=== PATIENT | male | born 1960 | race African-American/Black ===

== ENCOUNTER 2018-09-26 07:41 | Inpatient (IN) | payer MEDICAID ==
[~2018-09-26] VITALS: Ht 193 cm; Wt 85.3 kg
[2018-09-26] MEDS ORDERED: ONDANSETRON HCL 4MG/2ML INJ IV STA (11:51)
[2018-09-26 12:06] LABS: HEMATOCRIT. 36.3 % (42.0-52.0); HEMOGLOBIN. 11.8 g/dL (14.0-18.0); MEAN CORPUSCULAR HEMOGLOBIN 29.5 pg (28.0-32.0); MEAN CORPUSCULAR VOLUME 90.9 fL (80.0-94.0); MEAN PLATELET VOLUME 8.5 fl (7.4-10.4); PLATELET 232 x1000/uL (130-400); RED BLOOD CELL COUNT 3.99 mill/uL (4.7-6.1); RED CELL DISTRIBUTION WIDTH 15.8 % (11.6-14.6)
[2018-09-26 12:08] LABS: CHLORIDE 94 mEq/L (98-107)
[2018-09-26 12:34] LABS: PLATELET ESTIMATE NORMAL
[2018-09-26] MEDS ORDERED: SODIUM POLYSTYRENE SULFONATE 15 G/60 ML BOT PO ONE (13:00)
[2018-09-26] MEDS ORDERED: ALBUTEROL (0.083%) 2.5MG/3ML NEB HHN ONE (13:00)
[2018-09-26] MEDS ORDERED: INSULIN REGULAR (HUMULIN R) 300UNITS/3ML IV ONE (13:00)
[2018-09-26] MEDS ORDERED: DEXTROSE 50% WATER 50ML SYRINGE IV ONE ×2 (13:00→16:57)
[2018-09-26] MEDS ORDERED: SODIUM BICARBONATE 8.4% 1 MEQ/ML 50ML SYR IV ONE (13:00)
[2018-09-26] MEDS ORDERED: ONDANSETRON HCL 4MG/2ML INJ IV PRN (13:45)
[2018-09-26] MEDS ORDERED: CLONIDINE 0.1MG TABLET PO PRN (13:45)
[2018-09-26] MEDS: ACETAMINOPHEN 325MG TABLET PO PRN (20:16)
[2018-09-27] VITALS: BP 111/66
[2018-09-27] MEDS: ZOLPIDEM TARTRATE 5MG TABLET PO PRN (00:19)
[2018-09-27 04:00] VITALS: BP 113/79
[2018-09-27 08:00] VITALS: BP 120/87
[2018-09-27] MEDS: ENOXAPARIN 30MG/0.3ML SYR SUBCUT SCH (08:15)
[2018-09-27 09:03] LABS: HEMATOCRIT. 33.9 % (42.0-52.0); HEMOGLOBIN. 11.1 g/dL (14.0-18.0); MEAN CORPUSCULAR HEMOGLOBIN 29.5 pg (28.0-32.0); MEAN CORPUSCULAR VOLUME 89.9 fL (80.0-94.0); MEAN PLATELET VOLUME 8.2 fl (7.4-10.4); PLATELET 223 x1000/uL (130-400); RED BLOOD CELL COUNT 3.77 mill/uL (4.7-6.1); RED CELL DISTRIBUTION WIDTH 15.3 % (11.6-14.6)
[2018-09-27 12:08] LABS: PLATELET ESTIMATE NORMAL
[2018-09-27] MEDS: HYDROCODONE/ACETAMINOPHEN 10/325MG TABLET PO PRN (15:05)
[2018-09-27] MEDS: CYCLOBENZAPRINE 10MG TABLET PO PRN (17:53)
[2018-09-27 20:00] VITALS: BP 102/73
[2018-09-28] VITALS (7 sets, daily range): BP systolic 94–134; BP diastolic 67–85
[2018-09-28] MEDS: HYDROCODONE/ACETAMINOPHEN 10/325MG TABLET PO PRN ×2 (05:37→23:36)
[2018-09-28 07:12] LABS: HEMATOCRIT. 35.7 % (42.0-52.0); HEMOGLOBIN. 11.6 g/dL (14.0-18.0); MEAN CORPUSCULAR HEMOGLOBIN 29.5 pg (28.0-32.0); MEAN CORPUSCULAR VOLUME 90.9 fL (80.0-94.0); MEAN PLATELET VOLUME 8.6 fl (7.4-10.4); PLATELET 213 x1000/uL (130-400); RED BLOOD CELL COUNT 3.93 mill/uL (4.7-6.1); RED CELL DISTRIBUTION WIDTH 15.3 % (11.6-14.6)
[2018-09-28] MEDS: ENOXAPARIN 30MG/0.3ML SYR SUBCUT SCH (08:13)
[2018-09-28] MEDS ORDERED: HEPARIN SODIUM 1,000 UNIT/1ML VIAL IV ONE (10:38)
[2018-09-28] MEDS ORDERED: BUPIVACAINE HCL/PF 0.5% (5MG/ML) 10ML ONE (10:38)
[2018-09-28] MEDS ORDERED: BACITRACIN 15GM TUBE TOP ONE (10:38)
[2018-09-28] MEDS ORDERED: LIDOCAINE HCL/PF 1% 10 MG/ML 5ML VIAL ONE (10:39)
[2018-09-28] MEDS ORDERED: MORPHINE SULFATE 4 MG/ML CPJ (NOT FOR IM USE) IV PRN (11:00)
[2018-09-28] MEDS ORDERED: GELATIN SPONGE,ABSORBABLE 12-7MM SPONGE ONE (11:17)
[2018-09-28] MEDS ORDERED: THROMBIN (BOVINE) 5000 UNITS/VIAL TOP ONE (11:17)
[2018-09-28] MEDS ORDERED: BACITRACIN 50,000 UNITS/VIAL ONE (11:20)
[2018-09-28] MEDS ORDERED: MIDAZOLAM HCL 2 MG/2 ML VIAL ONE (11:23)
[2018-09-28] MEDS ORDERED: PROPOFOL 200MG/20ML VIAL IV ONE (11:23)
[2018-09-28] MEDS ORDERED: FENTANYL CITRATE/PF 50MCG/ML 2ML VIAL ONE (11:23)
[2018-09-28] MEDS ORDERED: HYDROMORPHONE HCL/PF 2MG/ML CPJ IV PRN (12:30)
[2018-09-28] MEDS ORDERED: ONDANSETRON HCL 4MG/2ML INJ IV PRN (12:30)
[2018-09-28] MEDS: MORPHINE SULFATE 4 MG/ML CPJ (NOT FOR IM USE) IV PRN ×2 (13:52→20:43)
[2018-09-28] MEDS: ACETAMINOPHEN 500MG TABLET PO SCH ×2 (15:27→22:00)
[2018-09-28] MEDS: ZOLPIDEM TARTRATE 5MG TABLET PO PRN (20:59)
[2018-09-28] MEDS: CYCLOBENZAPRINE 10MG TABLET PO PRN (20:59)
[2018-09-29] VITALS: BP 118/78
[2018-09-29 04:00] VITALS: BP 111/82
[2018-09-29] MEDS: ACETAMINOPHEN 500MG TABLET PO SCH ×2 (06:00→14:00)
[2018-09-29 07:33] LABS: HEMATOCRIT. 35.1 % (42.0-52.0); HEMOGLOBIN. 11.4 g/dL (14.0-18.0); MEAN CORPUSCULAR HEMOGLOBIN 29.3 pg (28.0-32.0); MEAN CORPUSCULAR VOLUME 90.1 fL (80.0-94.0); MEAN PLATELET VOLUME 8.9 fl (7.4-10.4); PLATELET 222 x1000/uL (130-400); RED CELL DISTRIBUTION WIDTH 15.5 % (11.6-14.6)
[2018-09-29 07:58] VITALS: BP 114/78
[2018-09-29] MEDS: ENOXAPARIN 30MG/0.3ML SYR SUBCUT SCH (08:12)
[2018-09-29] MEDS: HYDROCODONE/ACETAMINOPHEN 10/325MG TABLET PO PRN ×4 (08:12→23:43)
[2018-09-29] MEDS: CYCLOBENZAPRINE 10MG TABLET PO PRN (08:15)
[2018-09-29 11:02] LABS: PLATELET ESTIMATE NORMAL
[2018-09-29 12:00] VITALS: BP 114/60
[2018-09-29 14:54] LABS: PLATELET ESTIMATE NORMAL
[2018-09-29 16:07] VITALS: BP 102/70
[2018-09-29] MEDS: DIPHENHYDRAMINE 50MG/ML VIAL IV PRN (18:07)
[2018-09-29 20:00] VITALS: BP 109/74
[2018-09-29] MEDS: ZOLPIDEM TARTRATE 5MG TABLET PO PRN (23:44)
[2018-09-30] VITALS (10 sets, daily range): BP systolic 95–111; BP diastolic 56–82
[2018-09-30] MEDS: DIPHENHYDRAMINE 50MG/ML VIAL IV PRN ×2 (03:34→20:01)
[2018-09-30] MEDS: MORPHINE SULFATE 4 MG/ML CPJ (NOT FOR IM USE) IV PRN (03:46)
[2018-09-30] MEDS: HYDROCODONE/ACETAMINOPHEN 10/325MG TABLET PO PRN ×3 (08:36→20:00)
[2018-09-30] MEDS: ENOXAPARIN 30MG/0.3ML SYR SUBCUT SCH (08:37)
[2018-09-30] MEDS: ACETAMINOPHEN 500MG TABLET PO SCH (14:00)
[2018-09-30] MEDS: CYCLOBENZAPRINE 10MG TABLET PO PRN (17:04)
[2018-09-30] MEDS: ACETAMINOPHEN 325MG TABLET PO PRN (17:04)
[2018-10-01] VITALS: BP 115/66
[2018-10-01] MEDS: ZOLPIDEM TARTRATE 5MG TABLET PO PRN ×2 (01:05→01:07)
[2018-10-01] MEDS: HYDROCODONE/ACETAMINOPHEN 10/325MG TABLET PO PRN ×2 (01:12→22:37)
[2018-10-01 04:00] VITALS: BP 105/60
[2018-10-01 05:56] LABS: HEMOGLOBIN. 11.3 g/dL (14.0-18.0); MEAN CORPUSCULAR HEMOGLOBIN 29.5 pg (28.0-32.0); MEAN CORPUSCULAR VOLUME 91.1 fL (80.0-94.0); MEAN PLATELET VOLUME 8.7 fl (7.4-10.4); PLATELET 194 x1000/uL (130-400); RED BLOOD CELL COUNT 3.84 mill/uL (4.7-6.1); RED CELL DISTRIBUTION WIDTH 15.2 % (11.6-14.6)
[2018-10-01] MEDS: DIPHENHYDRAMINE 50MG/ML VIAL IV PRN ×2 (05:57→18:40)
[2018-10-01 08:00] VITALS: BP 120/80
[2018-10-01] MEDS: MORPHINE SULFATE 4 MG/ML CPJ (NOT FOR IM USE) IV PRN ×2 (08:59→15:49)
[2018-10-01] MEDS: CYCLOBENZAPRINE 10MG TABLET PO PRN (08:59)
[2018-10-01] MEDS: ENOXAPARIN 30MG/0.3ML SYR SUBCUT SCH (09:00)
[2018-10-01 12:00] VITALS: BP 122/79
[2018-10-01] MEDS: ACETAMINOPHEN 500MG TABLET PO SCH (15:48)
[2018-10-01 16:00] VITALS: BP 112/69
[2018-10-01 16:57] LABS: PLATELET ESTIMATE NORMAL
[2018-10-01 19:56] VITALS: BP 136/75
[2018-10-02] VITALS: BP 118/68
[2018-10-02] MEDS: MORPHINE SULFATE 4 MG/ML CPJ (NOT FOR IM USE) IV PRN (03:03)
[2018-10-02] MEDS: DIPHENHYDRAMINE 50MG/ML VIAL IV PRN ×3 (03:11→20:22)
[2018-10-02 04:00] VITALS: BP 113/60
[2018-10-02 06:16] LABS: HEMATOCRIT. 36.2 % (42.0-52.0); HEMOGLOBIN. 11.5 g/dL (14.0-18.0); MEAN CORPUSCULAR HEMOGLOBIN 29.2 pg (28.0-32.0); MEAN CORPUSCULAR VOLUME 91.7 fL (80.0-94.0); PLATELET 158 x1000/uL (130-400); RED BLOOD CELL COUNT 3.95 mill/uL (4.7-6.1); RED CELL DISTRIBUTION WIDTH 15.5 % (11.6-14.6)
[2018-10-02 08:00] VITALS: BP 122/81
[2018-10-02] MEDS: ENOXAPARIN 30MG/0.3ML SYR SUBCUT SCH (08:55)
[2018-10-02] MEDS: HYDROCODONE/ACETAMINOPHEN 10/325MG TABLET PO PRN ×3 (08:55→18:14)
[2018-10-02] MEDS: CYCLOBENZAPRINE 10MG TABLET PO PRN ×2 (08:55→18:13)
[2018-10-02 12:00] VITALS: BP 113/63
[2018-10-02 16:00] VITALS: BP 110/67
[2018-10-02 17:27] LABS: PLATELET ESTIMATE NORMAL
[2018-10-02 20:00] VITALS: BP 102/67
[2018-10-03] VITALS: BP 147/91
[2018-10-03 04:00] VITALS: BP 138/86
[2018-10-03 06:36] LABS: HEMATOCRIT. 31.4 % (42.0-52.0); HEMOGLOBIN. 10.6 g/dL (14.0-18.0); MEAN CORPUSCULAR HEMOGLOBIN 30.1 pg (28.0-32.0); MEAN CORPUSCULAR VOLUME 89.3 fL (80.0-94.0); MEAN PLATELET VOLUME 8.9 fl (7.4-10.4); PLATELET 182 x1000/uL (130-400); RED BLOOD CELL COUNT 3.52 mill/uL (4.7-6.1); RED CELL DISTRIBUTION WIDTH 15.1 % (11.6-14.6)
[2018-10-03 08:00] VITALS: BP 144/87
[2018-10-03] MEDS: CYCLOBENZAPRINE 10MG TABLET PO PRN (09:02)
[2018-10-03] MEDS: ENOXAPARIN 30MG/0.3ML SYR SUBCUT SCH (09:03)
[2018-10-03] MEDS: HYDROCODONE/ACETAMINOPHEN 10/325MG TABLET PO PRN ×3 (09:03→12:51)
[2018-10-03] MEDS: DIPHENHYDRAMINE 50MG/ML VIAL IV PRN (09:03)
[2018-10-03 12:00] VITALS: BP 110/72
[2018-10-03 13:23] LABS: PLATELET ESTIMATE NORMAL
[2018-10-03] MEDS: ACETAMINOPHEN 500MG TABLET PO SCH (13:31)
[2018-10-03 15:35] VITALS: BP 110/72
== END 2018-10-03 17:00 | disposition home or self-care (01) | DRG 444 ==
LOC: ER 07:52 → ENRESERV 22:32 → 8WST 23:35
PROVIDERS: ADMIT Internal Medicine; ATTEND Internal Medicine
PROC: 5A1D70Z Performance of Urinary Filtration, Intermittent, Less than 6 Hours Per Day (ICD-10-PCS; 2018-09-27)
PROC: 03180ZD Bypass Left Brachial Artery to Upper Arm Vein, Open Approach (ICD-10-PCS; principal; 2018-09-28)
PROC: 5A1D70Z Performance of Urinary Filtration, Intermittent, Less than 6 Hours Per Day (ICD-10-PCS; 2018-09-28)
PROC: 5A1D70Z Performance of Urinary Filtration, Intermittent, Less than 6 Hours Per Day (ICD-10-PCS; 2018-09-29)
PROC: 5A1D70Z Performance of Urinary Filtration, Intermittent, Less than 6 Hours Per Day (ICD-10-PCS; 2018-10-01)
PROC: 5A1D70Z Performance of Urinary Filtration, Intermittent, Less than 6 Hours Per Day (ICD-10-PCS; 2018-10-03)
DX: I12.0 Hypertensive chronic kidney disease with stage 5 chronic kidney disease or end stage renal disease (principal); E87.1 Hypo-osmolality and hyponatremia; N18.6 End stage renal disease; E87.5 Hyperkalemia; D63.8 Anemia in other chronic diseases classified elsewhere; M48.061 Spinal stenosis, lumbar region without neurogenic claudication; F19.10 Other psychoactive substance abuse, uncomplicated; M47.896 Other spondylosis, lumbar region; F17.200 Nicotine dependence, unspecified, uncomplicated; H54.61 Unqualified visual loss, right eye, normal vision left eye; Z99.2 Dependence on renal dialysis; Z59.0 Homelessness; Z71.6 Tobacco abuse counseling
CPT/HCPCS: 36415; 71045; 72148; 80048; 82962; 83605; 83880; 84484; 93005; 93970; 96374; 96375; 97116; 97162; 99285; C1893; J1200; J1644; J1650; J1815; J2250; J2270; J2405; J2704; J3010; J3490

== ENCOUNTER 2018-10-10 13:02 | Inpatient (IN) | payer MEDICAID ==
[~2018-10-10] VITALS: Ht 180.3 cm; Wt 86.7 kg
[2018-10-10 14:52] LABS: BASOPHILS % 0.8 % (0.0-2.0); EOSINOPHILS % 1.8 % (0.0-5.0); HEMATOCRIT. 31.3 % (42.0-52.0); HEMOGLOBIN. 10.4 g/dL (14.0-18.0); LYMPHOCYTES % 14.6 % (20.0-50.0); MEAN CORPUSCULAR HEMOGLOBIN 29.7 pg (28.0-32.0); MEAN CORPUSCULAR VOLUME 89.4 fL (80.0-94.0); MEAN PLATELET VOLUME 7.9 fl (7.4-10.4); MONOCYTES % 13.6 % (2.0-8.0); NEUTROPHILS % 69.2 % (40.0-76.0); PLATELET 197 x1000/uL (130-400); RED CELL DISTRIBUTION WIDTH 15.3 % (11.6-14.6)
[2018-10-10 15:04] LABS: CHLORIDE 95 mEq/L (98-107); PROTHROMBIN TIME 10.7 sec (9.6-11.0)
[2018-10-10 22:00] VITALS: BP 154/93
[2018-10-11] MEDS ORDERED: EPOETIN ALFA 4000UNITS/ML VIAL SUBCUT NR (01:00)
[2018-10-11] MEDS ORDERED: METO-411 MT (02:39)
[2018-10-11] MEDS ORDERED: LISI-604 MT (02:39)
[2018-10-11] MEDS ORDERED: DILT360C27 MT (02:39)
[2018-10-11] MEDS ORDERED: MAGN400C MT (02:39)
[2018-10-11] MEDS ORDERED: DOCU-138 MT (02:39)
[2018-10-11] MEDS ORDERED: ISOS60TA4 MT (02:39)
[2018-10-11] MEDS ORDERED: EPOE200014 IJ (02:39)
[2018-10-11] MEDS ORDERED: ZOLPIDEM TARTRATE 5MG TABLET PO PRN (02:45)
[2018-10-11] MEDS ORDERED: CLONIDINE 0.2MG TABLET PO PRN (03:45)
[2018-10-11 04:00] VITALS: BP 129/76
[2018-10-11] MEDS: HYDROCODONE/ACETAMINOPHEN 10/325MG TABLET PO PRN ×3 (04:19→20:49)
[2018-10-11 08:00] VITALS: BP 123/94
[2018-10-11] MEDS: ISOSORBIDE MONONITRATE 60MG TABLET SR 24HR PO SCH (08:47)
[2018-10-11] MEDS: MAGNESIUM OXIDE 400MG TABLET PO SCH (08:48)
[2018-10-11] MEDS: DILTIAZEM HCL 180MG CAPSULE CD 24HR PO SCH (08:48)
[2018-10-11] MEDS: METOPROLOL TARTRATE 50MG TABLET PO SCH ×2 (08:48→20:48)
[2018-10-11] MEDS: LISINOPRIL 20MG TABLET PO SCH ×2 (08:49→20:48)
[2018-10-11] MEDS: DOCUSATE SODIUM 100MG CAPSULE PO SCH (09:00)
[2018-10-11 10:21] LABS: HEMOGLOBIN. 10.8 g/dL (14.0-18.0); MEAN CORPUSCULAR HEMOGLOBIN 29.3 pg (28.0-32.0); MEAN CORPUSCULAR VOLUME 89.5 fL (80.0-94.0); PLATELET 206 x1000/uL (130-400); RED BLOOD CELL COUNT 3.68 mill/uL (4.7-6.1); RED CELL DISTRIBUTION WIDTH 15.7 % (11.6-14.6)
[2018-10-11 12:41] VITALS: BP 140/82
[2018-10-11 14:56] LABS: PLATELET ESTIMATE NORMAL
[2018-10-11] MEDS: ACETAMINOPHEN 650MG/20.3ML UDC PO PRN (16:43)
[2018-10-11 16:54] VITALS: BP 104/66
[2018-10-11 20:25] VITALS: BP 113/70
[2018-10-11] MEDS: DIPHENHYDRAMINE 50MG/ML VIAL IV PRN (22:24)
[2018-10-12] VITALS (7 sets, daily range): BP systolic 101–142; BP diastolic 58–92
[2018-10-12] MEDS: HYDROCODONE/ACETAMINOPHEN 10/325MG TABLET PO PRN ×3 (01:36→19:20)
[2018-10-12] MEDS: ACETAMINOPHEN 650MG/20.3ML UDC PO PRN (05:33)
[2018-10-12] MEDS: ISOSORBIDE MONONITRATE 60MG TABLET SR 24HR PO SCH (08:29)
[2018-10-12] MEDS: DILTIAZEM HCL 180MG CAPSULE CD 24HR PO SCH (08:29)
[2018-10-12] MEDS: LISINOPRIL 20MG TABLET PO SCH ×2 (08:31→21:08)
[2018-10-12] MEDS: METOPROLOL TARTRATE 50MG TABLET PO SCH ×2 (08:31→21:08)
[2018-10-12] MEDS: DOCUSATE SODIUM 100MG CAPSULE PO SCH (08:36)
[2018-10-12] MEDS: MAGNESIUM OXIDE 400MG TABLET PO SCH (08:36)
[2018-10-12] MEDS ORDERED: BACITRACIN 15GM TUBE TOP ONE (10:30)
[2018-10-12] MEDS ORDERED: LIDOCAINE HCL 1% 20ML VIAL (Pyxis) INJ ONE ×2 (10:30→15:43)
[2018-10-12] MEDS ORDERED: THROMBIN (BOVINE) 5000 UNITS/VIAL TOP ONE (10:30)
[2018-10-12] MEDS ORDERED: NORMAL SALINE 0.9% 10 ML SYR ONE (10:31)
[2018-10-12] MEDS ORDERED: BUPIVACAINE HCL/PF 0.5% (5MG/ML) 10ML ONE ×3 (10:31→15:40)
[2018-10-12] MEDS ORDERED: HEPARIN SODIUM 1,000 UNIT/1ML VIAL IV ONE (10:31)
[2018-10-12] MEDS ORDERED: SODIUM CHLORIDE 0.9% 250 ML IV ONE (10:32)
[2018-10-12] MEDS ORDERED: BACITRACIN 50,000 UNITS/VIAL ONE (10:32)
[2018-10-12] MEDS ORDERED: FENTANYL CITRATE/PF 50MCG/ML 2ML VIAL ONE (15:33)
[2018-10-12] MEDS ORDERED: MIDAZOLAM HCL 2 MG/2 ML VIAL ONE (15:33)
[2018-10-12] MEDS ORDERED: PROPOFOL 200MG/20ML VIAL IV ONE (15:43)
[2018-10-12] MEDS ORDERED: FENTANYL CITRATE/PF 50MCG/ML 2ML VIAL IV PRN (17:00)
[2018-10-12] MEDS ORDERED: ONDANSETRON HCL 4MG/2ML INJ IV PRN (17:00)
[2018-10-12] MEDS ORDERED: METOCLOPRAMIDE HCL 10MG/2ML VIAL IV PRN (17:00)
[2018-10-12] MEDS ORDERED: EPOETIN ALFA 4000UNITS/ML VIAL SUBCUT SCH (21:00)
[2018-10-12] MEDS: MORPHINE SULFATE 4 MG/ML CPJ (NOT FOR IM USE) IV PRN (21:13)
[2018-10-13] MEDS: DIPHENHYDRAMINE 50MG/ML VIAL IV PRN ×2 (00:43→04:01)
[2018-10-13 03:54] VITALS: BP 128/84
[2018-10-13] MEDS: HYDROCODONE/ACETAMINOPHEN 10/325MG TABLET PO PRN ×3 (05:55→20:47)
[2018-10-13] MEDS: MAGNESIUM OXIDE 400MG TABLET PO SCH (06:18)
[2018-10-13 08:00] VITALS: BP 135/78
[2018-10-13] MEDS ORDERED: ALTEPLASE 2MG/VIAL ITC NR (08:00)
[2018-10-13] MEDS: DOCUSATE SODIUM 100MG CAPSULE PO SCH (09:00)
[2018-10-13] MEDS: ACETAMINOPHEN 650MG/20.3ML UDC PO PRN (09:11)
[2018-10-13] MEDS: METOPROLOL TARTRATE 50MG TABLET PO SCH ×2 (09:12→20:46)
[2018-10-13] MEDS: LISINOPRIL 20MG TABLET PO SCH ×2 (09:12→20:46)
[2018-10-13] MEDS: DILTIAZEM HCL 180MG CAPSULE CD 24HR PO SCH (09:13)
[2018-10-13] MEDS: ISOSORBIDE MONONITRATE 60MG TABLET SR 24HR PO SCH (09:13)
[2018-10-13] MEDS: IRON SUCROSE COMPLEX 100 MG/5 ML ML IV SCH (09:14)
[2018-10-13] MEDS: MORPHINE SULFATE 4 MG/ML CPJ (NOT FOR IM USE) IV PRN (11:52)
[2018-10-13 12:00] VITALS: BP 117/73
[2018-10-13] MEDS ORDERED: SODIUM BICARBONATE 4% (2.4MEQ) 5ML VIAL IV ONE (12:34)
[2018-10-13] MEDS ORDERED: LIDOCAINE HCL 1% 20ML VIAL (Pyxis) INJ ONE (12:34)
[2018-10-13 16:00] VITALS: BP 121/74
[2018-10-13 20:00] VITALS: BP 136/84
[2018-10-14] VITALS: BP 128/80
[2018-10-14] MEDS: ONDANSETRON HCL 4MG/2ML INJ IV PRN ×2 (00:08→20:49)
[2018-10-14] MEDS: PANTOPRAZOLE SODIUM 40 MG/VIAL IV SCH ×2 (00:08→20:49)
[2018-10-14] MEDS: ACETAMINOPHEN 650MG/20.3ML UDC PO PRN (03:06)
[2018-10-14 04:00] VITALS: BP 122/72
[2018-10-14] MEDS: MORPHINE SULFATE 4 MG/ML CPJ (NOT FOR IM USE) IV PRN ×2 (05:20→22:00)
[2018-10-14 06:31] LABS: BASOPHILS % 0.5 % (0.0-2.0); HEMATOCRIT. 35.3 % (42.0-52.0); HEMOGLOBIN. 11.6 g/dL (14.0-18.0); LYMPHOCYTES % 7.9 % (20.0-50.0); MEAN CORPUSCULAR HEMOGLOBIN 29.5 pg (28.0-32.0); MEAN CORPUSCULAR VOLUME 89.6 fL (80.0-94.0); MEAN PLATELET VOLUME 8.4 fl (7.4-10.4); MONOCYTES % 11.6 % (2.0-8.0); PLATELET 153 x1000/uL (130-400); RED BLOOD CELL COUNT 3.93 mill/uL (4.7-6.1); RED CELL DISTRIBUTION WIDTH 15.4 % (11.6-14.6)
[2018-10-14 08:00] VITALS: BP 107/52
[2018-10-14] MEDS: ISOSORBIDE MONONITRATE 60MG TABLET SR 24HR PO SCH (09:00)
[2018-10-14] MEDS: DILTIAZEM HCL 180MG CAPSULE CD 24HR PO SCH (09:00)
[2018-10-14] MEDS: DOCUSATE SODIUM 100MG CAPSULE PO SCH (09:00)
[2018-10-14] MEDS: METOPROLOL TARTRATE 50MG TABLET PO SCH ×2 (09:00→20:57)
[2018-10-14] MEDS: LISINOPRIL 20MG TABLET PO SCH ×2 (09:00→20:57)
[2018-10-14] MEDS: IRON SUCROSE COMPLEX 100 MG/5 ML ML IV SCH (10:00)
[2018-10-14] MEDS: MAGNESIUM OXIDE 400MG TABLET PO SCH (10:00)
[2018-10-14] MEDS: HYDROCODONE/ACETAMINOPHEN 10/325MG TABLET PO PRN ×2 (10:42→18:15)
[2018-10-14 12:00] VITALS: BP 104/56
[2018-10-14 16:00] VITALS: BP 141/81
[2018-10-14 20:00] VITALS: BP 134/68
[2018-10-14] MEDS: DIPHENHYDRAMINE 50MG/ML VIAL IV PRN (20:55)
[2018-10-15] VITALS: BP 129/72
[2018-10-15] MEDS: HYDROCODONE/ACETAMINOPHEN 10/325MG TABLET PO PRN ×2 (02:05→08:46)
[2018-10-15 04:00] VITALS: BP 122/73
[2018-10-15] MEDS: ONDANSETRON HCL 4MG/2ML INJ IV PRN ×2 (05:35→18:55)
[2018-10-15] MEDS: MORPHINE SULFATE 4 MG/ML CPJ (NOT FOR IM USE) IV PRN ×2 (05:36→13:45)
[2018-10-15] MEDS: DOCUSATE SODIUM 100MG CAPSULE PO SCH ×2 (08:45→08:58)
[2018-10-15] MEDS: IRON SUCROSE COMPLEX 100 MG/5 ML ML IV SCH (08:45)
[2018-10-15] MEDS: DILTIAZEM HCL 180MG CAPSULE CD 24HR PO SCH (08:49)
[2018-10-15] MEDS: ISOSORBIDE MONONITRATE 60MG TABLET SR 24HR PO SCH (08:50)
[2018-10-15] MEDS: METOPROLOL TARTRATE 50MG TABLET PO SCH ×2 (08:50→21:00)
[2018-10-15] MEDS: LISINOPRIL 20MG TABLET PO SCH ×2 (08:51→21:00)
[2018-10-15] MEDS: MAGNESIUM OXIDE 400MG TABLET PO SCH (08:57)
[2018-10-15 12:17] VITALS: BP_SYST 125; BP_SYST 130; BP_DIAS 78; BP_DIAS 85
[2018-10-15] MEDS ORDERED: LEVOFLOXACIN 250MG PREMIX 50 ML IV ONE (15:45)
[2018-10-15] MEDS ORDERED: VANCOMYCIN 1,500 MG in DEXT 5% WATER 250 ML IV ONE (15:45)
[2018-10-15 15:55] VITALS: BP 129/74
[2018-10-15] MEDS ORDERED: LEVOFLOXACIN 500MG PREMIX 100 ML IV NR (17:00)
[2018-10-15 19:50] LABS: HEPATITIS B SURFACE ANTIGEN NEGATIVE
[2018-10-15 19:58] LABS: HEPATITIS B SURFACE AB 5.5 mIU/mL
[2018-10-15 20:00] VITALS: BP 146/87
[2018-10-15] MEDS: PANTOPRAZOLE SODIUM 40 MG/VIAL IV SCH (21:53)
[2018-10-16] VITALS: BP 102/87
[2018-10-16] MEDS ORDERED: VANCOMYCIN 2,000 MG in DEXT 5% WATER 500 ML IV NR ×2
[2018-10-16] MEDS: MORPHINE SULFATE 4 MG/ML CPJ (NOT FOR IM USE) IV PRN (01:41)
[2018-10-16] MEDS: HYDROCODONE/ACETAMINOPHEN 10/325MG TABLET PO PRN (01:48)
[2018-10-16] MEDS: ACETAMINOPHEN 650MG/20.3ML UDC PO PRN (03:54)
[2018-10-16] MEDS ORDERED: LEVOFLOXACIN 500MG PREMIX 100 ML IV NR (04:00)
[2018-10-16 04:04] VITALS: BP 117/78
[2018-10-16] MEDS: ONDANSETRON HCL 4MG/2ML INJ IV PRN (06:33)
[2018-10-16 08:11] LABS: BASOPHILS % 0.1 % (0.0-2.0); EOSINOPHILS % 2.2 % (0.0-5.0); HEMATOCRIT. 34.9 % (42.0-52.0); HEMOGLOBIN. 11.2 g/dL (14.0-18.0); LYMPHOCYTES % 8.5 % (20.0-50.0); MEAN CORPUSCULAR HEMOGLOBIN 29.2 pg (28.0-32.0); MEAN CORPUSCULAR VOLUME 90.6 fL (80.0-94.0); MEAN PLATELET VOLUME 8.1 fl (7.4-10.4); MONOCYTES % 14.8 % (2.0-8.0); NEUTROPHILS % 74.4 % (40.0-76.0); PLATELET 201 x1000/uL (130-400); RED BLOOD CELL COUNT 3.85 mill/uL (4.7-6.1); RED CELL DISTRIBUTION WIDTH 15.6 % (11.6-14.6)
[2018-10-16] MEDS: DILTIAZEM HCL 180MG CAPSULE CD 24HR PO SCH (08:14)
[2018-10-16] MEDS: IRON SUCROSE COMPLEX 100 MG/5 ML ML IV SCH (08:30)
[2018-10-16] MEDS: MAGNESIUM OXIDE 400MG TABLET PO SCH (08:31)
[2018-10-16] MEDS: ISOSORBIDE MONONITRATE 60MG TABLET SR 24HR PO SCH (08:31)
[2018-10-16] MEDS: LISINOPRIL 20MG TABLET PO SCH (09:00)
[2018-10-16] MEDS: DOCUSATE SODIUM 100MG CAPSULE PO SCH (09:00)
[2018-10-16] MEDS: METOPROLOL TARTRATE 50MG TABLET PO SCH (09:00)
[2018-10-16 13:30] VITALS: BP 117/49
[2018-10-17] MEDS ORDERED: LEVOFLOXACIN 250MG PREMIX 50 ML IV SCH (17:00)
== END 2018-10-16 14:23 | disposition home or self-care (01) | DRG 444 ==
LOC: ER 13:02 → 6WST 15:15 → EDBEDREQ 15:17 → ENRESERV 20:20
PROVIDERS: ADMIT Internal Medicine; ATTEND Internal Medicine
PROC: 03180JD Bypass Left Brachial Artery to Upper Arm Vein with Synthetic Substitute, Open Approach (ICD-10-PCS; principal; 2018-10-12)
PROC: 5A1D70Z Performance of Urinary Filtration, Intermittent, Less than 6 Hours Per Day (ICD-10-PCS; 2018-10-12)
PROC: 0JH63XZ Insertion of Tunneled Vascular Access Device into Chest Subcutaneous Tissue and Fascia, Percutaneous Approach (ICD-10-PCS; 2018-10-13)
PROC: 02HV33Z Insertion of Infusion Device into Superior Vena Cava, Percutaneous Approach (ICD-10-PCS; 2018-10-13)
PROC: B5181ZA Fluoroscopy of Superior Vena Cava using Low Osmolar Contrast, Guidance (ICD-10-PCS; 2018-10-13)
PROC: 5A1D70Z Performance of Urinary Filtration, Intermittent, Less than 6 Hours Per Day (ICD-10-PCS; 2018-10-15)
DX: T82.41XA Breakdown (mechanical) of vascular dialysis catheter, initial encounter (principal); I13.2 Hypertensive heart and chronic kidney disease with heart failure and with stage 5 chronic kidney disease, or end stage renal disease; N18.6 End stage renal disease; E11.22 Type 2 diabetes mellitus with diabetic chronic kidney disease; E87.1 Hypo-osmolality and hyponatremia; T82.868A Thrombosis due to vascular prosthetic devices, implants and grafts, initial encounter; D64.9 Anemia, unspecified; F17.210 Nicotine dependence, cigarettes, uncomplicated; H54.8 Legal blindness, as defined in USA; I50.9 Heart failure, unspecified; J44.9 Chronic obstructive pulmonary disease, unspecified; Y71.2 Prosthetic and other implants, materials and accessory cardiovascular devices associated with adverse incidents; M19.90 Unspecified osteoarthritis, unspecified site; Z99.2 Dependence on renal dialysis; I25.2 Old myocardial infarction; Y92.89 Other specified places as the place of occurrence of the external cause; Z79.899 Other long term (current) drug therapy
CPT/HCPCS: 36415; 36582; 71045; 77001; 80048; 84484; 86706; 87340; 87493; 93005; 93306; 99285; C1750; C1768; C1769; C1893; C9113; J0885; J1200; J1642; J1644; J1956; J2250; J2270; J2405; J2704; J2997; J3010; J3370; J3490; J7042; J7050; J7060

== ENCOUNTER 2018-10-23 22:32 | Inpatient (IN) | payer MEDICAID ==
[~2018-10-23] VITALS: Ht 180.3 cm; Wt 84.0 kg
[~2018-10-23 22:32] MED LIST: DILT360C27 MT; DOCU-138 MT; EPOE200014 IJ; ISOS60TA4 MT; LISI-604 MT; MAGN400C MT; METO-411 MT
[2018-10-24] MEDS ORDERED: MORPHINE SULFATE 4 MG/ML CPJ (NOT FOR IM USE) IV STA (01:33)
[2018-10-24] MEDS ORDERED: ONDANSETRON HCL 4MG/2ML INJ IV STA (01:33)
[2018-10-24 03:46] LABS: EOSINOPHILS % 6.8 % (0.0-5.0); HEMATOCRIT. 30.7 % (42.0-52.0); HEMOGLOBIN. 10.3 g/dL (14.0-18.0); LYMPHOCYTES % 19.5 % (20.0-50.0); MEAN CORPUSCULAR HEMOGLOBIN 30.4 pg (28.0-32.0); MEAN CORPUSCULAR VOLUME 91.1 fL (80.0-94.0); MEAN PLATELET VOLUME 7.8 fl (7.4-10.4); MONOCYTES % 11.7 % (2.0-8.0); PLATELET 244 x1000/uL (130-400); RED BLOOD CELL COUNT 3.37 mill/uL (4.7-6.1); RED CELL DISTRIBUTION WIDTH 16.7 % (11.6-14.6)
[2018-10-24 03:53] LABS: CHLORIDE 96 mEq/L (98-107)
[2018-10-24 03:57] LABS: ETHANOL BLOOD < 10 mg/dL
[2018-10-24 03:59] LABS: PHOSPHORUS 4.1 mg/dL (2.5-4.9)
[2018-10-24 06:45] VITALS: BP 138/86
[2018-10-24 06:59] VITALS: BP 138/86
[2018-10-24 08:00] VITALS: BP 138/86
[2018-10-24] MEDS ORDERED: CLONIDINE 0.1MG TABLET PO PRN (08:45)
[2018-10-24] MEDS ORDERED: MAGNESIUM/ALUMINUM HYDROXIDE/SIMETHICONE 30ML UDC PO PRN (08:45)
[2018-10-24] MEDS ORDERED: ACETAMINOPHEN 325MG TABLET PO PRN (08:45)
[2018-10-24] MEDS ORDERED: ONDANSETRON HCL 4MG/2ML INJ IV PRN (08:45)
[2018-10-24] MEDS ORDERED: IPRATROPIUM/ALBUTEROL 0.5-3(2.5)MG/3ML NEB INH PRN (08:45)
[2018-10-24] MEDS ORDERED: DOCUSATE SODIUM 100MG CAPSULE PO PRN (08:45)
[2018-10-24 08:57] LABS: *AMPHETAMINES SCREEN URINE NEGATIVE (NEGATIVE); *BARBITURATES SCREEN URINE NEGATIVE (NEGATIVE); *BENZODIAZEPINES SCREEN URINE NEGATIVE (NEGATIVE); *COCAINE SCREEN URINE PRESUMTIVE POSITIVE (NEGATIVE)
[2018-10-24 08:58] LABS: CANNABINOID URINE SCREEN NEGATIVE (NEGATIVE); METHADONE URINE SCREEN NEGATIVE (NEGATIVE); OPIATES URINE SCREEN PRESUMTIVE POSITIVE (NEGATIVE); PHENCYCLIDINE URINE SCREEN NEGATIVE (NEGATIVE)
[2018-10-24] MEDS ORDERED: HEPARIN 5000 UNITS/ML VIAL IV PRN ×2 (09:00)
[2018-10-24] MEDS ORDERED: HEPARIN 25,000 UNITS PREMIX 500 ML IV PRN (10:00)
[2018-10-24 10:24] LABS: PARTIAL THROMBOPLASTIN TIME 29.7 sec (23.4-31.0); PROTHROMBIN TIME 10.4 sec (9.6-11.0)
[2018-10-24] MEDS ORDERED: HEPARIN 5000 UNITS/ML VIAL IV SCH (10:35)
[2018-10-24 11:54] VITALS: BP 118/64
[2018-10-24 16:00] VITALS: BP 116/67
[2018-10-24 20:00] VITALS: BP 126/67
[2018-10-24] MEDS: HYDROCODONE/ACETAMINOPHEN 5/325MG TABLET PO PRN (20:17)
[2018-10-24] MEDS ORDERED: EPOETIN ALFA 4000UNITS/ML VIAL SUBCUT SCH (21:00)
[2018-10-24] MEDS: IRON SUCROSE COMPLEX 100 MG/5 ML ML IV SCH (21:37)
[2018-10-25] MEDS: HYDROCODONE/ACETAMINOPHEN 5/325MG TABLET PO PRN ×4 (01:27→22:34)
[2018-10-25 04:00] VITALS: BP 131/73
[2018-10-25 07:30] LABS: BASOPHILS % 1.7 % (0.0-2.0); EOSINOPHILS % 7.2 % (0.0-5.0); HEMATOCRIT. 30.8 % (42.0-52.0); HEMOGLOBIN. 9.9 g/dL (14.0-18.0); MEAN CORPUSCULAR HEMOGLOBIN 29.6 pg (28.0-32.0); MEAN CORPUSCULAR VOLUME 91.8 fL (80.0-94.0); MEAN PLATELET VOLUME 8.3 fl (7.4-10.4); MONOCYTES % 13.1 % (2.0-8.0); PLATELET 175 x1000/uL (130-400); RED BLOOD CELL COUNT 3.35 mill/uL (4.7-6.1); RED CELL DISTRIBUTION WIDTH 16.6 % (11.6-14.6)
[2018-10-25 07:37] LABS: CHLORIDE 106 mEq/L (98-107)
[2018-10-25 07:47] LABS: LDL CHOLESTEROL 59 mg/dL (5-100)
[2018-10-25 07:48] LABS: HDL CHOLESTEROL 56 mg/dL (40-59)
[2018-10-25 08:00] VITALS: BP 138/83
[2018-10-25] MEDS: IRON SUCROSE COMPLEX 100 MG/5 ML ML IV SCH (09:20)
[2018-10-25 12:00] VITALS: BP 143/74
[2018-10-25 16:00] VITALS: BP 151/96
[2018-10-25 20:00] VITALS: BP 130/85
[2018-10-25] MEDS: DIPHENHYDRAMINE 50MG/ML VIAL IV PRN (22:10)
[2018-10-26] VITALS: BP 147/81
[2018-10-26 04:00] VITALS: BP 138/84
[2018-10-26] MEDS: HYDROCODONE/ACETAMINOPHEN 5/325MG TABLET PO PRN ×3 (04:08→19:42)
[2018-10-26 05:50] LABS: BASOPHILS % 2.8 % (0.0-2.0); EOSINOPHILS % 10.3 % (0.0-5.0); HEMOGLOBIN. 9.6 g/dL (14.0-18.0); LYMPHOCYTES % 30.8 % (20.0-50.0); MEAN CORPUSCULAR HEMOGLOBIN 29.8 pg (28.0-32.0); MEAN CORPUSCULAR VOLUME 92.8 fL (80.0-94.0); MEAN PLATELET VOLUME 8.3 fl (7.4-10.4); MONOCYTES % 11.5 % (2.0-8.0); NEUTROPHILS % 44.6 % (40.0-76.0); PLATELET 181 x1000/uL (130-400); RED BLOOD CELL COUNT 3.24 mill/uL (4.7-6.1); RED CELL DISTRIBUTION WIDTH 16.9 % (11.6-14.6)
[2018-10-26 08:00] VITALS: BP 141/86
[2018-10-26] MEDS ORDERED: MORPHINE SULFATE 4 MG/ML CPJ (NOT FOR IM USE) IV PRN (08:00)
[2018-10-26] MEDS ORDERED: BENZONATATE 100MG CAPSULE PO PRN (08:00)
[2018-10-26] MEDS: IRON SUCROSE COMPLEX 100 MG/5 ML ML IV SCH (09:14)
[2018-10-26] MEDS: GUAIFENESIN 200MG/10ML SUGAR FREE UDC PO PRN ×2 (09:48→21:34)
[2018-10-26 12:00] VITALS: BP 144/87
[2018-10-26 16:00] VITALS: BP 130/83
[2018-10-26] MEDS: DIPHENHYDRAMINE 50MG/ML VIAL IV PRN (19:42)
[2018-10-26 20:00] VITALS: BP 125/93
[2018-10-27 00:09] VITALS: BP 151/82
[2018-10-27 04:00] VITALS: BP 138/84
[2018-10-27] MEDS: HYDROCODONE/ACETAMINOPHEN 5/325MG TABLET PO PRN ×3 (04:27→18:45)
[2018-10-27 06:24] LABS: BASOPHILS % 2.4 % (0.0-2.0); EOSINOPHILS % 7.8 % (0.0-5.0); HEMATOCRIT. 30.2 % (42.0-52.0); HEMOGLOBIN. 9.8 g/dL (14.0-18.0); LYMPHOCYTES % 22.9 % (20.0-50.0); MEAN CORPUSCULAR HEMOGLOBIN 29.7 pg (28.0-32.0); MEAN CORPUSCULAR VOLUME 91.6 fL (80.0-94.0); MEAN PLATELET VOLUME 8.4 fl (7.4-10.4); MONOCYTES % 11.5 % (2.0-8.0); NEUTROPHILS % 55.4 % (40.0-76.0); PLATELET 154 x1000/uL (130-400); RED CELL DISTRIBUTION WIDTH 16.9 % (11.6-14.6)
[2018-10-27 08:00] VITALS: BP 151/88
[2018-10-27 12:00] VITALS: BP 131/92
[2018-10-27] MEDS: GUAIFENESIN 200MG/10ML SUGAR FREE UDC PO PRN (14:46)
[2018-10-27 16:00] VITALS: BP 133/88
[2018-10-27] MEDS: DIPHENHYDRAMINE 50MG/ML VIAL IV PRN ×2 (18:44→21:41)
[2018-10-27 20:00] VITALS: BP 137/83
[2018-10-27] MEDS: MORPHINE SULFATE 4 MG/ML CPJ (NOT FOR IM USE) IV PRN (21:41)
[2018-10-27] MEDS ORDERED: EPOETIN ALFA 4000UNITS/ML VIAL SUBCUT NR (22:30)
[2018-10-28 00:10] VITALS: BP 129/76
[2018-10-28] MEDS: GUAIFENESIN 200MG/10ML SUGAR FREE UDC PO PRN ×3 (00:34→23:57)
[2018-10-28] MEDS: HYDROCODONE/ACETAMINOPHEN 5/325MG TABLET PO PRN ×4 (00:39→23:57)
[2018-10-28 04:00] VITALS: BP 131/82
[2018-10-28 06:03] LABS: BASOPHILS % 2.3 % (0.0-2.0); EOSINOPHILS % 9.2 % (0.0-5.0); HEMATOCRIT. 28.7 % (42.0-52.0); HEMOGLOBIN. 9.5 g/dL (14.0-18.0); LYMPHOCYTES % 27.4 % (20.0-50.0); MEAN CORPUSCULAR HEMOGLOBIN 30.3 pg (28.0-32.0); MEAN CORPUSCULAR VOLUME 91.2 fL (80.0-94.0); MEAN PLATELET VOLUME 8.2 fl (7.4-10.4); MONOCYTES % 13.9 % (2.0-8.0); NEUTROPHILS % 47.2 % (40.0-76.0); PLATELET 162 x1000/uL (130-400); RED BLOOD CELL COUNT 3.15 mill/uL (4.7-6.1); RED CELL DISTRIBUTION WIDTH 16.7 % (11.6-14.6)
[2018-10-28 08:00] VITALS: BP 133/79
[2018-10-28 12:00] VITALS: BP 117/70
[2018-10-28 16:00] VITALS: BP 147/92
[2018-10-28] MEDS: DIPHENHYDRAMINE 50MG/ML VIAL IV PRN ×2 (16:22→20:32)
[2018-10-28 20:00] VITALS: BP 128/95
[2018-10-28] MEDS: MORPHINE SULFATE 4 MG/ML CPJ (NOT FOR IM USE) IV PRN (20:32)
[2018-10-29] VITALS (17 sets, daily range): BP systolic 117–152; BP diastolic 68–96
[2018-10-29] MEDS: HYDROCODONE/ACETAMINOPHEN 5/325MG TABLET PO PRN ×2 (06:40→20:55)
[2018-10-29] MEDS: DIPHENHYDRAMINE 50MG/ML VIAL IV PRN ×2 (06:41→15:40)
[2018-10-29] MEDS: GUAIFENESIN 200MG/10ML SUGAR FREE UDC PO PRN (11:19)
[2018-10-29] MEDS: MORPHINE SULFATE 4 MG/ML CPJ (NOT FOR IM USE) IV PRN (11:20)
[2018-10-29] MEDS ORDERED: LIDOCAINE HCL 1% 20ML VIAL (Pyxis) INJ ONE (11:24)
[2018-10-29] MEDS ORDERED: SODIUM BICARBONATE 4% (2.4MEQ) 5ML VIAL IV ONE (11:24)
[2018-10-29] MEDS ORDERED: IOHEXOL-300 100 ML BOTTLE ONE (11:24)
[2018-10-29] MEDS ORDERED: FENTANYL CITRATE/PF 50MCG/ML 2ML VIAL ONE (13:58)
[2018-10-29] MEDS ORDERED: ALTEPLASE 100MG/VIAL IV ONE (14:15)
[2018-10-29] MEDS ORDERED: ALTEPLASE 2MG/VIAL ITC NR (14:30)
[2018-10-29] MEDS ORDERED: FENTANYL CITRATE/PF 50MCG/ML 2ML VIAL IV NR (14:45)
[2018-10-30] VITALS: BP 142/89
[2018-10-30] MEDS: MORPHINE SULFATE 4 MG/ML CPJ (NOT FOR IM USE) IV PRN ×2 (00:06→09:14)
[2018-10-30] MEDS: DIPHENHYDRAMINE 50MG/ML VIAL IV PRN ×2 (00:06→09:14)
[2018-10-30 04:00] VITALS: BP 138/81
[2018-10-30] MEDS: HYDROCODONE/ACETAMINOPHEN 5/325MG TABLET PO PRN ×2 (06:17→10:51)
[2018-10-30] MEDS: GUAIFENESIN 200MG/10ML SUGAR FREE UDC PO PRN ×2 (06:22→10:49)
[2018-10-30 08:00] VITALS: BP 163/91
[2018-10-30 10:51] VITALS: BP 163/91
== END 2018-10-30 12:30 | disposition left against medical advice (07) | DRG 182 ==
LOC: ER 22:32 → 7WST 10-24 04:51 → EDBEDREQSVC 10-24 04:53 → EDBEDREQTM 10-24 04:53 → EDBEDREQ 10-24 04:53 → ENRESERV 10-24 05:29
PROVIDERS: ADMIT Internal Medicine; ATTEND Internal Medicine
PROC: 5A1D70Z Performance of Urinary Filtration, Intermittent, Less than 6 Hours Per Day (ICD-10-PCS; 2018-10-26)
PROC: 3E04317 Introduction of Other Thrombolytic into Central Vein, Percutaneous Approach (ICD-10-PCS; principal; 2018-10-29)
PROC: 057Y3ZZ Dilation of Upper Vein, Percutaneous Approach (ICD-10-PCS; 2018-10-29)
PROC: 037Y3ZZ Dilation of Upper Artery, Percutaneous Approach (ICD-10-PCS; 2018-10-29)
PROC: B51W1ZZ Fluoroscopy of Dialysis Shunt/Fistula using Low Osmolar Contrast (ICD-10-PCS; 2018-10-29)
PROC: B5181ZZ Fluoroscopy of Superior Vena Cava using Low Osmolar Contrast (ICD-10-PCS; 2018-10-29)
PROC: 5A1D70Z Performance of Urinary Filtration, Intermittent, Less than 6 Hours Per Day (ICD-10-PCS; 2018-10-29)
DX: T82.868A Thrombosis due to vascular prosthetic devices, implants and grafts, initial encounter (principal); I13.2 Hypertensive heart and chronic kidney disease with heart failure and with stage 5 chronic kidney disease, or end stage renal disease; I82.622 Acute embolism and thrombosis of deep veins of left upper extremity; E83.39 Other disorders of phosphorus metabolism; E87.1 Hypo-osmolality and hyponatremia; D50.9 Iron deficiency anemia, unspecified; F14.90 Cocaine use, unspecified, uncomplicated; I50.33 Acute on chronic diastolic (congestive) heart failure; I82.612 Acute embolism and thrombosis of superficial veins of left upper extremity; E87.5 Hyperkalemia; N18.6 End stage renal disease; H54.7 Unspecified visual loss; J44.9 Chronic obstructive pulmonary disease, unspecified; I77.0 Arteriovenous fistula, acquired; F17.200 Nicotine dependence, unspecified, uncomplicated; M19.90 Unspecified osteoarthritis, unspecified site; F19.90 Other psychoactive substance use, unspecified, uncomplicated; Z71.51 Drug abuse counseling and surveillance of drug abuser; Z79.899 Other long term (current) drug therapy; Z99.2 Dependence on renal dialysis
CPT/HCPCS: 36415; 36901; 71045; 73030; 80048; 80061; 80305; 80320; 82962; 83036; 83605; 83735; 84100; 84145; 84443; 93005; 93922; 93971; 96374; 96375; 99285; C1725; C1766; C1893; J0885; J1200; J1644; J2270; J2405; J2997; J3010; J3490; J7050; Q9967; G0480

== ENCOUNTER 2018-11-02 14:20 | Inpatient (IN) | payer MEDICAID ==
[~2018-11-02] VITALS: Ht 180.3 cm; Wt 83.9 kg
[2018-11-02 16:28] LABS: HEMATOCRIT. 33.7 % (42.0-52.0); HEMOGLOBIN. 10.6 g/dL (14.0-18.0); MEAN CORPUSCULAR HEMOGLOBIN 30.1 pg (28.0-32.0); MEAN CORPUSCULAR VOLUME 95.2 fL (80.0-94.0); MEAN PLATELET VOLUME 8.4 fl (7.4-10.4); PLATELET 243 x1000/uL (130-400); RED BLOOD CELL COUNT 3.54 mill/uL (4.7-6.1); RED CELL DISTRIBUTION WIDTH 17.4 % (11.6-14.6)
[2018-11-02 16:35] LABS: CHLORIDE 105 mEq/L (98-107); PROTHROMBIN TIME 10.3 sec (9.6-11.0)
[2018-11-02 16:56] LABS: PLATELET ESTIMATE NORMAL
[2018-11-02] MEDS ORDERED: IPRATROPIUM/ALBUTEROL 0.5-3(2.5)MG/3ML NEB INH PRN (19:30)
[2018-11-02] MEDS ORDERED: CLONIDINE 0.1MG TABLET PO PRN (19:30)
[2018-11-02] MEDS ORDERED: DOCUSATE SODIUM 100MG CAPSULE PO PRN (19:30)
[2018-11-02] MEDS ORDERED: ACETAMINOPHEN 325MG TABLET PO PRN (19:30)
[2018-11-02] MEDS ORDERED: ONDANSETRON HCL 4MG/2ML INJ IV PRN (19:30)
[2018-11-02 20:37] LABS: PHOSPHORUS 6.8 mg/dL (2.5-4.9)
[2018-11-02] MEDS ORDERED: EPOETIN ALFA 4000UNITS/ML VIAL SUBCUT ONE (22:45)
[2018-11-03] MEDS: HYDROCODONE/ACETAMINOPHEN 5/325MG TABLET PO PRN ×2 (02:30→22:36)
[2018-11-03 03:00] VITALS: BP 165/92
[2018-11-03] MEDS ORDERED: BENAZEPRIL 10MG TABLET PO SCH (03:00)
[2018-11-03 04:00] VITALS: BP 139/92
[2018-11-03] MEDS: MORPHINE SULFATE 4 MG/ML CPJ (NOT FOR IM USE) IV PRN ×3 (06:05→17:30)
[2018-11-03 08:00] VITALS: BP 151/94
[2018-11-03 08:06] LABS: HEMATOCRIT. 29.9 % (42.0-52.0); MEAN CORPUSCULAR VOLUME 93.1 fL (80.0-94.0); MEAN PLATELET VOLUME 8.4 fl (7.4-10.4); PLATELET 230 x1000/uL (130-400); RED BLOOD CELL COUNT 3.21 mill/uL (4.7-6.1); RED CELL DISTRIBUTION WIDTH 17.3 % (11.6-14.6)
[2018-11-03 12:00] LABS: PLATELET ESTIMATE NORMAL
[2018-11-03 12:10] VITALS: BP 153/94
[2018-11-03 16:10] VITALS: BP 150/85
[2018-11-03 20:00] VITALS: BP 148/99
[2018-11-03] MEDS ORDERED: EPOETIN ALFA 10000UNITS/ML VIAL SUBCUT ONE (22:00)
[2018-11-03] MEDS: DIPHENHYDRAMINE 50MG/ML VIAL IV PRN (22:34)
[2018-11-03] MEDS: GUAIFENESIN-DM 200MG-20MG/10ML UDC PO PRN (22:36)
[2018-11-04 00:27] VITALS: BP 141/78
[2018-11-04 04:00] VITALS: BP 150/92
[2018-11-04 08:00] VITALS: BP 138/88
[2018-11-04] MEDS: HYDROCODONE/ACETAMINOPHEN 5/325MG TABLET PO PRN (09:28)
[2018-11-04] MEDS: GUAIFENESIN-DM 200MG-20MG/10ML UDC PO PRN ×2 (09:49→20:28)
[2018-11-04 12:00] VITALS: BP 144/85
[2018-11-04 16:00] VITALS: BP 140/88
[2018-11-04] MEDS ORDERED: HEPARIN SODIUM 1,000 UNIT/1ML VIAL IV NR (17:37)
[2018-11-04 20:00] VITALS: BP 131/81
[2018-11-04] MEDS: MORPHINE SULFATE 4 MG/ML CPJ (NOT FOR IM USE) IV PRN (20:23)
[2018-11-04] MEDS: DIPHENHYDRAMINE 50MG/ML VIAL IV PRN (20:28)
[2018-11-04] MEDS: LORAZEPAM 0.5MG TABLET PO PRN (21:07)
[2018-11-05 00:32] VITALS: BP 146/99
[2018-11-05 04:00] VITALS: BP 126/88
[2018-11-05] MEDS: DIPHENHYDRAMINE 50MG/ML VIAL IV PRN ×3 (08:15→23:14)
[2018-11-05] MEDS: HYDROCODONE/ACETAMINOPHEN 5/325MG TABLET PO PRN ×3 (08:15→23:16)
[2018-11-05 08:17] VITALS: BP 127/90
[2018-11-05] MEDS ORDERED: LIDOCAINE HCL 1% 20ML VIAL (Pyxis) INJ ONE (08:46)
[2018-11-05] MEDS ORDERED: THROMBIN (BOVINE) 5000 UNITS/VIAL TOP ONE ×2 (08:46→15:16)
[2018-11-05] MEDS ORDERED: BACITRACIN 15GM TUBE TOP ONE (08:46)
[2018-11-05] MEDS ORDERED: SODIUM CHLORIDE 0.9% 1,000 ML ONE (08:47)
[2018-11-05] MEDS ORDERED: BACITRACIN 50,000 UNITS/VIAL ONE (08:47)
[2018-11-05] MEDS ORDERED: NORMAL SALINE 0.9% 10 ML SYR ONE (08:47)
[2018-11-05] MEDS ORDERED: SODIUM CHLORIDE 0.9% IRRIG SOL 1,000 ML IR ONE (08:47)
[2018-11-05] MEDS ORDERED: BUPIVACAINE HCL/PF 0.5% (5MG/ML) 10ML ONE (08:47)
[2018-11-05] MEDS ORDERED: HEPARIN SODIUM 1,000 UNIT/1ML VIAL IV ONE (08:48)
[2018-11-05 11:02] LABS: HEMATOCRIT. 31.8 % (42.0-52.0); HEMOGLOBIN. 10.4 g/dL (14.0-18.0); MEAN CORPUSCULAR HEMOGLOBIN 30.3 pg (28.0-32.0); MEAN CORPUSCULAR VOLUME 92.9 fL (80.0-94.0); MEAN PLATELET VOLUME 8.3 fl (7.4-10.4); PLATELET 156 x1000/uL (130-400); RED BLOOD CELL COUNT 3.42 mill/uL (4.7-6.1); RED CELL DISTRIBUTION WIDTH 17.7 % (11.6-14.6)
[2018-11-05 11:10] LABS: CHLORIDE 103 mEq/L (98-107)
[2018-11-05] MEDS: GUAIFENESIN-DM 200MG-20MG/10ML UDC PO PRN ×2 (11:20→20:47)
[2018-11-05 11:36] VITALS: BP 152/92
[2018-11-05 12:14] LABS: PLATELET ESTIMATE NORMAL
[2018-11-05] MEDS ORDERED: MIDAZOLAM HCL 2 MG/2 ML VIAL ONE (12:32)
[2018-11-05] MEDS ORDERED: FENTANYL CITRATE/PF 50MCG/ML 2ML VIAL ONE (12:32)
[2018-11-05] MEDS ORDERED: DIPHENHYDRAMINE 50MG/ML VIAL ONE (12:33)
[2018-11-05] MEDS ORDERED: PROPOFOL 200MG/20ML VIAL IV ONE (12:36)
[2018-11-05] MEDS ORDERED: SODIUM CHLORIDE 0.9% 10ML VIAL ONE (13:04)
[2018-11-05] MEDS ORDERED: CEFAZOLIN SODIUM 1000MG/VIAL ONE (13:04)
[2018-11-05] MEDS ORDERED: HEPARIN 1000 UNITS/ML 10ML ONE (14:30)
[2018-11-05] MEDS ORDERED: HYDROMORPHONE HCL/PF 2MG/ML CPJ IV PRN (14:45)
[2018-11-05 16:23] VITALS: BP 153/93
[2018-11-05] MEDS ORDERED: VANCOMYCIN 1 G PREMIX 200 ML IV ONE (16:45)
[2018-11-05] MEDS ORDERED: IRON SUCROSE COMPLEX 100 MG/5 ML ML IV SCH (17:30)
[2018-11-05 20:00] VITALS: BP 153/85
[2018-11-05] MEDS ORDERED: VANCOMYCIN 1,750 MG in DEXT 5% WATER 250 ML IV NR (20:00)
[2018-11-05] MEDS: MORPHINE SULFATE 4 MG/ML CPJ (NOT FOR IM USE) IV PRN (20:35)
[2018-11-05] MEDS ORDERED: EPOETIN ALFA 10000UNITS/ML VIAL SUBCUT NR (21:00)
[2018-11-05] MEDS: LORAZEPAM 0.5MG TABLET PO PRN ×2 (22:42→23:14)
[2018-11-06] VITALS: BP 132/89
[2018-11-06 04:00] VITALS: BP 133/79
[2018-11-06] MEDS: HYDROCODONE/ACETAMINOPHEN 5/325MG TABLET PO PRN ×2 (04:03→13:07)
[2018-11-06 06:15] LABS: HEMATOCRIT. 27.8 % (42.0-52.0); HEMOGLOBIN. 9.1 g/dL (14.0-18.0); MEAN CORPUSCULAR HEMOGLOBIN 30.6 pg (28.0-32.0); MEAN CORPUSCULAR VOLUME 92.9 fL (80.0-94.0); MEAN PLATELET VOLUME 8.7 fl (7.4-10.4); PLATELET 149 x1000/uL (130-400); RED BLOOD CELL COUNT 2.99 mill/uL (4.7-6.1); RED CELL DISTRIBUTION WIDTH 17.6 % (11.6-14.6)
[2018-11-06 08:00] VITALS: BP 153/87
[2018-11-06] MEDS: DIPHENHYDRAMINE 25MG CAPSULE PO PRN ×3 (10:05→14:02)
[2018-11-06] MEDS: MORPHINE SULFATE 4 MG/ML CPJ (NOT FOR IM USE) IV PRN (10:06)
[2018-11-06 12:00] VITALS: BP 130/79
[2018-11-06] MEDS: DIPHENHYDRAMINE 50MG/ML VIAL IV PRN (13:07)
[2018-11-06] MEDS: GUAIFENESIN-DM 200MG-20MG/10ML UDC PO PRN (13:07)
[2018-11-06 16:00] VITALS: BP 157/89
[2018-11-06 16:15] VITALS: BP 153/87
[2018-11-06 16:26] LABS: PLATELET ESTIMATE NORMAL
== END 2018-11-06 17:17 | disposition home or self-care (01) | DRG 182 ==
LOC: ER 14:20 → 7WST 18:48 → EDBEDREQ 18:51 → ENRESERV 23:07
PROVIDERS: ADMIT Internal Medicine; ATTEND Internal Medicine
PROC: 5A1D70Z Performance of Urinary Filtration, Intermittent, Less than 6 Hours Per Day (ICD-10-PCS; 2018-11-02)
PROC: 5A1D70Z Performance of Urinary Filtration, Intermittent, Less than 6 Hours Per Day (ICD-10-PCS; 2018-11-03)
PROC: 5A1D70Z Performance of Urinary Filtration, Intermittent, Less than 6 Hours Per Day (ICD-10-PCS; 2018-11-04)
PROC: 03CY0ZZ Extirpation of Matter from Upper Artery, Open Approach (ICD-10-PCS; principal; 2018-11-05)
PROC: 03QY0ZZ Repair Upper Artery, Open Approach (ICD-10-PCS; 2018-11-05)
DX: T82.868A Thrombosis due to vascular prosthetic devices, implants and grafts, initial encounter (principal); I13.2 Hypertensive heart and chronic kidney disease with heart failure and with stage 5 chronic kidney disease, or end stage renal disease; E83.39 Other disorders of phosphorus metabolism; E87.5 Hyperkalemia; E87.70 Fluid overload, unspecified; I45.81 Long QT syndrome; D50.9 Iron deficiency anemia, unspecified; F14.90 Cocaine use, unspecified, uncomplicated; I82.619 Acute embolism and thrombosis of superficial veins of unspecified upper extremity; N18.6 End stage renal disease; I50.32 Chronic diastolic (congestive) heart failure; Y83.2 Surgical operation with anastomosis, bypass or graft as the cause of abnormal reaction of the patient, or of later complication, without mention of misadventure at the time of the procedure; F17.200 Nicotine dependence, unspecified, uncomplicated; H54.8 Legal blindness, as defined in USA; J44.9 Chronic obstructive pulmonary disease, unspecified; M19.90 Unspecified osteoarthritis, unspecified site; M75.101 Unspecified rotator cuff tear or rupture of right shoulder, not specified as traumatic; Z99.2 Dependence on renal dialysis; Z79.899 Other long term (current) drug therapy
CPT/HCPCS: 36415; 71045; 80048; 82728; 83540; 83550; 83605; 83735; 84100; 84145; 84484; 87070; 87075; 93005; 96374; 96375; 99285; C1757; J0690; J1200; J1644; J2250; J2270; J2704; J3010; J3370; J3490; J7030; J7060; Q0163

== ENCOUNTER 2018-11-30 10:09 | Inpatient (IN) | payer MEDICAID ==
[2018-11-30] VITALS: BP 126/76
[~2018-11-30] VITALS: Ht 180.3 cm; Wt 83.3 kg
[2018-11-30] MEDS ORDERED: ACETAMINOPHEN 325MG TABLET PO STA (11:09)
[2018-11-30 11:51] LABS: BASOPHILS % 0.8 % (0.0-2.0); EOSINOPHILS % 1.7 % (0.0-5.0); HEMATOCRIT. 35.6 % (42.0-52.0); HEMOGLOBIN. 11.7 g/dL (14.0-18.0); LYMPHOCYTES % 18.3 % (20.0-50.0); MEAN CORPUSCULAR HEMOGLOBIN 32.1 pg (28.0-32.0); MEAN CORPUSCULAR VOLUME 97.3 fL (80.0-94.0); MEAN PLATELET VOLUME 8.1 fl (7.4-10.4); MONOCYTES % 14.8 % (2.0-8.0); NEUTROPHILS % 64.4 % (40.0-76.0); PLATELET 189 x1000/uL (130-400); RED BLOOD CELL COUNT 3.66 mill/uL (4.7-6.1); RED CELL DISTRIBUTION WIDTH 16.5 % (11.6-14.6)
[2018-11-30 11:56] LABS: CHLORIDE 99 mEq/L (98-107)
[2018-11-30] MEDS ORDERED: VANCOMYCIN 1 G PREMIX 200 ML IV ONE (12:45)
[2018-11-30] MEDS ORDERED: PIPERACILLIN/TAZ 3.375G PREMIX 50 ML IV ONE (12:45)
[2018-11-30] MEDS ORDERED: HYDROCODONE/ACETAMINOPHEN 5/325MG TABLET PO PRN (14:45)
[2018-11-30] MEDS ORDERED: DOCUSATE SODIUM 100MG CAPSULE PO PRN (14:45)
[2018-11-30] MEDS ORDERED: ENOXAPARIN 40MG/0.4ML SYR SUBCUT SCH (14:45)
[2018-11-30] MEDS ORDERED: IPRATROPIUM/ALBUTEROL 0.5-3(2.5)MG/3ML NEB INH PRN (14:45)
[2018-11-30] MEDS ORDERED: ONDANSETRON HCL 4MG/2ML INJ IV PRN (14:45)
[2018-11-30] MEDS ORDERED: ACETAMINOPHEN 325MG TABLET PO PRN (14:45)
[2018-11-30] MEDS ORDERED: ACETAMINOPHEN 650MG SUPP PR PRN (14:45)
[2018-11-30] MEDS ORDERED: CLONIDINE 0.1MG TABLET PO PRN (14:45)
[2018-11-30] MEDS ORDERED: ACETAMINOPHEN 650MG/20.3ML UDC GT PRN (14:45)
[2018-11-30 15:46] LABS: CLARITY URINE CLEAR (CLEAR); COLOR URINE YELLOW (YELLOW); KETONES URINE NEGATIVE (NEGATIVE); LEUKOCYTE ESTERASE URINE NEGATIVE (NEGATIVE); NITRITE URINE NEGATIVE (NEGATIVE); OCCULT BLOOD URINE NEGATIVE (NEGATIVE); PH URINE 7.5 (4.5-8.0); PROTEIN URINE 2+ (NEGATIVE); SPECIFIC GRAVITY URINE 1.016 (1.005-1.030); UROBILINOGEN URINE 0.2 E.U./dL (0.2-1.0)
[2018-11-30 16:05] LABS: *BENZODIAZEPINES SCREEN URINE NEGATIVE (NEGATIVE); METHADONE URINE SCREEN NEGATIVE (NEGATIVE)
[2018-11-30 16:06] LABS: *AMPHETAMINES SCREEN URINE NEGATIVE (NEGATIVE); *BARBITURATES SCREEN URINE NEGATIVE (NEGATIVE); CANNABINOID URINE SCREEN NEGATIVE (NEGATIVE); OPIATES URINE SCREEN NEGATIVE (NEGATIVE); PHENCYCLIDINE URINE SCREEN NEGATIVE (NEGATIVE)
[2018-11-30 16:10] LABS: *COCAINE SCREEN URINE PRESUMTIVE POSITIVE (NEGATIVE)
[2018-11-30] MEDS: HYDROCODONE/ACETAMINOPHEN 10/325MG TABLET PO PRN (17:27)
[2018-11-30 22:43] VITALS: BP 136/77
[2018-11-30 22:51] VITALS: BP 136/77
[2018-11-30] MEDS ORDERED: ASPI-1158 PO (23:35)
[2018-12-01] MEDS: GUAIFENESIN 200MG/10ML SUGAR FREE UDC PO PRN ×2 (00:27→22:45)
[2018-12-01] MEDS: HYDROCODONE/ACETAMINOPHEN 10/325MG TABLET PO PRN ×4 (00:28→20:16)
[2018-12-01 04:00] VITALS: BP 146/82
[2018-12-01] MEDS: SODIUM CHLORIDE 0.9% INJ 3ML FLUSH IVF SCH ×3 (05:35→22:46)
[2018-12-01] MEDS: DIPHENHYDRAMINE 50MG/ML VIAL IV PRN ×3 (06:59→22:45)
[2018-12-01 07:36] LABS: HEMATOCRIT. 31.9 % (42.0-52.0); HEMOGLOBIN. 10.7 g/dL (14.0-18.0); MEAN CORPUSCULAR HEMOGLOBIN 32.3 pg (28.0-32.0); MEAN CORPUSCULAR VOLUME 96.3 fL (80.0-94.0); MEAN PLATELET VOLUME 8.2 fl (7.4-10.4); PLATELET 174 x1000/uL (130-400); RED BLOOD CELL COUNT 3.31 mill/uL (4.7-6.1); RED CELL DISTRIBUTION WIDTH 16.1 % (11.6-14.6)
[2018-12-01 07:48] LABS: CHLORIDE 102 mEq/L (98-107)
[2018-12-01 08:00] VITALS: BP 108/73
[2018-12-01 08:02] LABS: LDL CHOLESTEROL 51 mg/dL (5-100)
[2018-12-01 08:03] LABS: HDL CHOLESTEROL 69 mg/dL (40-59)
[2018-12-01] MEDS: ENOXAPARIN 30MG/0.3ML SYR SUBCUT SCH (08:40)
[2018-12-01 11:33] LABS: PLATELET ESTIMATE NORMAL
[2018-12-01 12:00] VITALS: BP 111/64
[2018-12-01 16:00] VITALS: BP 128/74
[2018-12-01 20:02] VITALS: BP 112/73
[2018-12-02] VITALS: BP 125/74
[2018-12-02] MEDS: HYDROCODONE/ACETAMINOPHEN 10/325MG TABLET PO PRN ×2 (00:33→05:35)
[2018-12-02] MEDS: DIPHENHYDRAMINE 50MG/ML VIAL IV PRN ×3 (03:27→13:20)
[2018-12-02] MEDS: GUAIFENESIN 200MG/10ML SUGAR FREE UDC PO PRN ×2 (03:43→13:20)
[2018-12-02 04:05] VITALS: BP 101/65
[2018-12-02 05:30] VITALS: BP 110/80
[2018-12-02] MEDS: SODIUM CHLORIDE 0.9% INJ 3ML FLUSH IVF SCH (05:35)
[2018-12-02 08:00] VITALS: BP 140/77
[2018-12-02] MEDS: ENOXAPARIN 30MG/0.3ML SYR SUBCUT SCH (09:14)
[2018-12-02 11:01] VITALS: BP 140/77
[2018-12-02 12:00] VITALS: BP 138/79
== END 2018-12-02 14:36 | disposition home or self-care (01) | DRG 720 ==
LOC: ER 10:09 → 6WST 14:35 → EDBEDREQ 14:39 → EDBEDREQSVC 14:39 → ENRESERV 20:46
PROVIDERS: ADMIT Family Medicine; ATTEND Family Medicine
PROC: 5A1D70Z Performance of Urinary Filtration, Intermittent, Less than 6 Hours Per Day (ICD-10-PCS; principal; 2018-12-01)
DX: A41.9 Sepsis, unspecified organism (principal); I13.2 Hypertensive heart and chronic kidney disease with heart failure and with stage 5 chronic kidney disease, or end stage renal disease; E87.2 Acidosis; N18.6 End stage renal disease; D50.9 Iron deficiency anemia, unspecified; D63.1 Anemia in chronic kidney disease; F12.90 Cannabis use, unspecified, uncomplicated; F14.90 Cocaine use, unspecified, uncomplicated; F17.210 Nicotine dependence, cigarettes, uncomplicated; H35.00 Unspecified background retinopathy; H54.8 Legal blindness, as defined in USA; I50.9 Heart failure, unspecified; J44.9 Chronic obstructive pulmonary disease, unspecified; Z86.718 Personal history of other venous thrombosis and embolism; Z99.2 Dependence on renal dialysis; M19.90 Unspecified osteoarthritis, unspecified site; M54.9 Dorsalgia, unspecified; Z79.899 Other long term (current) drug therapy
CPT/HCPCS: 36415; 71045; 80061; 80305; 83605; 93005; 96365; 96367; 99291; C1893; J1200; J1650; J2543; J3370

== ENCOUNTER 2019-04-10 18:23 | Inpatient (IN) | payer MEDICAID ==
[~2019-04-10] VITALS: Ht 177.8 cm; Wt 87.5 kg
[~2019-04-10 18:23] MED LIST changes: +ASPI-1158 PO; +DIPH25CA83 PO; -EPOE200014 IJ; +HYDR-4001 PO; +OMEP20TA15 PO
[2019-04-10] MEDS ORDERED: MORPHINE SULFATE 4 MG/ML CPJ (NOT FOR IM USE) IV STA (21:04)
[2019-04-10] MEDS ORDERED: ONDANSETRON HCL 4MG/2ML INJ IV STA (21:04)
[2019-04-10] MEDS ORDERED: IPRATROPIUM/ALBUTEROL 0.5-3(2.5)MG/3ML NEB HHN ONE (21:15)
[2019-04-10] MEDS ORDERED: FUROSEMIDE 40MG/4ML VIAL IV ONE (21:15)
[2019-04-10 22:39] LABS: CLARITY URINE CLEAR (CLEAR); COLOR URINE YELLOW (YELLOW); KETONES URINE NEGATIVE (NEGATIVE); LEUKOCYTE ESTERASE URINE NEGATIVE (NEGATIVE); NITRITE URINE NEGATIVE (NEGATIVE); OCCULT BLOOD URINE 1+ (NEGATIVE); PH URINE 6.5 (4.5-8.0); PROTEIN URINE 2+ (NEGATIVE); SPECIFIC GRAVITY URINE 1.007 (1.005-1.030); UROBILINOGEN URINE 0.2 E.U./dL (0.2-1.0)
[2019-04-10] MEDS ORDERED: NITROGLYCERIN OINT 1GM/INCH UDPKT TD ONE (23:00)
[2019-04-10 23:02] LABS: *AMPHETAMINES SCREEN URINE NEGATIVE (NEGATIVE); *BARBITURATES SCREEN URINE NEGATIVE (NEGATIVE); *BENZODIAZEPINES SCREEN URINE NEGATIVE (NEGATIVE); *COCAINE SCREEN URINE PRESUMTIVE POSITIVE (NEGATIVE); METHADONE URINE SCREEN NEGATIVE (NEGATIVE); OPIATES URINE SCREEN NEGATIVE (NEGATIVE)
[2019-04-10 23:04] LABS: CANNABINOID URINE SCREEN NEGATIVE (NEGATIVE); PHENCYCLIDINE URINE SCREEN NEGATIVE (NEGATIVE)
[2019-04-10 23:22] LABS: BASOPHILS % 1.1 % (0.0-2.0); HEMATOCRIT. 29.6 % (42.0-52.0); HEMOGLOBIN. 9.8 g/dL (14.0-18.0); LYMPHOCYTES % 17.6 % (20.0-50.0); MEAN CORPUSCULAR HEMOGLOBIN 33.5 pg (28.0-32.0); MEAN CORPUSCULAR VOLUME 101.2 fL (80.0-94.0); MEAN PLATELET VOLUME 8.6 fl (7.4-10.4); MONOCYTES % 9.5 % (2.0-8.0); NEUTROPHILS % 70.8 % (40.0-76.0); PLATELET 149 x1000/uL (130-400); RED BLOOD CELL COUNT 2.93 mill/uL (4.7-6.1); RED CELL DISTRIBUTION WIDTH 16.8 % (11.6-14.6)
[2019-04-10 23:24] LABS: CHLORIDE 105 mEq/L (98-107)
[2019-04-10 23:29] LABS: ETHANOL BLOOD 11 mg/dL; INR 0.9; PARTIAL THROMBOPLASTIN TIME 27.8 sec (23.4-31.0); PROTHROMBIN TIME 9.8 sec (9.6-11.0)
[2019-04-10 23:33] LABS: CREATINE KINASE 530 IU/L (39-308)
[2019-04-10 23:36] LABS: CREATINE KINASE MB FRACTION 3.4 ng/mL (0.5-3.6)
[2019-04-10] MEDS ORDERED: LORAZEPAM 2MG/ML CPJ IV ONE (23:45)
[2019-04-11] VITALS (9 sets, daily range): BP systolic 140–164; BP diastolic 79–103
[2019-04-11] MEDS ORDERED: EPOETIN ALFA 10000UNITS/ML VIAL SUBCUT SCH (02:30)
[2019-04-11 09:14] LABS: BASOPHILS % 1.3 % (0.0-2.0); EOSINOPHILS % 1.8 % (0.0-5.0); HEMATOCRIT. 28.1 % (42.0-52.0); HEMOGLOBIN. 9.2 g/dL (14.0-18.0); LYMPHOCYTES % 21.2 % (20.0-50.0); MEAN CORPUSCULAR HEMOGLOBIN 33.5 pg (28.0-32.0); MEAN CORPUSCULAR VOLUME 101.8 fL (80.0-94.0); MEAN PLATELET VOLUME 8.8 fl (7.4-10.4); MONOCYTES % 13.2 % (2.0-8.0); NEUTROPHILS % 62.5 % (40.0-76.0); PLATELET 143 x1000/uL (130-400); RED BLOOD CELL COUNT 2.76 mill/uL (4.7-6.1); RED CELL DISTRIBUTION WIDTH 16.6 % (11.6-14.6)
[2019-04-11] MEDS: CLONIDINE 0.1MG TABLET PO PRN ×2 (09:41→22:31)
[2019-04-11] MEDS ORDERED: DIPHENHYDRAMINE 25MG CAPSULE PO PRN (12:15)
[2019-04-11] MEDS ORDERED: GUAIFENESIN-DM 200MG-20MG/10ML UDC PO PRN (12:15)
[2019-04-11] MEDS: HYDROCODONE/ACETAMINOPHEN 5/325MG TABLET PO PRN ×2 (12:33→22:31)
[2019-04-11] MEDS ORDERED: PHENOL/SODIUM PHENOLATE 1.4% SRPAY 177ML MM NR (14:00)
[2019-04-11] MEDS: DIPHENHYDRAMINE 50MG/ML VIAL IV PRN (20:06)
[2019-04-12] MEDS ORDERED: EPOETIN ALFA 4000UNITS/ML VIAL SUBCUT ONE
[2019-04-12] MEDS ORDERED: EPOETIN ALFA 10000UNITS/ML VIAL SUBCUT NR (01:00)
[2019-04-12] MEDS ORDERED: GABAPENTIN 300MG CAPSULE PO SCH (02:00)
[2019-04-12] MEDS: DIPHENHYDRAMINE 50MG/ML VIAL IV PRN ×2 (02:03→09:12)
[2019-04-12 04:00] VITALS: BP 130/82
[2019-04-12] MEDS ORDERED: IRON SUCROSE COMPLEX 100 MG/5 ML ML IV SCH (06:00)
[2019-04-12 08:00] VITALS: BP 141/87
[2019-04-12] MEDS ORDERED: FOLIC ACID/VITAMIN B COMP W-C TABLET PO SCH (09:00)
[2019-04-12] MEDS: SEVELAMER CARBONATE 800 MG TABLET PO SCH ×2 (09:07→13:32)
[2019-04-12] MEDS: HYDROCODONE/ACETAMINOPHEN 5/325MG TABLET PO PRN (09:12)
[2019-04-12 12:00] VITALS: BP 138/79
[2019-04-12] MEDS ORDERED: PHENOL/SODIUM PHENOLATE 1.4% SRPAY 177ML MM PRN (12:00)
[2019-04-12] MEDS ORDERED: PHENOL/SODIUM PHENOLATE 1.4% SRPAY 177ML MM NR (12:00)
[2019-04-12 16:00] VITALS: BP 135/86
[2019-04-12 16:58] VITALS: BP 135/86
[2019-04-12 18:21] LABS: HEMATOCRIT. 32.9 % (42.0-52.0); HEMOGLOBIN. 10.8 g/dL (14.0-18.0); MEAN CORPUSCULAR HEMOGLOBIN 33.1 pg (28.0-32.0); MEAN CORPUSCULAR VOLUME 100.6 fL (80.0-94.0); MEAN PLATELET VOLUME 9.8 fl (7.4-10.4); PLATELET 139 x1000/uL (130-400); RED BLOOD CELL COUNT 3.27 mill/uL (4.7-6.1); RED CELL DISTRIBUTION WIDTH 16.5 % (11.6-14.6)
[2019-04-12] MEDS ORDERED: EPOETIN ALFA 4000UNITS/ML VIAL SUBCUT NR (21:00)
[2019-04-12 22:37] LABS: PLATELET ESTIMATE NORMAL
== END 2019-04-12 19:05 | disposition home or self-care (01) | DRG 194 ==
LOC: ER 18:23 → 7WST 23:51 → EDBEDREQTM 23:58 → EDBEDREQ 23:58 → ENRESERV 04-11 02:03
PROVIDERS: ADMIT Internal Medicine; ATTEND Internal Medicine
PROC: 5A1D70Z Performance of Urinary Filtration, Intermittent, Less than 6 Hours Per Day (ICD-10-PCS; principal; 2019-04-11)
PROC: 5A1D70Z Performance of Urinary Filtration, Intermittent, Less than 6 Hours Per Day (ICD-10-PCS; 2019-04-12)
DX: I13.2 Hypertensive heart and chronic kidney disease with heart failure and with stage 5 chronic kidney disease, or end stage renal disease (principal); N18.6 End stage renal disease; E46 Unspecified protein-calorie malnutrition; E88.09 Other disorders of plasma-protein metabolism, not elsewhere classified; E87.70 Fluid overload, unspecified; D50.9 Iron deficiency anemia, unspecified; F14.10 Cocaine abuse, uncomplicated; H54.8 Legal blindness, as defined in USA; M19.90 Unspecified osteoarthritis, unspecified site; J06.9 Acute upper respiratory infection, unspecified; I50.9 Heart failure, unspecified; J44.9 Chronic obstructive pulmonary disease, unspecified; Z91.15 Patient's noncompliance with renal dialysis; Z99.2 Dependence on renal dialysis; Z91.19 Patient's noncompliance with other medical treatment and regimen; Z68.27 Body mass index [BMI] 27.0-27.9, adult
CPT/HCPCS: 36415; 71045; 80048; 80061; 80305; 80320; 81003; 82550; 82553; 83880; 84443; 84484; 87804; 93005; 93970; 94640; 99285; J0885; J1200; J1940; J2060; J2270; J2405; J7620; Q0163; G0480

== ENCOUNTER 2019-05-03 11:39 | Inpatient (IN) | payer MEDICAID ==
[~2019-05-03] VITALS: Ht 180.3 cm; Wt 85.3 kg
[2019-05-03 12:23] LABS: BASOPHILS % 0.4 % (0.0-2.0); HEMATOCRIT. 31.8 % (42.0-52.0); HEMOGLOBIN. 10.6 g/dL (14.0-18.0); LYMPHOCYTES % 10.6 % (20.0-50.0); MEAN CORPUSCULAR HEMOGLOBIN 34.2 pg (28.0-32.0); MEAN PLATELET VOLUME 9.9 fl (7.4-10.4); MONOCYTES % 9.8 % (2.0-8.0); NEUTROPHILS % 78.2 % (40.0-76.0); PLATELET 220 x1000/uL (130-400); RED BLOOD CELL COUNT 3.11 mill/uL (4.7-6.1); RED CELL DISTRIBUTION WIDTH 15.8 % (11.6-14.6)
[2019-05-03 12:28] LABS: CHLORIDE 104 mEq/L (98-107)
[2019-05-03 12:33] LABS: PROTHROMBIN TIME 10.1 sec (9.6-11.0)
[2019-05-03] MEDS ORDERED: CEFAZOLIN 1000MG PREMIX 50 ML IV ONE (14:00)
[2019-05-03] MEDS ORDERED: ALTEPLASE 2MG/VIAL ITC NR (14:30)
[2019-05-03] MEDS ORDERED: DOCUSATE SODIUM 100MG CAPSULE PO PRN (14:45)
[2019-05-03] MEDS ORDERED: CLONIDINE 0.1MG TABLET PO PRN (14:45)
[2019-05-03] MEDS ORDERED: ONDANSETRON HCL 4MG/2ML INJ IV PRN (14:45)
[2019-05-03] MEDS ORDERED: SODIUM BICARBONATE 4% (2.4MEQ) 5ML VIAL IV ONE (14:57)
[2019-05-03] MEDS ORDERED: LIDOCAINE HCL 1% 20ML VIAL (Pyxis) INJ ONE (14:57)
[2019-05-03 17:18] LABS: PHOSPHORUS 6.5 mg/dL (2.5-4.9)
[2019-05-03 17:40] VITALS: BP 116/82
[2019-05-03] MEDS ORDERED: DEXTROSE 50% WATER 50ML SYRINGE IV PRN (18:45)
[2019-05-03 20:00] VITALS: BP 117/69
[2019-05-03] MEDS ORDERED: INFLUENZA VIRUS VACCINE(AFLURIA) 0.5ML SYR IM ONE (20:30)
[2019-05-03] MEDS: INSULIN LISPRO 100 UNITS/ML SUBCUT SCH (21:00)
[2019-05-03] MEDS: BLOOD SUGAR DIAGNOSTIC STRIP TEST SCH (21:00)
[2019-05-03] MEDS: DIPHENHYDRAMINE 50MG/ML VIAL IV PRN (22:57)
[2019-05-03] MEDS: ACETAMINOPHEN 325MG TABLET PO PRN (23:06)
[2019-05-03] MEDS: GUAIFENESIN 200MG/10ML SUGAR FREE UDC PO PRN (23:13)
[2019-05-04] VITALS: BP 123/76
[2019-05-04 00:49] LABS: CREATINE KINASE MB FRACTION 1.1 ng/mL (0.5-3.6)
[2019-05-04 04:00] VITALS: BP 125/79
[2019-05-04] MEDS: HYDROCODONE/ACETAMINOPHEN 5/325MG TABLET PO PRN ×3 (05:05→22:34)
[2019-05-04] MEDS: GUAIFENESIN 200MG/10ML SUGAR FREE UDC PO PRN ×3 (05:11→18:58)
[2019-05-04] MEDS: IPRATROPIUM/ALBUTEROL 0.5-3(2.5)MG/3ML NEB HHN PRN (05:39)
[2019-05-04 07:17] LABS: BASOPHILS % 1.1 % (0.0-2.0); EOSINOPHILS % 1.5 % (0.0-5.0); HEMATOCRIT. 32.3 % (42.0-52.0); HEMOGLOBIN. 10.5 g/dL (14.0-18.0); LYMPHOCYTES % 21.8 % (20.0-50.0); MEAN CORPUSCULAR HEMOGLOBIN 33.9 pg (28.0-32.0); MEAN CORPUSCULAR VOLUME 103.9 fL (80.0-94.0); MEAN PLATELET VOLUME 9.6 fl (7.4-10.4); MONOCYTES % 11.6 % (2.0-8.0); PLATELET 187 x1000/uL (130-400); RED BLOOD CELL COUNT 3.11 mill/uL (4.7-6.1); RED CELL DISTRIBUTION WIDTH 15.9 % (11.6-14.6)
[2019-05-04] MEDS: BLOOD SUGAR DIAGNOSTIC STRIP TEST SCH ×2 (07:25→11:58)
[2019-05-04] MEDS: INSULIN LISPRO 100 UNITS/ML SUBCUT SCH ×2 (07:26→11:58)
[2019-05-04 07:33] LABS: CHLORIDE 105 mEq/L (98-107)
[2019-05-04 07:49] LABS: CREATINE KINASE 276 IU/L (39-308)
[2019-05-04 07:53] LABS: CREATINE KINASE MB FRACTION < 1.0 ng/mL (0.5-3.6)
[2019-05-04 08:00] VITALS: BP 137/94
[2019-05-04] MEDS: DIPHENHYDRAMINE 50MG/ML VIAL IV PRN ×3 (08:32→22:34)
[2019-05-04] MEDS ORDERED: CALC667T2 MT (09:26)
[2019-05-04 12:00] VITALS: BP 151/91
[2019-05-04] MEDS: METOPROLOL TARTRATE 50MG TABLET PO SCH ×2 (15:00→20:21)
[2019-05-04] MEDS ORDERED: CALCIUM ACETATE 667MG CAPSULE PO NR (15:00)
[2019-05-04 16:00] VITALS: BP 134/76
[2019-05-04] MEDS: ENOXAPARIN 30MG/0.3ML SYR SUBCUT SCH (16:01)
[2019-05-04] MEDS: IRON SUCROSE COMPLEX 100 MG/5 ML ML IV SCH (17:29)
[2019-05-04] MEDS ORDERED: CALCIUM ACETATE 667MG CAPSULE PO SCH (17:50)
[2019-05-04] MEDS: ACETAMINOPHEN 325MG TABLET PO PRN (20:21)
[2019-05-04 20:33] VITALS: BP 147/88
[2019-05-05 00:02] VITALS: BP 132/79
[2019-05-05 04:00] VITALS: BP 134/80
[2019-05-05] MEDS: DIPHENHYDRAMINE 50MG/ML VIAL IV PRN ×4 (04:50→22:26)
[2019-05-05] MEDS: HYDROCODONE/ACETAMINOPHEN 5/325MG TABLET PO PRN ×3 (04:52→17:52)
[2019-05-05 08:00] VITALS: BP 165/109
[2019-05-05] MEDS: CALCIUM ACETATE 667MG CAPSULE PO SCH ×3 (08:25→17:51)
[2019-05-05] MEDS: METOPROLOL TARTRATE 50MG TABLET PO SCH ×2 (08:25→20:42)
[2019-05-05] MEDS: IRON SUCROSE COMPLEX 100 MG/5 ML ML IV SCH (08:25)
[2019-05-05] MEDS: GUAIFENESIN 200MG/10ML SUGAR FREE UDC PO PRN ×3 (11:08→22:26)
[2019-05-05 12:00] VITALS: BP 158/94
[2019-05-05 16:00] VITALS: BP 148/76
[2019-05-05 20:01] VITALS: BP 129/76
[2019-05-05] MEDS: GABAPENTIN 100MG CAPSULE PO SCH (20:43)
[2019-05-05] MEDS: BENAZEPRIL 10MG TABLET PO SCH (20:43)
[2019-05-05] MEDS ORDERED: EPOETIN ALFA 10000UNITS/ML VIAL SUBCUT SCH (21:00)
[2019-05-05] MEDS: IPRATROPIUM/ALBUTEROL 0.5-3(2.5)MG/3ML NEB HHN PRN (21:14)
[2019-05-06 00:08] VITALS: BP 135/79
[2019-05-06] MEDS: IPRATROPIUM/ALBUTEROL 0.5-3(2.5)MG/3ML NEB HHN PRN ×4 (00:29→21:40)
[2019-05-06] MEDS: HYDROCODONE/ACETAMINOPHEN 5/325MG TABLET PO PRN ×4 (00:39→20:54)
[2019-05-06 04:00] VITALS: BP 122/85
[2019-05-06] MEDS: GUAIFENESIN 200MG/10ML SUGAR FREE UDC PO PRN ×3 (05:06→21:30)
[2019-05-06] MEDS: DIPHENHYDRAMINE 50MG/ML VIAL IV PRN ×4 (05:07→20:53)
[2019-05-06 06:50] LABS: EOSINOPHILS % 4.2 % (0.0-5.0); HEMOGLOBIN. 10.8 g/dL (14.0-18.0); LYMPHOCYTES % 29.7 % (20.0-50.0); MEAN CORPUSCULAR HEMOGLOBIN 33.3 pg (28.0-32.0); MEAN CORPUSCULAR VOLUME 104.5 fL (80.0-94.0); MEAN PLATELET VOLUME 9.7 fl (7.4-10.4); MONOCYTES % 14.5 % (2.0-8.0); NEUTROPHILS % 50.6 % (40.0-76.0); PLATELET 165 x1000/uL (130-400); RED BLOOD CELL COUNT 3.25 mill/uL (4.7-6.1); RED CELL DISTRIBUTION WIDTH 15.9 % (11.6-14.6)
[2019-05-06 08:00] VITALS: BP 146/78
[2019-05-06] MEDS: BENAZEPRIL 10MG TABLET PO SCH ×2 (08:28→21:00)
[2019-05-06] MEDS: METOPROLOL TARTRATE 50MG TABLET PO SCH ×2 (08:28→21:00)
[2019-05-06] MEDS ORDERED: CEFAZOLIN 1000MG PREMIX 50 ML IV ONE (08:30)
[2019-05-06] MEDS: CALCIUM ACETATE 667MG CAPSULE PO SCH ×3 (09:41→18:18)
[2019-05-06] MEDS: IRON SUCROSE COMPLEX 100 MG/5 ML ML IV SCH (09:42)
[2019-05-06 12:00] VITALS: BP 140/88
[2019-05-06 16:00] VITALS: BP 153/100
[2019-05-06] MEDS: MAGNESIUM/ALUMINUM HYDROXIDE/SIMETHICONE 30ML UDC PO PRN (18:11)
[2019-05-06 20:49] VITALS: BP 144/92
[2019-05-06] MEDS: GABAPENTIN 100MG CAPSULE PO SCH (20:54)
[2019-05-06] MEDS: PHENOL/SODIUM PHENOLATE 1.4% SRPAY 177ML MM PRN (21:30)
[2019-05-07] VITALS (24 sets, daily range): BP systolic 115–168; BP diastolic 74–107
[2019-05-07] MEDS ORDERED: HEPARIN SODIUM 1,000 UNIT/1ML VIAL IV SCH (02:45)
[2019-05-07] MEDS: ACETAMINOPHEN 325MG TABLET PO PRN (02:52)
[2019-05-07 06:19] LABS: HEMATOCRIT. 31.9 % (42.0-52.0); HEMOGLOBIN. 10.5 g/dL (14.0-18.0); MEAN CORPUSCULAR HEMOGLOBIN 33.7 pg (28.0-32.0); MEAN CORPUSCULAR VOLUME 102.1 fL (80.0-94.0); MEAN PLATELET VOLUME 9.7 fl (7.4-10.4); PLATELET 133 x1000/uL (130-400); RED BLOOD CELL COUNT 3.12 mill/uL (4.7-6.1); RED CELL DISTRIBUTION WIDTH 15.5 % (11.6-14.6)
[2019-05-07] MEDS: CALCIUM ACETATE 667MG CAPSULE PO SCH ×3 (07:50→17:50)
[2019-05-07] MEDS: IPRATROPIUM/ALBUTEROL 0.5-3(2.5)MG/3ML NEB HHN PRN ×2 (07:58→22:26)
[2019-05-07] MEDS ORDERED: CEFAZOLIN 1000MG PREMIX 50 ML IV NR (08:22)
[2019-05-07] MEDS ORDERED: SODIUM BICARBONATE 4% (2.4MEQ) 5ML VIAL IV ONE (08:39)
[2019-05-07] MEDS ORDERED: IOHEXOL-300 100 ML BOTTLE ONE (08:39)
[2019-05-07] MEDS ORDERED: HEPARIN 1000 UNITS/ML 10ML ONE (08:40)
[2019-05-07] MEDS ORDERED: LIDOCAINE HCL 1% 20ML VIAL (Pyxis) INJ ONE (08:40)
[2019-05-07] MEDS ORDERED: FENTANYL CITRATE/PF 50MCG/ML 2ML VIAL ONE (08:42)
[2019-05-07] MEDS ORDERED: CEFAZOLIN 1000MG PREMIX 50 ML IV ONE (08:42)
[2019-05-07] MEDS ORDERED: HEPARIN 5000 UNITS/ML VIAL IV NR (10:00)
[2019-05-07] MEDS ORDERED: FENTANYL CITRATE/PF 50MCG/ML 2ML VIAL IV ONE (10:30)
[2019-05-07] MEDS: DIPHENHYDRAMINE 50MG/ML VIAL IV PRN ×2 (11:34→18:37)
[2019-05-07] MEDS: BENAZEPRIL 10MG TABLET PO SCH ×2 (11:35→21:20)
[2019-05-07] MEDS: FAMOTIDINE 20MG TABLET PO SCH (11:35)
[2019-05-07] MEDS: METOPROLOL TARTRATE 50MG TABLET PO SCH ×2 (11:35→21:19)
[2019-05-07] MEDS: HYDROCODONE/ACETAMINOPHEN 5/325MG TABLET PO PRN ×2 (11:36→18:38)
[2019-05-07] MEDS: GUAIFENESIN 200MG/10ML SUGAR FREE UDC PO PRN ×2 (12:27→21:22)
[2019-05-07 17:32] LABS: PLATELET ESTIMATE NORMAL
[2019-05-07] MEDS: GABAPENTIN 100MG CAPSULE PO SCH (21:19)
[2019-05-07] MEDS: PHENOL/SODIUM PHENOLATE 1.4% SRPAY 177ML MM PRN (21:21)
[2019-05-07] MEDS: MAGNESIUM/ALUMINUM HYDROXIDE/SIMETHICONE 30ML UDC PO PRN (21:21)
[2019-05-08 00:09] VITALS: BP 121/77
[2019-05-08] MEDS: IPRATROPIUM/ALBUTEROL 0.5-3(2.5)MG/3ML NEB HHN PRN ×4 (00:47→21:27)
[2019-05-08] MEDS: DIPHENHYDRAMINE 50MG/ML VIAL IV PRN ×4 (00:48→18:20)
[2019-05-08] MEDS: HYDROCODONE/ACETAMINOPHEN 5/325MG TABLET PO PRN ×3 (00:48→21:36)
[2019-05-08 04:24] VITALS: BP 126/78
[2019-05-08] MEDS: GUAIFENESIN 200MG/10ML SUGAR FREE UDC PO PRN (06:48)
[2019-05-08 08:00] VITALS: BP 133/86
[2019-05-08] MEDS: METOPROLOL TARTRATE 50MG TABLET PO SCH ×2 (09:21→21:21)
[2019-05-08] MEDS: CALCIUM ACETATE 667MG CAPSULE PO SCH ×3 (09:21→18:15)
[2019-05-08] MEDS: FAMOTIDINE 20MG TABLET PO SCH (09:22)
[2019-05-08] MEDS: BENAZEPRIL 10MG TABLET PO SCH ×2 (09:22→21:20)
[2019-05-08 11:12] LABS: EOSINOPHILS % 2.8 % (0.0-5.0); HEMOGLOBIN. 11.2 g/dL (14.0-18.0); LYMPHOCYTES % 15.7 % (20.0-50.0); MEAN CORPUSCULAR HEMOGLOBIN 34.1 pg (28.0-32.0); MEAN CORPUSCULAR VOLUME 103.5 fL (80.0-94.0); MEAN PLATELET VOLUME 9.4 fl (7.4-10.4); MONOCYTES % 12.6 % (2.0-8.0); NEUTROPHILS % 67.9 % (40.0-76.0); PLATELET 130 x1000/uL (130-400); RED BLOOD CELL COUNT 3.29 mill/uL (4.7-6.1); RED CELL DISTRIBUTION WIDTH 15.6 % (11.6-14.6)
[2019-05-08] MEDS: ACETAMINOPHEN 325MG TABLET PO PRN (11:19)
[2019-05-08 12:00] VITALS: BP 143/82
[2019-05-08] MEDS: ENOXAPARIN 30MG/0.3ML SYR SUBCUT SCH (14:57)
[2019-05-08 16:00] VITALS: BP 126/67
[2019-05-08] MEDS ORDERED: HYDR-4005 MT (18:48)
[2019-05-08 20:00] VITALS: BP 129/82
[2019-05-08] MEDS ORDERED: EPOETIN ALFA 4000UNITS/ML VIAL SUBCUT NR (21:00)
[2019-05-08] MEDS: GABAPENTIN 100MG CAPSULE PO SCH (21:20)
[2019-05-09] VITALS: BP 114/80
[2019-05-09] MEDS: IPRATROPIUM/ALBUTEROL 0.5-3(2.5)MG/3ML NEB HHN PRN (01:49)
[2019-05-09] MEDS: DIPHENHYDRAMINE 50MG/ML VIAL IV PRN ×2 (02:06→08:21)
[2019-05-09] MEDS: GUAIFENESIN 200MG/10ML SUGAR FREE UDC PO PRN (02:11)
[2019-05-09 04:34] VITALS: BP 123/70
[2019-05-09] MEDS: ACETAMINOPHEN 325MG TABLET PO PRN (08:20)
[2019-05-09] MEDS: METOPROLOL TARTRATE 50MG TABLET PO SCH (08:20)
[2019-05-09] MEDS: BENAZEPRIL 10MG TABLET PO SCH (08:21)
[2019-05-09] MEDS: FAMOTIDINE 20MG TABLET PO SCH (08:21)
[2019-05-09] MEDS: CALCIUM ACETATE 667MG CAPSULE PO SCH (08:24)
[2019-05-09 08:55] VITALS: BP 131/80
[2019-05-09 09:19] VITALS: BP 132/70
== END 2019-05-09 13:51 | disposition home or self-care (01) | DRG 182 ==
LOC: ER 11:39 → EDBEDREQ 11:54 → 6WST 14:36 → EDBEDREQ 14:38 → ENRESERV 15:23
PROVIDERS: ADMIT Internal Medicine; ATTEND Internal Medicine
PROC: 02HV33Z Insertion of Infusion Device into Superior Vena Cava, Percutaneous Approach (ICD-10-PCS; principal; 2019-05-03)
PROC: B548ZZA Ultrasonography of Superior Vena Cava, Guidance (ICD-10-PCS; 2019-05-03)
PROC: 5A1D70Z Performance of Urinary Filtration, Intermittent, Less than 6 Hours Per Day (ICD-10-PCS; 2019-05-04)
PROC: 5A1D70Z Performance of Urinary Filtration, Intermittent, Less than 6 Hours Per Day (ICD-10-PCS; 2019-05-06)
PROC: 03CY3ZZ Extirpation of Matter from Upper Artery, Percutaneous Approach (ICD-10-PCS; 2019-05-07)
PROC: 05CY3ZZ Extirpation of Matter from Upper Vein, Percutaneous Approach (ICD-10-PCS; 2019-05-07)
PROC: B51W1ZZ Fluoroscopy of Dialysis Shunt/Fistula using Low Osmolar Contrast (ICD-10-PCS; 2019-05-07)
PROC: B5181ZZ Fluoroscopy of Superior Vena Cava using Low Osmolar Contrast (ICD-10-PCS; 2019-05-07)
PROC: B3111ZZ Fluoroscopy of Right Brachiocephalic-Subclavian Artery using Low Osmolar Contrast (ICD-10-PCS; 2019-05-07)
PROC: 03WY0JZ Revision of Synthetic Substitute in Upper Artery, Open Approach (ICD-10-PCS; 2019-05-07)
PROC: 05WY0JZ Revision of Synthetic Substitute in Upper Vein, Open Approach (ICD-10-PCS; 2019-05-07)
PROC: 5A1D70Z Performance of Urinary Filtration, Intermittent, Less than 6 Hours Per Day (ICD-10-PCS; 2019-05-08)
DX: T82.818A Embolism due to vascular prosthetic devices, implants and grafts, initial encounter (principal); I13.2 Hypertensive heart and chronic kidney disease with heart failure and with stage 5 chronic kidney disease, or end stage renal disease; E83.39 Other disorders of phosphorus metabolism; E83.51 Hypocalcemia; N18.6 End stage renal disease; D63.8 Anemia in other chronic diseases classified elsewhere; M19.90 Unspecified osteoarthritis, unspecified site; F31.9 Bipolar disorder, unspecified; J44.9 Chronic obstructive pulmonary disease, unspecified; F14.90 Cocaine use, unspecified, uncomplicated; Y82.8 Other medical devices associated with adverse incidents; I50.9 Heart failure, unspecified; E87.70 Fluid overload, unspecified; J38.2 Nodules of vocal cords; Z99.2 Dependence on renal dialysis; Z82.49 Family history of ischemic heart disease and other diseases of the circulatory system; Z79.899 Other long term (current) drug therapy; Z83.3 Family history of diabetes mellitus; Y92.89 Other specified places as the place of occurrence of the external cause
CPT/HCPCS: 36415; 36906; 70490; 70540; 71045; 76937; 77001; 80048; 82550; 82553; 82962; 83735; 84100; 84484; 87070; 87430; 90686; 93005; 93970; 94640; 97116; 97162; 99152; 99153; 99285; C1725; C1752; C1766; C1769; C2630; J0690; J1200; J1642; J1644; J1650; J2997; J3010; J3490; J7620; Q9967; G0500

== ENCOUNTER 2019-06-28 19:57 | Inpatient (IN) | payer MEDICAID ==
[~2019-06-28] VITALS: Ht 180.3 cm; Wt 89.8 kg
[~2019-06-28 19:57] MED LIST changes: +CALC667T2 MT; +HYDR-4001 MT; +HYDR-4005 MT
[2019-06-28] MEDS ORDERED: DIPHENHYDRAMINE 50MG/ML VIAL IV ONE (23:45)
[2019-06-28] MEDS ORDERED: ASPIRIN 81MG TABLET PO ONE (23:45)
[2019-06-29] MEDS ORDERED: ONDANSETRON HCL 4MG/2ML INJ IV STA (00:24)
[2019-06-29] MEDS ORDERED: MORPHINE SULFATE 4 MG/ML CPJ (NOT FOR IM USE) IV STA (00:24)
[2019-06-29 00:27] LABS: BASOPHILS % 0.2 % (0.0-2.0); EOSINOPHILS % 2.8 % (0.0-5.0); HEMATOCRIT. 31.8 % (42.0-52.0); HEMOGLOBIN. 10.6 g/dL (14.0-18.0); LYMPHOCYTES % 23.7 % (20.0-50.0); MEAN CORPUSCULAR HEMOGLOBIN 33.7 pg (28.0-32.0); MEAN CORPUSCULAR VOLUME 101.1 fL (80.0-94.0); MEAN PLATELET VOLUME 8.4 fl (7.4-10.4); MONOCYTES % 12.8 % (2.0-8.0); NEUTROPHILS % 60.5 % (40.0-76.0); PLATELET 216 x1000/uL (130-400); RED BLOOD CELL COUNT 3.14 mill/uL (4.7-6.1); RED CELL DISTRIBUTION WIDTH 14.9 % (11.6-14.6)
[2019-06-29 00:33] LABS: CHLORIDE 97 mEq/L (98-107)
[2019-06-29 03:50] VITALS: BP 142/78
[2019-06-29 04:00] VITALS: BP 142/84
[2019-06-29] MEDS ORDERED: ONDANSETRON HCL 4MG/2ML INJ IV PRN (05:30)
[2019-06-29] MEDS ORDERED: IPRATROPIUM/ALBUTEROL 0.5-3(2.5)MG/3ML NEB HHN PRN (05:30)
[2019-06-29] MEDS ORDERED: DIPHENHYDRAMINE 25MG CAPSULE PO PRN (05:30)
[2019-06-29] MEDS ORDERED: CLONIDINE 0.1MG TABLET PO PRN (05:30)
[2019-06-29 08:17] VITALS: BP 142/80
[2019-06-29] MEDS ORDERED: DIPHENHYDRAMINE 50MG/ML VIAL IM PRN (10:00)
[2019-06-29] MEDS ORDERED: HEPARIN SODIUM 1,000 UNIT/1ML VIAL IV NR (11:30)
[2019-06-29 12:10] VITALS: BP 132/76
[2019-06-29] MEDS: HYDROCODONE/ACETAMINOPHEN 5/325MG TABLET PO PRN ×2 (12:24→23:07)
[2019-06-29] MEDS: DIPHENHYDRAMINE 50MG/ML VIAL IV PRN ×3 (12:25→23:48)
[2019-06-29 15:58] VITALS: BP 137/80
[2019-06-29] MEDS ORDERED: CALCIUM ACETATE 667MG CAPSULE PO SCH (17:00)
[2019-06-29] MEDS: DOCUSATE SODIUM 100MG CAPSULE PO SCH (17:00)
[2019-06-29 18:05] LABS: HEMATOCRIT. 27.2 % (42.0-52.0); HEMOGLOBIN. 9.1 g/dL (14.0-18.0); MEAN CORPUSCULAR HEMOGLOBIN 33.6 pg (28.0-32.0); MEAN CORPUSCULAR VOLUME 100.8 fL (80.0-94.0); MEAN PLATELET VOLUME 9.1 fl (7.4-10.4); PLATELET 188 x1000/uL (130-400); RED CELL DISTRIBUTION WIDTH 14.8 % (11.6-14.6)
[2019-06-29 20:25] VITALS: BP 120/70
[2019-06-29] MEDS ORDERED: EPOETIN ALFA 4000UNITS/ML VIAL SUBCUT NR (21:00)
[2019-06-29] MEDS: LISINOPRIL 20MG TABLET PO SCH (21:00)
[2019-06-29 21:23] LABS: ATYPICAL LYMPHOCYTES 1; PLATELET ESTIMATE NORMAL
[2019-06-29] MEDS: IRON SUCROSE COMPLEX 100 MG/5 ML ML IV SCH (23:04)
[2019-06-30] VITALS (7 sets, daily range): BP systolic 111–138; BP diastolic 63–75
[2019-06-30] MEDS: OMEPRAZOLE 20MG CAPSULE EXTENDED RELEASE PO SCH (06:41)
[2019-06-30] MEDS: DIPHENHYDRAMINE 50MG/ML VIAL IV PRN ×2 (06:42→22:36)
[2019-06-30] MEDS: CALCIUM ACETATE 667MG CAPSULE PO SCH ×3 (07:50→19:59)
[2019-06-30] MEDS: ISOSORBIDE MONONITRATE 60MG TABLET SR 24HR PO SCH (09:00)
[2019-06-30] MEDS: DOCUSATE SODIUM 100MG CAPSULE PO SCH ×4 (09:00→17:00)
[2019-06-30] MEDS: ASPIRIN 81MG EC TABLET PO SCH (10:00)
[2019-06-30] MEDS: MAGNESIUM OXIDE 400MG TABLET PO SCH (10:00)
[2019-06-30] MEDS: FOLIC ACID/VITAMIN B COMP W-C TABLET PO SCH (10:01)
[2019-06-30] MEDS: DILTIAZEM HCL 180MG CAPSULE CD 24HR PO SCH (10:01)
[2019-06-30] MEDS: LISINOPRIL 20MG TABLET PO SCH ×2 (10:01→21:00)
[2019-06-30] MEDS ORDERED: HEPARIN SODIUM 1,000 UNIT/1ML VIAL IV NR ×2 (12:45)
[2019-06-30] MEDS: HYDROCODONE/ACETAMINOPHEN 5/325MG TABLET PO PRN (13:14)
[2019-06-30] MEDS ORDERED: CALCIUM GLUCONATE 1,000 MG in DEXT 5% WATER 90 ML IV SCH (16:00)
[2019-06-30 19:52] LABS: BASOPHILS % 1.1 % (0.0-2.0); EOSINOPHILS % 2.6 % (0.0-5.0); HEMATOCRIT. 27.5 % (42.0-52.0); HEMOGLOBIN. 9.1 g/dL (14.0-18.0); LYMPHOCYTES % 20.7 % (20.0-50.0); MEAN CORPUSCULAR HEMOGLOBIN 33.5 pg (28.0-32.0); MEAN CORPUSCULAR VOLUME 101.5 fL (80.0-94.0); MEAN PLATELET VOLUME 8.8 fl (7.4-10.4); MONOCYTES % 14.6 % (2.0-8.0); PLATELET 183 x1000/uL (130-400); RED BLOOD CELL COUNT 2.71 mill/uL (4.7-6.1); RED CELL DISTRIBUTION WIDTH 14.6 % (11.6-14.6)
[2019-06-30] MEDS ORDERED: EPOETIN ALFA 4000UNITS/ML VIAL SUBCUT NR (21:00)
[2019-07-01] VITALS: BP 118/62
[2019-07-01] MEDS: HYDROCODONE/ACETAMINOPHEN 5/325MG TABLET PO PRN ×2 (01:26→10:42)
[2019-07-01 04:00] VITALS: BP 124/73
[2019-07-01] MEDS: DIPHENHYDRAMINE 50MG/ML VIAL IV PRN ×2 (04:53→10:42)
[2019-07-01] MEDS: OMEPRAZOLE 20MG CAPSULE EXTENDED RELEASE PO SCH (06:37)
[2019-07-01] MEDS: CALCIUM ACETATE 667MG CAPSULE PO SCH (07:50)
[2019-07-01 08:00] VITALS: BP 125/77
[2019-07-01] MEDS ORDERED: EPOETIN ALFA 4000UNITS/ML VIAL SUBCUT ONE (09:00)
[2019-07-01] MEDS: DOCUSATE SODIUM 100MG CAPSULE PO SCH (09:00)
[2019-07-01] MEDS: IRON SUCROSE COMPLEX 100 MG/5 ML ML IV SCH ×2 (09:00→10:22)
[2019-07-01 09:45] LABS: BASOPHILS % 0.9 % (0.0-2.0); EOSINOPHILS % 2.6 % (0.0-5.0); HEMATOCRIT. 26.5 % (42.0-52.0); HEMOGLOBIN. 8.9 g/dL (14.0-18.0); LYMPHOCYTES % 19.3 % (20.0-50.0); MEAN CORPUSCULAR HEMOGLOBIN 34.1 pg (28.0-32.0); MEAN CORPUSCULAR VOLUME 101.5 fL (80.0-94.0); MEAN PLATELET VOLUME 9.1 fl (7.4-10.4); MONOCYTES % 14.8 % (2.0-8.0); NEUTROPHILS % 62.4 % (40.0-76.0); PLATELET 181 x1000/uL (130-400); RED BLOOD CELL COUNT 2.61 mill/uL (4.7-6.1); RED CELL DISTRIBUTION WIDTH 14.8 % (11.6-14.6)
[2019-07-01] MEDS: LISINOPRIL 20MG TABLET PO SCH (10:23)
[2019-07-01] MEDS: DILTIAZEM HCL 180MG CAPSULE CD 24HR PO SCH (10:23)
[2019-07-01] MEDS: MAGNESIUM OXIDE 400MG TABLET PO SCH (10:23)
[2019-07-01] MEDS: ASPIRIN 81MG EC TABLET PO SCH (10:24)
[2019-07-01] MEDS: FOLIC ACID/VITAMIN B COMP W-C TABLET PO SCH (10:24)
[2019-07-01] MEDS: ISOSORBIDE MONONITRATE 60MG TABLET SR 24HR PO SCH (10:24)
[2019-07-01] MEDS ORDERED: GUAIFENESIN-DM 200MG-20MG/10ML UDC PO PRN (11:45)
[2019-07-01 12:00] VITALS: BP 123/64
[2019-07-01] MEDS ORDERED: EPOETIN ALFA 4000UNITS/ML VIAL SUBCUT SCH (21:00)
== END 2019-07-01 13:43 | disposition left against medical advice (07) | DRG 425 ==
LOC: ER 19:57 → 6WST 06-29 01:05 → EDBEDREQ 06-29 01:10 → EDBEDREQTM 06-29 01:10 → ENRESERV 06-29 03:23 → 6WST 06-29 04:52
PROVIDERS: ADMIT Internal Medicine; ATTEND Internal Medicine
PROC: 5A1D70Z Performance of Urinary Filtration, Intermittent, Less than 6 Hours Per Day (ICD-10-PCS; principal; 2019-06-29)
PROC: 5A1D70Z Performance of Urinary Filtration, Intermittent, Less than 6 Hours Per Day (ICD-10-PCS; 2019-06-30)
PROC: 5A1D70Z Performance of Urinary Filtration, Intermittent, Less than 6 Hours Per Day (ICD-10-PCS; 2019-07-01)
DX: E87.70 Fluid overload, unspecified (principal); J96.00 Acute respiratory failure, unspecified whether with hypoxia or hypercapnia; I13.2 Hypertensive heart and chronic kidney disease with heart failure and with stage 5 chronic kidney disease, or end stage renal disease; N18.6 End stage renal disease; E83.51 Hypocalcemia; J44.9 Chronic obstructive pulmonary disease, unspecified; M19.90 Unspecified osteoarthritis, unspecified site; D63.8 Anemia in other chronic diseases classified elsewhere; F17.210 Nicotine dependence, cigarettes, uncomplicated; F10.10 Alcohol abuse, uncomplicated; Z53.29 Procedure and treatment not carried out because of patient's decision for other reasons; F14.90 Cocaine use, unspecified, uncomplicated; I50.9 Heart failure, unspecified; F12.90 Cannabis use, unspecified, uncomplicated; H54.8 Legal blindness, as defined in USA; Z91.19 Patient's noncompliance with other medical treatment and regimen; Z79.899 Other long term (current) drug therapy; Z99.2 Dependence on renal dialysis; Z71.51 Drug abuse counseling and surveillance of drug abuser; Z71.41 Alcohol abuse counseling and surveillance of alcoholic; Z71.6 Tobacco abuse counseling
CPT/HCPCS: 36415; 70490; 71045; 71250; 80048; 80053; 83880; 84484; 85025; 93005; 96374; 99285; J0610; J0885; J1200; J2270; J2405; J7060; Q0163

== ENCOUNTER 2019-08-19 14:29 | Inpatient (IN) | payer MEDICAID ==
[~2019-08-19] VITALS: Ht 185.4 cm; Wt 89.8 kg
[~2019-08-19 14:29] MED LIST changes: -CALC667T2 MT; +CALC667T2 PO; -HYDR-4001 MT
[2019-08-19] MEDS ORDERED: ASPIRIN 81MG TABLET PO ONE (15:45)
[2019-08-19] MEDS ORDERED: NITROGLYCERIN 0.4MG TABLET SL SL PRN (15:45)
[2019-08-19] MEDS ORDERED: DIPHENHYDRAMINE 50MG CAPSULE PO ONE (16:30)
[2019-08-19 17:31] LABS: BASOPHILS % 0.5 % (0.0-2.0); EOSINOPHILS % 0.6 % (0.0-5.0); HEMATOCRIT. 29.4 % (42.0-52.0); HEMOGLOBIN. 9.9 g/dL (14.0-18.0); LYMPHOCYTES % 8.6 % (20.0-50.0); MEAN CORPUSCULAR HEMOGLOBIN 33.3 pg (28.0-32.0); MEAN CORPUSCULAR VOLUME 98.7 fL (80.0-94.0); MEAN PLATELET VOLUME 9.1 fl (7.4-10.4); MONOCYTES % 11.4 % (2.0-8.0); NEUTROPHILS % 78.9 % (40.0-76.0); PLATELET 171 x1000/uL (130-400); RED BLOOD CELL COUNT 2.98 mill/uL (4.7-6.1); RED CELL DISTRIBUTION WIDTH 15.2 % (11.6-14.6)
[2019-08-19 17:35] LABS: CHLORIDE 100 mEq/L (98-107)
[2019-08-20] VITALS (7 sets, daily range): BP systolic 130–166; BP diastolic 73–103
[2019-08-20] MEDS: HYDROCODONE/ACETAMINOPHEN 5/325MG TABLET PO PRN ×4 (00:05→21:20)
[2019-08-20] MEDS ORDERED: APIX5TAB PO (01:31)
[2019-08-20] MEDS ORDERED: ATOR-2 PO (01:31)
[2019-08-20] MEDS ORDERED: DIPH25TA23 PO (01:31)
[2019-08-20] MEDS ORDERED: NEPVIT PO (01:33)
[2019-08-20] MEDS ORDERED: TOPUD PO (01:33)
[2019-08-20] MEDS ORDERED: COR12 PO (01:33)
[2019-08-20] MEDS ORDERED: HYDR-4005 PO (01:58)
[2019-08-20] MEDS ORDERED: IPRATROPIUM/ALBUTEROL 0.5-3(2.5)MG/3ML NEB HHN PRN (02:00)
[2019-08-20] MEDS ORDERED: ACETAMINOPHEN 325MG TABLET PO PRN (02:15)
[2019-08-20] MEDS ORDERED: CLONIDINE 0.1MG TABLET PO PRN (02:15)
[2019-08-20] MEDS: DIPHENHYDRAMINE 50MG/ML VIAL IV PRN ×3 (02:46→18:21)
[2019-08-20 06:08] LABS: BASOPHILS % 0.8 % (0.0-2.0); EOSINOPHILS % 2.5 % (0.0-5.0); HEMATOCRIT. 27.1 % (42.0-52.0); HEMOGLOBIN. 9.2 g/dL (14.0-18.0); LYMPHOCYTES % 22.2 % (20.0-50.0); MEAN CORPUSCULAR HEMOGLOBIN 33.8 pg (28.0-32.0); MEAN CORPUSCULAR VOLUME 99.2 fL (80.0-94.0); MEAN PLATELET VOLUME 9.1 fl (7.4-10.4); MONOCYTES % 14.1 % (2.0-8.0); NEUTROPHILS % 60.4 % (40.0-76.0); PLATELET 162 x1000/uL (130-400); RED BLOOD CELL COUNT 2.73 mill/uL (4.7-6.1)
[2019-08-20] MEDS ORDERED: CALCIUM ACETATE 667MG CAPSULE PO SCH (08:10)
[2019-08-20] MEDS: ASPIRIN 81MG EC TABLET PO SCH (09:31)
[2019-08-20] MEDS: FOLIC ACID/VITAMIN B COMP W-C TABLET PO SCH (09:31)
[2019-08-20] MEDS: CARVEDILOL 12.5MG TABLET PO SCH ×2 (09:32→21:20)
[2019-08-20] MEDS: APIXABAN 5 MG TABLET PO SCH ×2 (09:32→18:25)
[2019-08-20] MEDS: CALCIUM ACETATE 667 MG TABLET PO SCH ×3 (09:41→18:25)
[2019-08-20] MEDS: CYCLOBENZAPRINE 10MG TABLET PO PRN ×2 (14:11→21:20)
[2019-08-20 17:37] LABS: VITAMIN B12 SERUM 602 pg/mL (211-911)
[2019-08-20 17:43] LABS: FOLIC ACID (FOLATE) SERUM > 20.00 ng/mL (>5.38)
[2019-08-20] MEDS ORDERED: ATORVASTATIN CALCIUM 40MG TABLET PO SCH (21:00)
[2019-08-20] MEDS: FUROSEMIDE 40MG TABLET PO SCH (21:20)
[2019-08-21] VITALS: BP 134/84
[2019-08-21] MEDS ORDERED: ZOLPIDEM TARTRATE 5MG TABLET PO PRN (00:15)
[2019-08-21] MEDS ORDERED: EPOETIN ALFA 10000UNITS/ML VIAL SUBCUT NR (01:00)
[2019-08-21 01:48] LABS: METHADONE URINE SCREEN NEGATIVE (NEGATIVE); OPIATES URINE SCREEN PRESUMTIVE POSITIVE (NEGATIVE)
[2019-08-21 01:49] LABS: *AMPHETAMINES SCREEN URINE NEGATIVE (NEGATIVE); *BARBITURATES SCREEN URINE NEGATIVE (NEGATIVE); *BENZODIAZEPINES SCREEN URINE NEGATIVE (NEGATIVE); *COCAINE SCREEN URINE PRESUMTIVE POSITIVE (NEGATIVE); CANNABINOID URINE SCREEN NEGATIVE (NEGATIVE); PHENCYCLIDINE URINE SCREEN NEGATIVE (NEGATIVE)
[2019-08-21 04:00] VITALS: BP 125/65
[2019-08-21 05:54] LABS: HEMOGLOBIN. 8.9 g/dL (14.0-18.0); MEAN CORPUSCULAR HEMOGLOBIN 32.9 pg (28.0-32.0); MEAN CORPUSCULAR VOLUME 99.7 fL (80.0-94.0); MEAN PLATELET VOLUME 9.3 fl (7.4-10.4); PLATELET 182 x1000/uL (130-400); RED BLOOD CELL COUNT 2.71 mill/uL (4.7-6.1); RED CELL DISTRIBUTION WIDTH 14.9 % (11.6-14.6)
[2019-08-21 06:09] LABS: CHLORIDE 97 mEq/L (98-107)
[2019-08-21 08:00] VITALS: BP 136/85
[2019-08-21] MEDS: CARVEDILOL 12.5MG TABLET PO SCH (09:00)
[2019-08-21] MEDS: DIPHENHYDRAMINE 50MG/ML VIAL IV PRN (09:09)
[2019-08-21] MEDS: APIXABAN 5 MG TABLET PO SCH (09:15)
[2019-08-21] MEDS: FOLIC ACID/VITAMIN B COMP W-C TABLET PO SCH (09:15)
[2019-08-21] MEDS: CALCIUM ACETATE 667 MG TABLET PO SCH ×2 (09:15→14:15)
[2019-08-21] MEDS: ASPIRIN 81MG EC TABLET PO SCH (09:15)
[2019-08-21] MEDS: FUROSEMIDE 40MG TABLET PO SCH (09:15)
[2019-08-21] MEDS ORDERED: IRON SUCROSE COMPLEX 100 MG/5 ML ML IV SCH (10:00)
[2019-08-21] MEDS ORDERED: CALC667T2 PO (11:33)
[2019-08-21] MEDS ORDERED: ATOR-2 PO (11:33)
[2019-08-21] MEDS ORDERED: NEPVIT PO (11:33)
[2019-08-21] MEDS ORDERED: DIPH25TA23 PO (11:33)
[2019-08-21] MEDS ORDERED: COR12 PO (11:33)
[2019-08-21] MEDS ORDERED: ASPI-1158 PO (11:33)
[2019-08-21] MEDS ORDERED: APIX5TAB PO (11:33)
[2019-08-21] MEDS ORDERED: HYDR-4005 PO (11:33)
[2019-08-21 12:00] VITALS: BP 131/79
[2019-08-21] MEDS: CYCLOBENZAPRINE 10MG TABLET PO PRN (12:10)
[2019-08-21] MEDS: HYDROCODONE/ACETAMINOPHEN 5/325MG TABLET PO PRN (12:11)
[2019-08-21 16:55] LABS: PLATELET ESTIMATE NORMAL
[2019-09-22] MEDS ORDERED: CALC500T35 PO (13:11)
[2019-09-22] MEDS ORDERED: HYDR-3281 MT (13:31)
[2019-12-12] MEDS ORDERED: HYDR-4001 MT (12:11)
== END 2019-08-21 15:49 | disposition home or self-care (01) | DRG 203 ==
LOC: ER 14:29 → 7WST 18:54 → EDBEDREQ 18:57 → ENRESERV 23:17
PROVIDERS: ADMIT Internal Medicine; ATTEND Internal Medicine
PROC: 5A1D70Z Performance of Urinary Filtration, Intermittent, Less than 6 Hours Per Day (ICD-10-PCS; principal; 2019-08-21)
DX: R07.89 Other chest pain (principal); I13.2 Hypertensive heart and chronic kidney disease with heart failure and with stage 5 chronic kidney disease, or end stage renal disease; E83.42 Hypomagnesemia; E87.70 Fluid overload, unspecified; N18.6 End stage renal disease; D63.1 Anemia in chronic kidney disease; E78.5 Hyperlipidemia, unspecified; F14.90 Cocaine use, unspecified, uncomplicated; F31.9 Bipolar disorder, unspecified; H54.61 Unqualified visual loss, right eye, normal vision left eye; I50.9 Heart failure, unspecified; J44.9 Chronic obstructive pulmonary disease, unspecified; M19.90 Unspecified osteoarthritis, unspecified site; D53.9 Nutritional anemia, unspecified; D72.821 Monocytosis (symptomatic); F17.210 Nicotine dependence, cigarettes, uncomplicated; R94.31 Abnormal electrocardiogram [ECG] [EKG]; D63.8 Anemia in other chronic diseases classified elsewhere; Z99.2 Dependence on renal dialysis; Z82.3 Family history of stroke; Z82.49 Family history of ischemic heart disease and other diseases of the circulatory system; Z83.3 Family history of diabetes mellitus; Z91.19 Patient's noncompliance with other medical treatment and regimen; Z79.899 Other long term (current) drug therapy; Z79.82 Long term (current) use of aspirin
CPT/HCPCS: 36415; 71045; 80048; 80053; 80305; 82607; 82746; 83880; 84484; 85025; 93005; 93306; 99285; J0885; J1200; Q0163

== ENCOUNTER 2019-11-22 13:07 | Inpatient (IN) | payer MEDICAID ==
[~2019-11-22] VITALS: Ht 172.7 cm; Wt 93.7 kg
[~2019-11-22 13:07] MED LIST changes: +APIX5TAB PO; +ATOR-2 PO; +COR12 PO; -DILT360C27 MT; -DIPH25CA83 PO; +DIPH25TA23 PO; -DOCU-138 MT; -HYDR-4001 PO; -HYDR-4005 MT; +HYDR-4005 PO; -ISOS60TA4 MT; -LISI-604 MT; -MAGN400C MT; -METO-411 MT; +NEPVIT PO; -OMEP20TA15 PO; +TOPUD PO
[2019-11-22] MEDS ORDERED: DIPHENHYDRAMINE 50MG/ML VIAL IV ONE (14:00)
[2019-11-22] MEDS ORDERED: ACETAMINOPHEN 325MG TABLET PO ONE (14:00)
[2019-11-22] MEDS ORDERED: ONDANSETRON HCL 4MG/2ML INJ IV ONE (14:00)
[2019-11-22 14:29] LABS: BASOPHILS % 1.5 % (0.0-2.0); EOSINOPHILS % 1.9 % (0.0-5.0); HEMATOCRIT. 30.8 % (42.0-52.0); HEMOGLOBIN. 10.2 g/dL (14.0-18.0); LYMPHOCYTES % 26.1 % (20.0-50.0); MEAN CORPUSCULAR HEMOGLOBIN 31.8 pg (28.0-32.0); MEAN CORPUSCULAR VOLUME 95.7 fL (80.0-94.0); MONOCYTES % 14.7 % (2.0-8.0); NEUTROPHILS % 55.8 % (40.0-76.0); PLATELET 194 x1000/uL (130-400); RED BLOOD CELL COUNT 3.22 mill/uL (4.7-6.1); RED CELL DISTRIBUTION WIDTH 14.9 % (11.6-14.6)
[2019-11-22 14:34] LABS: CHLORIDE 96 mEq/L (98-107)
[2019-11-22] MEDS ORDERED: ALBUTEROL (0.083%) 2.5MG/3ML NEB HHN STA (14:51)
[2019-11-22] MEDS ORDERED: DEXTROSE 50% WATER 50ML SYRINGE IV ONE (15:00)
[2019-11-22] MEDS ORDERED: INSULIN REGULAR (HUMULIN R) 300UNITS/3ML IV ONE (15:00)
[2019-11-22] MEDS ORDERED: SODIUM BICARBONATE 8.4% 1 MEQ/ML 50ML SYR IV ONE (15:00)
[2019-11-22] MEDS ORDERED: IPRATROPIUM/ALBUTEROL 0.5-3(2.5)MG/3ML NEB HHN PRN (17:15)
[2019-11-22] MEDS ORDERED: DIPHENHYDRAMINE 25MG CAPSULE PO PRN (17:15)
[2019-11-22] MEDS ORDERED: ACETAMINOPHEN 325MG TABLET PO PRN (17:15)
[2019-11-22] MEDS ORDERED: ONDANSETRON HCL 4MG/2ML INJ IV PRN (17:15)
[2019-11-22 23:02] VITALS: BP 125/78
[2019-11-23] VITALS: BP 150/84
[2019-11-23] MEDS ORDERED: HYDROCODONE/ACETAMINOPHEN 5/325MG TABLET PO PRN
[2019-11-23] MEDS ORDERED: DIPHENHYDRAMINE 50MG/ML VIAL IV PRN (01:45)
[2019-11-23 02:00] VITALS: BP 132/67
[2019-11-23 04:00] VITALS: BP 130/63
[2019-11-23 06:00] VITALS: BP 122/69
[2019-11-23] MEDS ORDERED: CALCIUM CARBONATE 500MG TABLET CHEW PO SCH (07:20)
[2019-11-23] MEDS ORDERED: EPOETIN ALFA 10000UNITS/ML VIAL SUBCUT SCH (21:00)
[2019-12-12] MEDS ORDERED: HYDR-4001 MT (12:11)
== END 2019-11-23 08:12 | disposition left against medical advice (07) | DRG 425 ==
LOC: ER 13:07 → EDBEDREQ 15:23 → EDBEDREQSVC 15:23 → ENRESERV 17:53 → 3WST 21:59
PROVIDERS: ADMIT Internal Medicine; ATTEND Emergency Medicine
PROC: 5A1D70Z Performance of Urinary Filtration, Intermittent, Less than 6 Hours Per Day (ICD-10-PCS; principal; 2019-11-22)
DX: E87.5 Hyperkalemia (principal); I13.2 Hypertensive heart and chronic kidney disease with heart failure and with stage 5 chronic kidney disease, or end stage renal disease; R07.9 Chest pain, unspecified; E87.8 Other disorders of electrolyte and fluid balance, not elsewhere classified; E87.1 Hypo-osmolality and hyponatremia; N18.6 End stage renal disease; F31.9 Bipolar disorder, unspecified; D63.1 Anemia in chronic kidney disease; F14.90 Cocaine use, unspecified, uncomplicated; J44.9 Chronic obstructive pulmonary disease, unspecified; I50.9 Heart failure, unspecified; M19.90 Unspecified osteoarthritis, unspecified site; Z53.29 Procedure and treatment not carried out because of patient's decision for other reasons; Z79.01 Long term (current) use of anticoagulants; Z79.891 Long term (current) use of opiate analgesic; Z79.82 Long term (current) use of aspirin; Z79.899 Other long term (current) drug therapy; Z99.2 Dependence on renal dialysis; Z71.51 Drug abuse counseling and surveillance of drug abuser; Z91.14 Patient's other noncompliance with medication regimen
CPT/HCPCS: 36415; 71045; 80053; 82962; 85025; 86850; 86900; 93005; 94640; 96374; 99285; J1200; J1815; J2405; J3490; Q0163

== ENCOUNTER 2020-03-16 11:24 | Inpatient (IN) | payer MEDICAID ==
[~2020-03-16] VITALS: Ht 180.3 cm; Wt 100.2 kg
[~2020-03-16 11:24] MED LIST changes: +HYDR-3281 MT; +HYDR-4001 MT
[2020-03-16 13:39] LABS: BASOPHILS % 0.8 % (0.0-2.0); EOSINOPHILS % 3.4 % (0.0-5.0); HEMATOCRIT. 30.3 % (42.0-52.0); HEMOGLOBIN. 10.1 g/dL (14.0-18.0); LYMPHOCYTES % 17.6 % (20.0-50.0); MEAN CORPUSCULAR HEMOGLOBIN 32.7 pg (28.0-32.0); MEAN CORPUSCULAR VOLUME 97.5 fL (80.0-94.0); MEAN PLATELET VOLUME 8.5 fl (7.4-10.4); MONOCYTES % 9.1 % (2.0-8.0); NEUTROPHILS % 69.1 % (40.0-76.0); PLATELET 186 x1000/uL (130-400); RED CELL DISTRIBUTION WIDTH 15.5 % (11.6-14.6)
[2020-03-16 13:47] LABS: CHLORIDE 105 mEq/L (98-107)
[2020-03-16 13:50] LABS: PROTHROMBIN TIME 10.3 sec (9.6-11.0)
[2020-03-16] MEDS ORDERED: DIPHENHYDRAMINE 50MG/ML VIAL ONE (16:23)
[2020-03-16] MEDS ORDERED: ONDANSETRON HCL 4MG/2ML INJ IV PRN (18:30)
[2020-03-16] MEDS ORDERED: GUAIFENESIN 200MG/10ML SUGAR FREE UDC PO PRN (18:30)
[2020-03-16] MEDS ORDERED: CLONIDINE 0.1MG TABLET PO PRN (18:30)
[2020-03-16] MEDS ORDERED: ACETAMINOPHEN 325MG TABLET PO PRN ×2 (18:30)
[2020-03-16] MEDS ORDERED: DOCUSATE SODIUM 100MG CAPSULE PO PRN (18:30)
[2020-03-16] MEDS: HYDROCODONE/ACETAMINOPHEN 5/325MG TABLET PO PRN (21:16)
[2020-03-16 22:02] VITALS: BP 141/84
[2020-03-16 22:27] VITALS: BP 141/84
[2020-03-16] MEDS: DIPHENHYDRAMINE 50MG/ML VIAL IV PRN (23:53)
[2020-03-17] VITALS: BP 144/77
[2020-03-17] MEDS: HYDROCODONE/ACETAMINOPHEN 5/325MG TABLET PO PRN ×3 (03:05→18:39)
[2020-03-17] MEDS: LORAZEPAM 0.5MG TABLET PO PRN ×2 (03:06→23:01)
[2020-03-17 04:00] VITALS: BP 110/56
[2020-03-17] MEDS: DIPHENHYDRAMINE 50MG/ML VIAL IV PRN ×3 (06:00→18:38)
[2020-03-17 08:00] VITALS: BP 120/78
[2020-03-17 10:08] LABS: BASOPHILS % 1.2 % (0.0-2.0); EOSINOPHILS % 4.3 % (0.0-5.0); HEMATOCRIT. 26.1 % (42.0-52.0); HEMOGLOBIN. 8.6 g/dL (14.0-18.0); LYMPHOCYTES % 20.5 % (20.0-50.0); MEAN CORPUSCULAR HEMOGLOBIN 32.1 pg (28.0-32.0); MONOCYTES % 14.7 % (2.0-8.0); NEUTROPHILS % 59.3 % (40.0-76.0); PLATELET 160 x1000/uL (130-400); RED BLOOD CELL COUNT 2.69 mill/uL (4.7-6.1); RED CELL DISTRIBUTION WIDTH 15.2 % (11.6-14.6)
[2020-03-17] MEDS ORDERED: IPRATROPIUM/ALBUTEROL 0.5-3(2.5)MG/3ML NEB HHN PRN (11:45)
[2020-03-17 12:00] VITALS: BP 143/84
[2020-03-17] MEDS: CALCIUM CARBONATE 1250MG TABLET (500MG ELEMENTAL CALCIUM) PO SCH ×3 (12:51→17:33)
[2020-03-17 16:00] VITALS: BP 103/53
[2020-03-17 17:13] LABS: FOLIC ACID (FOLATE) SERUM 13.6 ng/mL (>5.38)
[2020-03-17] MEDS: APIXABAN 5 MG TABLET PO SCH (17:33)
[2020-03-17 20:00] VITALS: BP 134/80
[2020-03-17] MEDS: CARVEDILOL 12.5MG TABLET PO SCH (21:33)
[2020-03-17] MEDS: ATORVASTATIN CALCIUM 40MG TABLET PO SCH (21:33)
[2020-03-17] MEDS ORDERED: EPOETIN ALFA 10000UNITS/ML VIAL SUBCUT NR (23:30)
[2020-03-18] VITALS (7 sets, daily range): BP systolic 108–127; BP diastolic 57–75
[2020-03-18] MEDS: DIPHENHYDRAMINE 50MG/ML VIAL IV PRN ×4 (00:01→18:05)
[2020-03-18] MEDS: HYDROCODONE/ACETAMINOPHEN 5/325MG TABLET PO PRN ×3 (05:18→21:54)
[2020-03-18] MEDS: FOLIC ACID/VITAMIN B COMP W-C TABLET PO SCH (09:11)
[2020-03-18] MEDS: CALCIUM CARBONATE 1250MG TABLET (500MG ELEMENTAL CALCIUM) PO SCH ×3 (09:11→17:22)
[2020-03-18] MEDS: CARVEDILOL 12.5MG TABLET PO SCH ×2 (09:11→21:55)
[2020-03-18] MEDS: APIXABAN 5 MG TABLET PO SCH ×2 (09:11→17:21)
[2020-03-18] MEDS: ASPIRIN 81MG EC TABLET PO SCH (09:11)
[2020-03-18] MEDS: POLYVINYL ALCOHOL OPHTH DROPS 15ML BOTHEYE PRN ×2 (13:54→20:00)
[2020-03-18] MEDS: KETOROLAC TROMETHAMINE 0.5% OPHTH 3ML BOTHEYE SCH ×2 (14:40→17:22)
[2020-03-18] MEDS ORDERED: EPOETIN ALFA 10000UNITS/ML VIAL SUBCUT NR (21:00)
[2020-03-18] MEDS: ATORVASTATIN CALCIUM 40MG TABLET PO SCH (21:54)
[2020-03-19] MEDS: DIPHENHYDRAMINE 50MG/ML VIAL IV PRN ×3 (00:05→12:37)
[2020-03-19] MEDS: KETOROLAC TROMETHAMINE 0.5% OPHTH 3ML BOTHEYE SCH ×2 (00:11→06:11)
[2020-03-19 04:00] VITALS: BP 116/61
[2020-03-19] MEDS: HYDROCODONE/ACETAMINOPHEN 5/325MG TABLET PO PRN (06:12)
[2020-03-19] MEDS: POLYVINYL ALCOHOL OPHTH DROPS 15ML BOTHEYE PRN (06:17)
[2020-03-19] MEDS ORDERED: CALCIUM CARBONATE 1250MG TABLET (500MG ELEMENTAL CALCIUM) PO SCH (07:15)
[2020-03-19 08:00] VITALS: BP 122/75
[2020-03-19] MEDS: FOLIC ACID/VITAMIN B COMP W-C TABLET PO SCH (08:47)
[2020-03-19] MEDS: APIXABAN 5 MG TABLET PO SCH (08:47)
[2020-03-19] MEDS: ASPIRIN 81MG EC TABLET PO SCH (08:47)
[2020-03-19] MEDS: CARVEDILOL 12.5MG TABLET PO SCH (08:57)
== END 2020-03-19 14:14 | disposition home or self-care (01) | DRG 466 ==
LOC: ER 11:24 → EDBEDREQTM 17:11 → EDBEDREQ 17:11 → 5WST 17:56 → EDBEDREQ 17:57 → EDBEDREQTM 17:57 → ENRESERV 20:53
PROVIDERS: ADMIT Internal Medicine; ATTEND Internal Medicine
PROC: 5A1D70Z Performance of Urinary Filtration, Intermittent, Less than 6 Hours Per Day (ICD-10-PCS; principal; 2020-03-16)
PROC: 5A1D70Z Performance of Urinary Filtration, Intermittent, Less than 6 Hours Per Day (ICD-10-PCS; 2020-03-17)
PROC: 5A1D70Z Performance of Urinary Filtration, Intermittent, Less than 6 Hours Per Day (ICD-10-PCS; 2020-03-18)
DX: T82.510A Breakdown (mechanical) of surgically created arteriovenous fistula, initial encounter (principal); Y71.2 Prosthetic and other implants, materials and accessory cardiovascular devices associated with adverse incidents; I16.0 Hypertensive urgency; N18.6 End stage renal disease; E83.51 Hypocalcemia; D63.1 Anemia in chronic kidney disease; F31.9 Bipolar disorder, unspecified; I50.9 Heart failure, unspecified; D53.9 Nutritional anemia, unspecified; J38.3 Other diseases of vocal cords; I13.2 Hypertensive heart and chronic kidney disease with heart failure and with stage 5 chronic kidney disease, or end stage renal disease; E87.79 Other fluid overload; J44.9 Chronic obstructive pulmonary disease, unspecified; M19.90 Unspecified osteoarthritis, unspecified site; Z99.2 Dependence on renal dialysis; Z79.01 Long term (current) use of anticoagulants; Z79.82 Long term (current) use of aspirin; Z79.899 Other long term (current) drug therapy; Y92.89 Other specified places as the place of occurrence of the external cause
CPT/HCPCS: 36415; 71045; 80048; 80053; 82270; 82607; 82746; 83880; 84484; 85025; 85651; 86140; 86850; 86900; 93005; 94640; 96374; 99285; J0885; J1200

== ENCOUNTER 2020-05-05 16:36 | Emergency (ER) | payer MEDICAID, OTHER ==
[~2020-05-05] VITALS: Ht 180.3 cm; Wt 97.0 kg
[~2020-05-05 16:36] MED LIST changes: -HYDR-3281 MT; -HYDR-4001 MT; -HYDR-4005 PO
[2020-05-05] MEDS ORDERED: SODIUM CHLORIDE 0.9% 500 ML IV ONE (17:45)
[2020-05-05 18:15] LABS: BASOPHILS % 0.5 % (0.0-2.0); EOSINOPHILS % 2.2 % (0.0-5.0); HEMATOCRIT. 28.7 % (42.0-52.0); HEMOGLOBIN. 9.4 g/dL (14.0-18.0); LYMPHOCYTES % 12.9 % (20.0-50.0); MEAN CORPUSCULAR HEMOGLOBIN 31.9 pg (28.0-32.0); MEAN CORPUSCULAR VOLUME 97.3 fL (80.0-94.0); MEAN PLATELET VOLUME 8.7 fl (7.4-10.4); MONOCYTES % 10.2 % (2.0-8.0); NEUTROPHILS % 74.2 % (40.0-76.0); PLATELET 202 x1000/uL (130-400); RED BLOOD CELL COUNT 2.94 mill/uL (4.7-6.1); RED CELL DISTRIBUTION WIDTH 14.9 % (11.6-14.6)
[2020-05-05 18:24] LABS: CHLORIDE 99 mEq/L (98-107)
[2020-05-05] MEDS ORDERED: DIPHENHYDRAMINE 50MG/ML VIAL IV ONE (19:45)
[2020-05-05 20:55] VITALS: BP 159/91
== END 2020-05-05 20:57 | disposition home or self-care (01) ==
LOC: ER 16:36
DX: R19.7 Diarrhea, unspecified (principal); N18.9 Chronic kidney disease, unspecified; D53.9 Nutritional anemia, unspecified; I50.9 Heart failure, unspecified; J44.1 Chronic obstructive pulmonary disease with (acute) exacerbation; Z79.899 Other long term (current) drug therapy; Z98.890 Other specified postprocedural states
CPT/HCPCS: 36415; 71045; 74176; 80053; 83605; 83690; 85025; 93005; 96374; 99285; J1200; J7030

== ENCOUNTER 2020-08-26 10:14 | Inpatient (IN) | payer MEDICAID ==
[~2020-08-26] VITALS: Ht 180.3 cm; Wt 94.8 kg
[~2020-08-26 10:14] MED LIST changes: -ASPI-1158 PO; +ASPI-1406 PO
[2020-08-26 11:10] LABS: HEMATOCRIT. 28.3 % (42.0-52.0); HEMOGLOBIN. 9.2 g/dL (14.0-18.0); MEAN CORPUSCULAR HEMOGLOBIN 31.9 pg (28.0-32.0); MEAN CORPUSCULAR VOLUME 97.8 fL (80.0-94.0); MEAN PLATELET VOLUME 9.1 fl (7.4-10.4); PLATELET 193 x1000/uL (130-400); RED BLOOD CELL COUNT 2.89 mill/uL (4.7-6.1); RED CELL DISTRIBUTION WIDTH 16.9 % (11.6-14.6)
[2020-08-26 11:15] LABS: CHLORIDE 94 mEq/L (98-107)
[2020-08-26 11:36] LABS: PLATELET ESTIMATE NORMAL
[2020-08-26] MEDS ORDERED: CALCIUM GLUCONATE 100MG/ML 10ML VIAL IV ONE (12:00)
[2020-08-26] MEDS ORDERED: IPRATROPIUM/ALBUTEROL 0.5-3(2.5)MG/3ML NEB HHN PRN (13:15)
[2020-08-26] MEDS ORDERED: ONDANSETRON HCL 4MG/2ML INJ IV PRN (13:15)
[2020-08-26] MEDS ORDERED: CLONIDINE 0.1MG TABLET PO PRN (13:15)
[2020-08-26] MEDS: CALCIUM ACETATE 667MG CAPSULE PO SCH (17:23)
[2020-08-26] MEDS: DIPHENHYDRAMINE 50MG/ML VIAL IV PRN (17:23)
[2020-08-26] MEDS: APIXABAN 5 MG TABLET PO SCH (17:23)
[2020-08-26] MEDS: CARVEDILOL 12.5MG TABLET PO SCH (20:56)
[2020-08-26] MEDS ORDERED: EPOETIN ALFA-EPBX 4,000 UNIT/ML VIAL SUBCUT SCH (21:00)
[2020-08-26 21:30] VITALS: BP 144/92
[2020-08-26 23:21] VITALS: BP 144/94
[2020-08-27] MEDS ORDERED: ZOLPIDEM TARTRATE 5MG TABLET PO PRN (00:15)
[2020-08-27] MEDS: CYCLOBENZAPRINE 10MG TABLET PO PRN ×3 (00:53→17:29)
[2020-08-27] MEDS: BENAZEPRIL 10MG TABLET PO SCH ×3 (01:08→21:00)
[2020-08-27] MEDS: ATORVASTATIN CALCIUM 40MG TABLET PO SCH ×2 (01:19→21:34)
[2020-08-27] MEDS: DIPHENHYDRAMINE 50MG/ML VIAL IV PRN ×5 (01:22→22:25)
[2020-08-27 04:00] VITALS: BP 129/80
[2020-08-27] MEDS ORDERED: INFLUENZA VACCINE 05/PF 0.5 ML VIAL IM ONE ×2 (04:45→11:30)
[2020-08-27] MEDS: CALCIUM ACETATE 667MG CAPSULE PO SCH ×3 (06:46→17:29)
[2020-08-27 07:37] LABS: BASOPHILS % 0.8 % (0.0-2.0); EOSINOPHILS % 3.1 % (0.0-5.0); HEMATOCRIT. 24.5 % (42.0-52.0); HEMOGLOBIN. 8.1 g/dL (14.0-18.0); LYMPHOCYTES % 10.4 % (20.0-50.0); MEAN CORPUSCULAR HEMOGLOBIN 31.8 pg (28.0-32.0); MEAN CORPUSCULAR VOLUME 96.6 fL (80.0-94.0); MEAN PLATELET VOLUME 9.2 fl (7.4-10.4); NEUTROPHILS % 73.7 % (40.0-76.0); PLATELET 188 x1000/uL (130-400); RED BLOOD CELL COUNT 2.53 mill/uL (4.7-6.1); RED CELL DISTRIBUTION WIDTH 16.6 % (11.6-14.6)
[2020-08-27 07:43] LABS: CHLORIDE 97 mEq/L (98-107)
[2020-08-27 08:00] VITALS: BP 134/79
[2020-08-27 08:06] LABS: LDL CHOLESTEROL 57 mg/dL (5-100)
[2020-08-27 08:07] LABS: HDL CHOLESTEROL 66 mg/dL (40-59)
[2020-08-27] MEDS: CARVEDILOL 12.5MG TABLET PO SCH ×2 (09:00→21:00)
[2020-08-27] MEDS: ASPIRIN 81MG EC TABLET PO SCH (10:59)
[2020-08-27] MEDS: FOLIC ACID/VITAMIN B COMP W-C TABLET PO SCH (10:59)
[2020-08-27] MEDS: APIXABAN 5 MG TABLET PO SCH ×2 (10:59→17:29)
[2020-08-27] MEDS: HYDROCODONE/ACETAMINOPHEN 5/325MG TABLET PO PRN (15:23)
[2020-08-27 15:30] VITALS: BP 139/82
[2020-08-27 20:00] VITALS: BP 119/69
[2020-08-27] MEDS ORDERED: DIPHENHYDRAMINE 50MG CAPSULE PO PRN (20:00)
[2020-08-27] MEDS ORDERED: EPOETIN ALFA-EPBX 4,000 UNIT/ML VIAL SUBCUT NR (20:00)
[2020-08-28] VITALS: BP 108/57
[2020-08-28 04:00] VITALS: BP 110/62
[2020-08-28] MEDS: CALCIUM ACETATE 667MG CAPSULE PO SCH ×3 (06:50→17:04)
[2020-08-28] MEDS: DIPHENHYDRAMINE 50MG/ML VIAL IV PRN ×3 (06:50→20:03)
[2020-08-28 08:00] VITALS: BP 118/80
[2020-08-28] MEDS: ASPIRIN 81MG EC TABLET PO SCH (08:08)
[2020-08-28] MEDS: FOLIC ACID/VITAMIN B COMP W-C TABLET PO SCH (08:08)
[2020-08-28] MEDS: APIXABAN 5 MG TABLET PO SCH ×2 (08:08→17:04)
[2020-08-28] MEDS: BENAZEPRIL 10MG TABLET PO SCH ×3 (08:08→20:33)
[2020-08-28] MEDS: CARVEDILOL 12.5MG TABLET PO SCH ×3 (08:08→09:00)
[2020-08-28 08:51] LABS: BASOPHILS % 0.9 % (0.0-2.0); EOSINOPHILS % 5.5 % (0.0-5.0); HEMATOCRIT. 26.4 % (42.0-52.0); HEMOGLOBIN. 8.6 g/dL (14.0-18.0); LYMPHOCYTES % 15.6 % (20.0-50.0); MEAN CORPUSCULAR HEMOGLOBIN 31.9 pg (28.0-32.0); MEAN CORPUSCULAR VOLUME 97.7 fL (80.0-94.0); MEAN PLATELET VOLUME 9.3 fl (7.4-10.4); MONOCYTES % 14.8 % (2.0-8.0); NEUTROPHILS % 63.2 % (40.0-76.0); PLATELET 183 x1000/uL (130-400); RED CELL DISTRIBUTION WIDTH 16.6 % (11.6-14.6)
[2020-08-28 12:00] VITALS: BP 116/76
[2020-08-28] MEDS: HYDROCODONE/ACETAMINOPHEN 5/325MG TABLET PO PRN (15:15)
[2020-08-28 16:00] VITALS: BP 113/60
[2020-08-28 20:00] VITALS: BP 117/83
[2020-08-28] MEDS: ATORVASTATIN CALCIUM 40MG TABLET PO SCH (20:04)
[2020-08-28 20:33] LABS: HEPATITIS B SURFACE AB < 3.1 mIU/mL
[2020-08-28 20:44] LABS: HEPATITIS B SURFACE ANTIGEN NEGATIVE
[2020-08-28] MEDS ORDERED: TUBERCULIN,PURIF.PROT.DERIV. 5 TU/0.1 ML SYR ID ONE (21:00)
[2020-08-28] MEDS ORDERED: IRON SUCROSE COMPLEX 100 MG/5 ML ML IV SCH (21:00)
[2020-08-28] MEDS ORDERED: HEPATITIS B VIRUS VACCINE-PF 10 MCG/0.5 VIAL IM ONE (21:00)
[2020-08-28] MEDS ORDERED: EPOETIN ALFA-EPBX 4,000 UNIT/ML VIAL SUBCUT NR (21:00)
[2020-08-29] VITALS: BP 99/54
[2020-08-29 04:00] VITALS: BP 123/73
[2020-08-29] MEDS: DIPHENHYDRAMINE 50MG/ML VIAL IV PRN ×2 (04:06→10:33)
[2020-08-29 06:41] LABS: HEMATOCRIT. 30.3 % (42.0-52.0); HEMOGLOBIN. 9.9 g/dL (14.0-18.0); MEAN CORPUSCULAR HEMOGLOBIN 31.8 pg (28.0-32.0); MEAN CORPUSCULAR VOLUME 97.6 fL (80.0-94.0); MEAN PLATELET VOLUME 9.8 fl (7.4-10.4); PLATELET 198 x1000/uL (130-400); RED BLOOD CELL COUNT 3.11 mill/uL (4.7-6.1); RED CELL DISTRIBUTION WIDTH 16.6 % (11.6-14.6)
[2020-08-29 08:00] VITALS: BP 143/76
[2020-08-29] MEDS: CALCIUM ACETATE 667MG CAPSULE PO SCH ×2 (08:40→12:27)
[2020-08-29] MEDS: FOLIC ACID/VITAMIN B COMP W-C TABLET PO SCH (08:40)
[2020-08-29] MEDS: APIXABAN 5 MG TABLET PO SCH ×2 (08:41→17:50)
[2020-08-29] MEDS: BENAZEPRIL 10MG TABLET PO SCH (08:41)
[2020-08-29] MEDS: ASPIRIN 81MG EC TABLET PO SCH (08:41)
[2020-08-29] MEDS: CARVEDILOL 12.5MG TABLET PO SCH (08:45)
[2020-08-29 12:00] VITALS: BP 105/58
[2020-08-29 14:06] LABS: PLATELET ESTIMATE NORMAL
[2020-08-29 16:00] VITALS: BP 102/60
[2020-08-29] MEDS ORDERED: BENA10TA74 PO (16:53)
[2020-08-29] MEDS ORDERED: EPOETIN ALFA 10000UNITS/ML VIAL SUBCUT NR (18:00)
[2020-08-29 18:07] VITALS: BP 134/86
== END 2020-08-29 19:42 | disposition home or self-care (01) | DRG 425 ==
LOC: ER 10:14 → ENRESERV 19:39 → 8WST 22:30
PROVIDERS: ADMIT Internal Medicine; ATTEND Internal Medicine
PROC: 5A1D70Z Performance of Urinary Filtration, Intermittent, Less than 6 Hours Per Day (ICD-10-PCS; principal; 2020-08-26)
PROC: 5A1D70Z Performance of Urinary Filtration, Intermittent, Less than 6 Hours Per Day (ICD-10-PCS; 2020-08-27)
PROC: 5A1D70Z Performance of Urinary Filtration, Intermittent, Less than 6 Hours Per Day (ICD-10-PCS; 2020-08-28)
DX: E87.79 Other fluid overload (principal); I16.0 Hypertensive urgency; I13.2 Hypertensive heart and chronic kidney disease with heart failure and with stage 5 chronic kidney disease, or end stage renal disease; N18.6 End stage renal disease; E83.51 Hypocalcemia; I50.30 Unspecified diastolic (congestive) heart failure; J44.9 Chronic obstructive pulmonary disease, unspecified; Z20.822 Contact with and (suspected) exposure to COVID-19; J38.7 Other diseases of larynx; D63.1 Anemia in chronic kidney disease; Z79.82 Long term (current) use of aspirin; Z82.49 Family history of ischemic heart disease and other diseases of the circulatory system; Z99.2 Dependence on renal dialysis; Z79.899 Other long term (current) drug therapy
CPT/HCPCS: 36415; 70490; 71045; 80048; 80053; 80061; 82270; 84443; 84484; 85025; 86706; 87015; 87045; 87340; 87426; 87427; 87449; 87493; 89055; 90585; 90686; 90743; 93005; 93970; 99291; J0610; J0885; J1200

== ENCOUNTER 2020-09-21 13:28 | Inpatient (IN) | payer MEDICAID ==
[~2020-09-21] VITALS: Ht 177.8 cm; Wt 88.7 kg
[~2020-09-21 13:28] MED LIST changes: +BENA10TA74 PO
[2020-09-21] MEDS ORDERED: MAGNESIUM/ALUMINUM HYDROXIDE/SIMETHICONE 30ML UDC PO STA (14:08)
[2020-09-21 15:18] LABS: BASOPHILS % 0.8 % (0.0-2.0); EOSINOPHILS % 0.7 % (0.0-5.0); HEMATOCRIT. 34.9 % (42.0-52.0); HEMOGLOBIN. 11.7 g/dL (14.0-18.0); LYMPHOCYTES % 10.6 % (20.0-50.0); MEAN CORPUSCULAR HEMOGLOBIN 32.1 pg (28.0-32.0); MEAN CORPUSCULAR VOLUME 96.1 fL (80.0-94.0); MEAN PLATELET VOLUME 9.5 fl (7.4-10.4); NEUTROPHILS % 78.9 % (40.0-76.0); PLATELET 193 x1000/uL (130-400); RED BLOOD CELL COUNT 3.64 mill/uL (4.7-6.1); RED CELL DISTRIBUTION WIDTH 16.6 % (11.6-14.6)
[2020-09-21 15:23] LABS: CHLORIDE 97 mEq/L (98-107)
[2020-09-21 15:24] LABS: PROTHROMBIN TIME 10.6 sec (9.6-11.0)
[2020-09-21] MEDS ORDERED: ACETAMINOPHEN 325MG TABLET PO ONE (16:00)
[2020-09-21] MEDS ORDERED: PANTOPRAZOLE SODIUM 40 MG/VIAL IV ONE (16:30)
[2020-09-21] MEDS ORDERED: HYDROMORPHONE HCL/PF 2MG/ML CPJ IV ONE (16:30)
[2020-09-21] MEDS ORDERED: ACETAMINOPHEN 325MG TABLET PO PRN (19:00)
[2020-09-21] MEDS ORDERED: CLONIDINE 0.1MG TABLET PO PRN (19:00)
[2020-09-21] MEDS ORDERED: ONDANSETRON HCL 4MG/2ML INJ IV PRN (19:00)
[2020-09-21] MEDS ORDERED: IPRATROPIUM/ALBUTEROL 0.5-3(2.5)MG/3ML NEB HHN PRN (19:00)
[2020-09-21] MEDS: DIPHENHYDRAMINE 50MG/ML VIAL IV PRN (20:10)
[2020-09-21] MEDS: MORPHINE SULFATE 2 MG/ML CPJ (NOT FOR IM USE) IV PRN (21:17)
[2020-09-21 23:00] VITALS: BP 95/60
[2020-09-22] MEDS: DIPHENHYDRAMINE 50MG/ML VIAL IV PRN ×5 (00:45→23:35)
[2020-09-22] MEDS: MORPHINE SULFATE 2 MG/ML CPJ (NOT FOR IM USE) IV PRN ×5 (01:47→19:35)
[2020-09-22 04:00] VITALS: BP 123/80
[2020-09-22 06:23] LABS: BASOPHILS % 1.2 % (0.0-2.0); EOSINOPHILS % 2.9 % (0.0-5.0); HEMATOCRIT. 35.6 % (42.0-52.0); HEMOGLOBIN. 11.5 g/dL (14.0-18.0); LYMPHOCYTES % 21.5 % (20.0-50.0); MEAN CORPUSCULAR VOLUME 99.2 fL (80.0-94.0); MONOCYTES % 13.7 % (2.0-8.0); NEUTROPHILS % 60.7 % (40.0-76.0); RED BLOOD CELL COUNT 3.59 mill/uL (4.7-6.1); RED CELL DISTRIBUTION WIDTH 16.6 % (11.6-14.6)
[2020-09-22 06:35] LABS: CHLORIDE 95 mEq/L (98-107)
[2020-09-22 06:47] LABS: HDL CHOLESTEROL 66 mg/dL (40-59)
[2020-09-22 06:50] LABS: LDL CHOLESTEROL 51 mg/dL (5-100)
[2020-09-22 08:00] VITALS: BP_SYST 104; BP_SYST 107; BP_DIAS 61; BP_DIAS 65
[2020-09-22 12:00] VITALS: BP 104/61
[2020-09-22] MEDS ORDERED: IRON SUCROSE COMPLEX 100 MG/5 ML ML IV SCH (13:00)
[2020-09-22 16:00] VITALS: BP 104/62
[2020-09-22 17:42] LABS: MEAN PLATELET VOLUME 9.8 fl (7.4-10.4); PLATELET 179 x1000/uL (130-400)
[2020-09-22] MEDS ORDERED: IRON SUCROSE COMPLEX 100 MG/5 ML ML IV NR (19:15)
[2020-09-22 20:00] VITALS: BP 96/59
[2020-09-23] VITALS: BP 118/54
[2020-09-23] MEDS: MORPHINE SULFATE 2 MG/ML CPJ (NOT FOR IM USE) IV PRN ×2 (02:27→07:40)
[2020-09-23 03:22] VITALS: BP 118/54
[2020-09-23 04:00] VITALS: BP 122/76
[2020-09-23] MEDS: DIPHENHYDRAMINE 50MG/ML VIAL IV PRN (07:39)
[2020-09-23 07:40] VITALS: BP 120/80
== END 2020-09-23 08:50 | disposition home or self-care (01) | DRG 249 ==
LOC: ER 13:28 → EDBEDREQSVC 21:10 → EDBEDREQ 21:11 → ENRESERV 21:39 → 8WST 22:52
PROVIDERS: ADMIT Internal Medicine; ATTEND Internal Medicine
PROC: 5A1D70Z Performance of Urinary Filtration, Intermittent, Less than 6 Hours Per Day (ICD-10-PCS; principal; 2020-09-22)
DX: K52.9 Noninfective gastroenteritis and colitis, unspecified (principal); E87.6 Hypokalemia; I13.2 Hypertensive heart and chronic kidney disease with heart failure and with stage 5 chronic kidney disease, or end stage renal disease; E11.22 Type 2 diabetes mellitus with diabetic chronic kidney disease; N18.6 End stage renal disease; H54.61 Unqualified visual loss, right eye, normal vision left eye; J44.9 Chronic obstructive pulmonary disease, unspecified; I50.9 Heart failure, unspecified; Z99.2 Dependence on renal dialysis; Z82.49 Family history of ischemic heart disease and other diseases of the circulatory system; Z79.01 Long term (current) use of anticoagulants; Z79.82 Long term (current) use of aspirin; Z79.899 Other long term (current) drug therapy
CPT/HCPCS: 36415; 74176; 80053; 80061; 84443; 85025; 93005; 93970; 99285; C9113; J1170; J1200; J2270; J2405

== ENCOUNTER 2020-11-07 12:13 | Inpatient (IN) | payer MEDICAID ==
[~2020-11-07] VITALS: Ht 180.3 cm; Wt 98.0 kg
[2020-11-07 14:27] LABS: BASOPHILS % 1.2 % (0.0-2.0); EOSINOPHILS % 1.5 % (0.0-5.0); HEMATOCRIT. 26.4 % (42.0-52.0); HEMOGLOBIN. 8.9 g/dL (14.0-18.0); LYMPHOCYTES % 14.8 % (20.0-50.0); MEAN CORPUSCULAR HEMOGLOBIN 31.9 pg (28.0-32.0); MEAN PLATELET VOLUME 8.9 fl (7.4-10.4); MONOCYTES % 14.8 % (2.0-8.0); NEUTROPHILS % 67.7 % (40.0-76.0); PLATELET 239 x1000/uL (130-400); RED BLOOD CELL COUNT 2.81 mill/uL (4.7-6.1); RED CELL DISTRIBUTION WIDTH 15.6 % (11.6-14.6)
[2020-11-07 14:31] LABS: CHLORIDE 102 mEq/L (98-107)
[2020-11-07 14:36] LABS: PROTHROMBIN TIME 10.8 sec (9.6-11.0)
[2020-11-07] MEDS ORDERED: DIPHENHYDRAMINE 25MG CAPSULE PO ONE (15:00)
[2020-11-07] MEDS: DIPHENHYDRAMINE 50MG/ML VIAL IV ONE ×2 (15:35→15:37)
[2020-11-07] MEDS ORDERED: GUAIFENESIN 200MG/10ML SUGAR FREE UDC PO PRN (16:30)
[2020-11-07] MEDS ORDERED: LORAZEPAM 0.5MG TABLET PO PRN (16:30)
[2020-11-07] MEDS ORDERED: ONDANSETRON HCL 4MG/2ML INJ IV PRN (16:30)
[2020-11-07] MEDS ORDERED: ACETAMINOPHEN 325MG TABLET PO PRN ×2 (16:30)
[2020-11-07] MEDS ORDERED: CLONIDINE 0.1MG TABLET PO PRN (16:30)
[2020-11-07] MEDS ORDERED: MAGNESIUM/ALUMINUM HYDROXIDE/SIMETHICONE 30ML UDC PO PRN (16:30)
[2020-11-07] MEDS ORDERED: IPRATROPIUM/ALBUTEROL 0.5-3(2.5)MG/3ML NEB HHN PRN (16:30)
[2020-11-07 20:20] VITALS: BP 143/82
[2020-11-07] MEDS: HYDROCODONE/ACETAMINOPHEN 5/325MG TABLET PO PRN (21:35)
[2020-11-07] MEDS ORDERED: DIPHENHYDRAMINE 50MG/ML VIAL IV PRN (22:15)
[2020-11-07] MEDS: BENAZEPRIL 10MG TABLET PO SCH (23:30)
[2020-11-08] MEDS ORDERED: EPOETIN ALFA-EPBX 10,000 UNIT/ML VIAL SUBCUT NR ×2 (01:00→02:00)
[2020-11-08] MEDS: HYDROCODONE/ACETAMINOPHEN 5/325MG TABLET PO PRN ×2 (02:44→09:04)
[2020-11-08 04:00] VITALS: BP 148/80
[2020-11-08] MEDS: DIPHENHYDRAMINE 50MG/ML VIAL IV PRN ×4 (04:18→22:33)
[2020-11-08] MEDS: IRON SUCROSE COMPLEX 100 MG/5 ML ML IV SCH (05:01)
[2020-11-08 06:24] LABS: HEMATOCRIT. 24.5 % (42.0-52.0); HEMOGLOBIN. 8.1 g/dL (14.0-18.0); MEAN CORPUSCULAR HEMOGLOBIN 31.4 pg (28.0-32.0); MEAN CORPUSCULAR VOLUME 94.5 fL (80.0-94.0); MEAN PLATELET VOLUME 9.1 fl (7.4-10.4); PLATELET 201 x1000/uL (130-400); RED BLOOD CELL COUNT 2.59 mill/uL (4.7-6.1); RED CELL DISTRIBUTION WIDTH 16.2 % (11.6-14.6)
[2020-11-08 08:00] VITALS: BP 130/84
[2020-11-08] MEDS: METOPROLOL TARTRATE 25MG TABLET PO SCH ×2 (09:03→20:43)
[2020-11-08] MEDS: BENAZEPRIL 10MG TABLET PO SCH (09:04)
[2020-11-08 12:00] VITALS: BP 128/69
[2020-11-08] MEDS: HYDROCODONE/ACETAMINOPHEN 10/325MG TABLET PO PRN ×2 (13:34→19:39)
[2020-11-08] MEDS ORDERED: PHENOL/SODIUM PHENOLATE 1.4% SRPAY 177ML MM PRN (14:00)
[2020-11-08 15:15] LABS: PLATELET ESTIMATE NORMAL
[2020-11-08] MEDS: BENZONATATE 100MG CAPSULE PO SCH ×2 (15:15→20:38)
[2020-11-08 17:58] LABS: PHOSPHORUS 6.6 mg/dL (2.5-4.9)
[2020-11-08 18:00] VITALS: BP 130/84
[2020-11-08 20:00] VITALS: BP 119/70
[2020-11-08] MEDS ORDERED: EPOETIN ALFA-EPBX 4,000 UNIT/ML VIAL SUBCUT ONE (23:20)
[2020-11-09] VITALS: BP 105/64
[2020-11-09] MEDS: MORPHINE SULFATE 2 MG/ML CPJ (NOT FOR IM USE) IV PRN ×2 (01:45→11:05)
[2020-11-09 04:00] VITALS: BP 101/59
[2020-11-09] MEDS: DIPHENHYDRAMINE 50MG/ML VIAL IV PRN ×3 (04:54→17:49)
[2020-11-09] MEDS: BENZONATATE 100MG CAPSULE PO SCH ×2 (06:23→13:47)
[2020-11-09] MEDS: HYDROCODONE/ACETAMINOPHEN 5/325MG TABLET PO PRN (06:35)
[2020-11-09 08:00] VITALS: BP 103/57
[2020-11-09] MEDS: METOPROLOL TARTRATE 25MG TABLET PO SCH (09:00)
[2020-11-09] MEDS: BENAZEPRIL 10MG TABLET PO SCH (09:00)
[2020-11-09] MEDS: IRON SUCROSE COMPLEX 100 MG/5 ML ML IV SCH (09:46)
[2020-11-09 12:00] VITALS: BP 109/74
[2020-11-09] MEDS: SEVELAMER CARBONATE 800 MG TABLET PO SCH ×2 (13:47→17:50)
[2020-11-09] MEDS ORDERED: ACETAMINOPHEN WITH CODEINE 300/30MG TABLET PO PRN (14:15)
[2020-11-09] MEDS ORDERED: ASPIRIN 81MG TABLET PO SCH (14:15)
[2020-11-09] MEDS ORDERED: BENZ100C86 PO (14:16)
[2020-11-09 16:00] VITALS: BP 119/58
[2020-11-09] MEDS ORDERED: APIXABAN 5 MG TABLET PO SCH (17:40)
[2020-11-09 18:25] VITALS: BP 119/58
[2020-11-09] MEDS ORDERED: EPOETIN ALFA-EPBX 4,000 UNIT/ML VIAL SUBCUT SCH (21:00)
== END 2020-11-09 18:55 | disposition home or self-care (01) | DRG 425 ==
LOC: ER 12:31 → EDBEDREQ 15:31 → ENRESERV 18:30 → 8WST 21:02
PROVIDERS: ADMIT Internal Medicine; ATTEND Internal Medicine
PROC: 5A1D70Z Performance of Urinary Filtration, Intermittent, Less than 6 Hours Per Day (ICD-10-PCS; principal; 2020-11-07)
PROC: 5A1D70Z Performance of Urinary Filtration, Intermittent, Less than 6 Hours Per Day (ICD-10-PCS; 2020-11-08)
DX: E87.70 Fluid overload, unspecified (principal); I13.2 Hypertensive heart and chronic kidney disease with heart failure and with stage 5 chronic kidney disease, or end stage renal disease; J38.00 Paralysis of vocal cords and larynx, unspecified; N18.6 End stage renal disease; E83.51 Hypocalcemia; D53.9 Nutritional anemia, unspecified; D63.1 Anemia in chronic kidney disease; C32.0 Malignant neoplasm of glottis; I16.0 Hypertensive urgency; I50.9 Heart failure, unspecified; F31.9 Bipolar disorder, unspecified; J44.9 Chronic obstructive pulmonary disease, unspecified; M19.90 Unspecified osteoarthritis, unspecified site; M79.602 Pain in left arm; F14.90 Cocaine use, unspecified, uncomplicated; Z99.2 Dependence on renal dialysis; Z91.15 Patient's noncompliance with renal dialysis; I25.2 Old myocardial infarction; Z91.19 Patient's noncompliance with other medical treatment and regimen; Z82.49 Family history of ischemic heart disease and other diseases of the circulatory system
CPT/HCPCS: 36415; 71045; 80048; 80053; 84100; 85025; 93005; 94640; 99285; C1893; J0885; J1200; J2270; J2405; J7040

== ENCOUNTER 2020-11-23 18:01 | Inpatient (IN) | payer MEDICAID ==
[~2020-11-23] VITALS: Ht 180.3 cm; Wt 96.6 kg
[~2020-11-23 18:01] MED LIST changes: +BENZ100C86 PO; +CALC667T2 MT
[2020-11-23 19:55] LABS: BASOPHILS % 1.1 % (0.0-2.0); EOSINOPHILS % 0.5 % (0.0-5.0); HEMATOCRIT. 29.2 % (42.0-52.0); HEMOGLOBIN. 9.5 g/dL (14.0-18.0); MEAN CORPUSCULAR HEMOGLOBIN 31.9 pg (28.0-32.0); MEAN CORPUSCULAR VOLUME 97.7 fL (80.0-94.0); MEAN PLATELET VOLUME 8.8 fl (7.4-10.4); MONOCYTES % 8.7 % (2.0-8.0); NEUTROPHILS % 74.7 % (40.0-76.0); PLATELET 238 x1000/uL (130-400); RED BLOOD CELL COUNT 2.99 mill/uL (4.7-6.1); RED CELL DISTRIBUTION WIDTH 17.4 % (11.6-14.6)
[2020-11-23 19:58] LABS: CHLORIDE 105 mEq/L (98-107)
[2020-11-23 20:01] LABS: PROTHROMBIN TIME 10.5 sec (9.6-11.0)
[2020-11-23] MEDS ORDERED: CALCIUM GLUCONATE 1,000 MG in DEXT 5% WATER 100 ML IV ONE (20:30)
[2020-11-23] MEDS ORDERED: SODIUM BICARBONATE 8.4% 1 MEQ/ML 50ML SYR IV ONE (20:30)
[2020-11-23] MEDS ORDERED: INSULIN REGULAR (HUMULIN R) 300UNITS/3ML VIAL IV ONE (20:30)
[2020-11-23] MEDS ORDERED: DEXTROSE 50% WATER 50ML SYRINGE IV ONE (20:30)
[2020-11-24] VITALS (9 sets, daily range): BP systolic 136–184; BP diastolic 70–109
[2020-11-24 01:18] LABS: CHLORIDE 105 mEq/L (98-107)
[2020-11-24] MEDS ORDERED: DIPHENHYDRAMINE 25MG CAPSULE PO PRN (04:15)
[2020-11-24] MEDS ORDERED: ACETAMINOPHEN 325MG TABLET PO PRN (04:15)
[2020-11-24] MEDS: CALCIUM ACETATE 667MG CAPSULE PO SCH ×3 (08:07→18:36)
[2020-11-24] MEDS: APIXABAN 5 MG TABLET PO SCH ×2 (08:07→18:36)
[2020-11-24] MEDS: CARVEDILOL 12.5MG TABLET PO SCH ×2 (08:07→20:02)
[2020-11-24] MEDS: FOLIC ACID/VITAMIN B COMP W-C TABLET PO SCH (08:07)
[2020-11-24] MEDS: BENZONATATE 100MG CAPSULE PO PRN ×2 (08:07→20:02)
[2020-11-24 09:41] LABS: CHLORIDE 105 mEq/L (98-107)
[2020-11-24 09:48] LABS: LDL CHOLESTEROL 43 mg/dL (5-100)
[2020-11-24 09:49] LABS: HDL CHOLESTEROL 72 mg/dL (40-59)
[2020-11-24 12:32] LABS: BASOPHILS % 1.2 % (0.0-2.0); HEMATOCRIT. 27.1 % (42.0-52.0); HEMOGLOBIN. 9.2 g/dL (14.0-18.0); LYMPHOCYTES % 17.6 % (20.0-50.0); MEAN CORPUSCULAR HEMOGLOBIN 33.2 pg (28.0-32.0); MEAN CORPUSCULAR VOLUME 97.8 fL (80.0-94.0); MEAN PLATELET VOLUME 8.8 fl (7.4-10.4); MONOCYTES % 13.7 % (2.0-8.0); NEUTROPHILS % 65.5 % (40.0-76.0); PLATELET 187 x1000/uL (130-400); RED BLOOD CELL COUNT 2.77 mill/uL (4.7-6.1); RED CELL DISTRIBUTION WIDTH 17.4 % (11.6-14.6)
[2020-11-24] MEDS: SEVELAMER CARBONATE 800 MG TABLET PO SCH ×2 (13:43→18:36)
[2020-11-24] MEDS ORDERED: LIDOCAINE HCL 1% 20ML VIAL (Pyxis) INJ ONE (14:25)
[2020-11-24] MEDS: IRON SUCROSE COMPLEX 100 MG/5 ML ML IV SCH (18:36)
[2020-11-24] MEDS ORDERED: DIPHENHYDRAMINE 50MG/ML VIAL IV NR (19:15)
[2020-11-24] MEDS: ATORVASTATIN CALCIUM 40MG TABLET PO SCH (20:02)
[2020-11-24] MEDS: HYDROCODONE/ACETAMINOPHEN 5/325MG TABLET PO PRN (22:42)
[2020-11-25] VITALS: BP 136/72
[2020-11-25] MEDS: DIPHENHYDRAMINE 50MG/ML VIAL IV PRN ×3 (02:25→17:35)
[2020-11-25] MEDS: HYDROCODONE/ACETAMINOPHEN 5/325MG TABLET PO PRN ×2 (02:43→11:08)
[2020-11-25 04:00] VITALS: BP 152/71
[2020-11-25] MEDS: SEVELAMER CARBONATE 800 MG TABLET PO SCH ×3 (06:28→19:09)
[2020-11-25] MEDS: BENZONATATE 100MG CAPSULE PO PRN ×2 (06:31→11:06)
[2020-11-25] MEDS: CARVEDILOL 12.5MG TABLET PO SCH ×2 (10:56→20:49)
[2020-11-25] MEDS: FOLIC ACID/VITAMIN B COMP W-C TABLET PO SCH (10:57)
[2020-11-25] MEDS: IRON SUCROSE COMPLEX 100 MG/5 ML ML IV SCH (10:57)
[2020-11-25] MEDS: APIXABAN 5 MG TABLET PO SCH ×2 (10:58→19:09)
[2020-11-25] MEDS ORDERED: COR12 PO (11:32)
[2020-11-25] MEDS ORDERED: LIP40 PO (11:32)
[2020-11-25] MEDS ORDERED: SEVE800T8 PO (11:32)
[2020-11-25] MEDS ORDERED: APIX5TAB PO (11:32)
[2020-11-25] MEDS ORDERED: BENZ100C86 PO (11:32)
[2020-11-25] MEDS ORDERED: GUAI600T26 MT (11:32)
[2020-11-25] MEDS ORDERED: ALBU18HF2 IH (11:33)
[2020-11-25] MEDS: CALCIUM ACETATE 667MG CAPSULE PO SCH ×3 (12:15→19:10)
[2020-11-25 20:00] VITALS: BP 163/93
[2020-11-25] MEDS: ATORVASTATIN CALCIUM 40MG TABLET PO SCH (20:49)
[2020-11-25] MEDS ORDERED: EPOETIN ALFA-EPBX 10,000 UNIT/ML VIAL SUBCUT NR (21:00)
[2020-11-25 22:00] VITALS: BP 150/85
== END 2020-11-25 22:00 | disposition home or self-care (01) | DRG 425 ==
LOC: ER 18:01 → MICUSO 21:06 → EDBEDREQTM 21:11 → EDBEDREQ 21:11 → ENRESERV 21:53 → 5WST 23:13
PROVIDERS: ADMIT Internal Medicine; ATTEND Internal Medicine
PROC: 5A1D70Z Performance of Urinary Filtration, Intermittent, Less than 6 Hours Per Day (ICD-10-PCS; principal; 2020-11-24)
PROC: 02HV33Z Insertion of Infusion Device into Superior Vena Cava, Percutaneous Approach (ICD-10-PCS; 2020-11-24)
PROC: B548ZZA Ultrasonography of Superior Vena Cava, Guidance (ICD-10-PCS; 2020-11-24)
PROC: B5181ZA Fluoroscopy of Superior Vena Cava using Low Osmolar Contrast, Guidance (ICD-10-PCS; 2020-11-24)
PROC: 5A1D70Z Performance of Urinary Filtration, Intermittent, Less than 6 Hours Per Day (ICD-10-PCS; 2020-11-25)
DX: E87.5 Hyperkalemia (principal); I13.2 Hypertensive heart and chronic kidney disease with heart failure and with stage 5 chronic kidney disease, or end stage renal disease; N18.6 End stage renal disease; R65.10 Systemic inflammatory response syndrome (SIRS) of non-infectious origin without acute organ dysfunction; I50.9 Heart failure, unspecified; E16.2 Hypoglycemia, unspecified; D64.9 Anemia, unspecified; F14.90 Cocaine use, unspecified, uncomplicated; F31.9 Bipolar disorder, unspecified; J44.9 Chronic obstructive pulmonary disease, unspecified; Z91.19 Patient's noncompliance with other medical treatment and regimen; Z82.49 Family history of ischemic heart disease and other diseases of the circulatory system; Z99.2 Dependence on renal dialysis; Z72.0 Tobacco use; Z79.899 Other long term (current) drug therapy; Z71.6 Tobacco abuse counseling; Z71.51 Drug abuse counseling and surveillance of drug abuser
CPT/HCPCS: 36415; 36573; 71045; 80053; 80061; 82962; 83036; 83880; 84484; 85025; 93005; 99291; C1725; C1769; C1893; J0610; J0885; J1200; J1815; J3490; J7060; Q0163

== ENCOUNTER 2021-04-12 09:20 | Inpatient (IN) | payer MEDICAID ==
[2021-04-12] VITALS (14 sets, daily range): BP systolic 120–143; BP diastolic 75–96
[~2021-04-12] VITALS: Ht 180.3 cm; Wt 96.6 kg
[~2021-04-12 09:20] MED LIST changes: +ALBU18HF2 IH; -CALC667T2 MT; +GUAI600T26 MT; +HYDR-4009 MT; +LIP40 PO; +SEVE800T8 PO
[2021-04-12 10:32] LABS: BASOPHILS % 1.1 % (0.0-2.0); EOSINOPHILS % 2.4 % (0.0-5.0); HEMOGLOBIN. 9.8 g/dL (14.0-18.0); LYMPHOCYTES % 16.8 % (20.0-50.0); MEAN CORPUSCULAR VOLUME 94.3 fL (80.0-94.0); MEAN PLATELET VOLUME 9.2 fl (7.4-10.4); NEUTROPHILS % 65.7 % (40.0-76.0); PLATELET 191 x1000/uL (130-400); RED BLOOD CELL COUNT 3.07 mill/uL (4.7-6.1); RED CELL DISTRIBUTION WIDTH 14.9 % (11.6-14.6)
[2021-04-12 10:40] LABS: CHLORIDE 98 mEq/L (98-107)
[2021-04-12] MEDS ORDERED: CEFAZOLIN 1000MG PREMIX 50 ML IV ONE ×2 (12:15→12:40)
[2021-04-12] MEDS ORDERED: ALTEPLASE 2MG/VIAL ITC NR (12:30)
[2021-04-12] MEDS ORDERED: HEPARIN 1000 UNITS/ML 10ML ONE (12:40)
[2021-04-12] MEDS ORDERED: FENTANYL CITRATE/PF 50MCG/ML 2ML VIAL ONE (12:40)
[2021-04-12] MEDS ORDERED: IOHEXOL-300 100 ML BOTTLE ONE (12:40)
[2021-04-12 13:29] LABS: PROTHROMBIN TIME 10.7 sec (9.6-11.0)
[2021-04-12] MEDS ORDERED: DIPHENHYDRAMINE 50MG/ML VIAL ONE (14:08)
[2021-04-12] MEDS ORDERED: DIPHENHYDRAMINE 50MG/ML VIAL IV ONE (14:15)
[2021-04-12] MEDS ORDERED: FENTANYL CITRATE/PF 50MCG/ML 2ML VIAL IV ONE (14:30)
[2021-04-12] MEDS: MORPHINE SULFATE 2 MG/ML CPJ (NOT FOR IM USE) IV PRN (20:28)
[2021-04-12] MEDS: DIPHENHYDRAMINE 50MG/ML VIAL IV PRN (20:28)
[2021-04-12] MEDS ORDERED: NALOXONE HCL 0.4MG/ML VIAL IV PRN (23:45)
[2021-04-12] MEDS ORDERED: HYDROCODONE/ACETAMINOPHEN 10/325MG TABLET PO PRN (23:45)
[2021-04-13] VITALS (7 sets, daily range): BP systolic 118–151; BP diastolic 59–81
[2021-04-13] MEDS ORDERED: CYCLOBENZAPRINE 10MG TABLET PO PRN
[2021-04-13] MEDS: IPRATROPIUM/ALBUTEROL 0.5-3(2.5)MG/3ML NEB HHN SCH ×6 (00:56→20:12)
[2021-04-13] MEDS: DIPHENHYDRAMINE 50MG/ML VIAL IV PRN ×5 (04:16→22:34)
[2021-04-13] MEDS: IRON SUCROSE COMPLEX 100 MG/5 ML ML IV SCH (04:16)
[2021-04-13] MEDS: MORPHINE SULFATE 2 MG/ML CPJ (NOT FOR IM USE) IV PRN (04:46)
[2021-04-13] MEDS: ASPIRIN 81MG EC TABLET PO SCH (09:15)
[2021-04-13] MEDS: APIXABAN 5 MG TABLET PO SCH ×2 (09:15→17:37)
[2021-04-13] MEDS: HYDROCODONE/ACETAMINOPHEN 10/325MG TABLET PO PRN ×2 (09:16→16:58)
[2021-04-13] MEDS ORDERED: INFLUENZA VACCINE 05/PF 0.5 ML SYRINGE IM ONE (10:00)
[2021-04-13] MEDS: CARVEDILOL 12.5MG TABLET PO SCH ×2 (10:00→21:36)
[2021-04-13] MEDS: CALCIUM ACETATE 667MG CAPSULE PO SCH ×3 (10:00→18:31)
[2021-04-13 10:40] LABS: BASOPHILS % 0.9 % (0.0-2.0); EOSINOPHILS % 2.8 % (0.0-5.0); HEMATOCRIT. 24.6 % (42.0-52.0); HEMOGLOBIN. 8.3 g/dL (14.0-18.0); MEAN CORPUSCULAR VOLUME 95.4 fL (80.0-94.0); MEAN PLATELET VOLUME 9.3 fl (7.4-10.4); MONOCYTES % 11.3 % (2.0-8.0); PLATELET 161 x1000/uL (130-400); RED BLOOD CELL COUNT 2.58 mill/uL (4.7-6.1)
[2021-04-13] MEDS ORDERED: PANTOPRAZOLE 40MG DR TABLET PO NR (20:30)
[2021-04-13] MEDS ORDERED: ATORVASTATIN CALCIUM 40MG TABLET PO SCH (21:00)
[2021-04-13] MEDS ORDERED: EPOETIN ALFA-EPBX 4,000 UNIT/ML VIAL SUBCUT NR (21:00)
[2021-04-14] VITALS: BP 133/79
[2021-04-14] MEDS: IPRATROPIUM/ALBUTEROL 0.5-3(2.5)MG/3ML NEB HHN SCH ×4 (00:26→12:56)
[2021-04-14] MEDS: HYDROCODONE/ACETAMINOPHEN 10/325MG TABLET PO PRN (01:25)
[2021-04-14 02:32] LABS: HEPATITIS B SURFACE ANTIGEN NEGATIVE
[2021-04-14 04:00] VITALS: BP 136/67
[2021-04-14] MEDS: DIPHENHYDRAMINE 50MG/ML VIAL IV PRN ×2 (05:26→11:08)
[2021-04-14] MEDS ORDERED: PANTOPRAZOLE 40MG DR TABLET PO SCH (07:20)
[2021-04-14 08:00] VITALS: BP 121/68
[2021-04-14] MEDS ORDERED: EPOETIN ALFA 10000UNITS/ML VIAL SUBCUT ONE (09:00)
[2021-04-14] MEDS: CARVEDILOL 12.5MG TABLET PO SCH (09:00)
[2021-04-14] MEDS: IRON SUCROSE COMPLEX 100 MG/5 ML ML IV SCH (10:23)
[2021-04-14] MEDS: ASPIRIN 81MG EC TABLET PO SCH (10:23)
[2021-04-14] MEDS: CALCIUM ACETATE 667MG CAPSULE PO SCH ×2 (10:23→12:50)
[2021-04-14] MEDS: APIXABAN 5 MG TABLET PO SCH (10:24)
[2021-04-14 12:00] VITALS: BP_SYST 126; BP_SYST 134; BP_DIAS 73
[2021-04-14 15:11] VITALS: BP 145/75
== END 2021-04-14 15:45 | disposition home or self-care (01) | DRG 182 ==
LOC: ER 09:27 → 6WST 12:59 → ENRESERV 20:05
PROVIDERS: ADMIT Internal Medicine; ATTEND Internal Medicine
PROC: 05743ZZ Dilation of Left Innominate Vein, Percutaneous Approach (ICD-10-PCS; 2021-04-12)
PROC: 05763ZZ Dilation of Left Subclavian Vein, Percutaneous Approach (ICD-10-PCS; 2021-04-12)
PROC: B51W1ZZ Fluoroscopy of Dialysis Shunt/Fistula using Low Osmolar Contrast (ICD-10-PCS; 2021-04-12)
PROC: B5171ZZ Fluoroscopy of Left Subclavian Vein using Low Osmolar Contrast (ICD-10-PCS; 2021-04-12)
PROC: B51V1ZZ Fluoroscopy of Other Veins using Low Osmolar Contrast (ICD-10-PCS; 2021-04-12)
PROC: B31N1ZZ Fluoroscopy of Other Upper Arteries using Low Osmolar Contrast (ICD-10-PCS; 2021-04-12)
PROC: 5A1D70Z Performance of Urinary Filtration, Intermittent, Less than 6 Hours Per Day (ICD-10-PCS; principal; 2021-04-13)
PROC: 5A09357 Assistance with Respiratory Ventilation, Less than 24 Consecutive Hours, Continuous Positive Airway Pressure (ICD-10-PCS; 2021-04-14)
DX: T82.41XA Breakdown (mechanical) of vascular dialysis catheter, initial encounter (principal); I13.2 Hypertensive heart and chronic kidney disease with heart failure and with stage 5 chronic kidney disease, or end stage renal disease; E46 Unspecified protein-calorie malnutrition; N18.6 End stage renal disease; D63.1 Anemia in chronic kidney disease; Y71.2 Prosthetic and other implants, materials and accessory cardiovascular devices associated with adverse incidents; F17.210 Nicotine dependence, cigarettes, uncomplicated; I50.9 Heart failure, unspecified; Z60.2 Problems related to living alone; J44.9 Chronic obstructive pulmonary disease, unspecified; Z20.822 Contact with and (suspected) exposure to COVID-19; M19.90 Unspecified osteoarthritis, unspecified site; Z99.2 Dependence on renal dialysis; Z82.49 Family history of ischemic heart disease and other diseases of the circulatory system; Z79.01 Long term (current) use of anticoagulants; Z79.82 Long term (current) use of aspirin; Z79.899 Other long term (current) drug therapy; Z71.6 Tobacco abuse counseling; Z71.51 Drug abuse counseling and surveillance of drug abuser; Z68.29 Body mass index [BMI] 29.0-29.9, adult
CPT/HCPCS: 36415; 36902; 71045; 80048; 80053; 83880; 84484; 85025; 86705; 86709; 86803; 87340; 87426; 90686; 93005; 94640; 99152; 99153; 99285; C1725; C1766; C1769; C1887; J0690; J0885; J1200; J1644; J2270; J2997; J3010; Q9967; G0500

== ENCOUNTER 2021-08-18 14:35 | Emergency (ER) | payer OTHER ==
[~2021-08-18] VITALS: Ht 180.3 cm; Wt 72.0 kg
[~2021-08-18 14:35] MED LIST changes: -ATOR-2 PO; +CYCL5TAB MT; -SEVE800T8 PO
[2021-08-18 15:05] VITALS: BP 153/90
[2021-08-18 16:06] LABS: HEMATOCRIT. 26.2 % (42.0-52.0); HEMOGLOBIN. 8.5 g/dL (14.0-18.0); MEAN CORPUSCULAR HEMOGLOBIN 31.5 pg (28.0-32.0); MEAN PLATELET VOLUME 9.6 fl (7.4-10.4); PLATELET 153 x1000/uL (130-400)
[2021-08-18 16:12] LABS: CHLORIDE 101 mEq/L (98-107)
[2021-08-18 16:37] LABS: PLATELET ESTIMATE NORMAL
== END 2021-08-18 16:29 | disposition left against medical advice (07) ==
LOC: ER 14:43
DX: T82.838A Hemorrhage due to vascular prosthetic devices, implants and grafts, initial encounter (principal); I13.2 Hypertensive heart and chronic kidney disease with heart failure and with stage 5 chronic kidney disease, or end stage renal disease; N18.6 End stage renal disease; I50.9 Heart failure, unspecified; M19.90 Unspecified osteoarthritis, unspecified site; J44.9 Chronic obstructive pulmonary disease, unspecified; Z99.2 Dependence on renal dialysis; Z79.82 Long term (current) use of aspirin; Y84.1 Kidney dialysis as the cause of abnormal reaction of the patient, or of later complication, without mention of misadventure at the time of the procedure; Y92.018 Other place in single-family (private) house as the place of occurrence of the external cause
CPT/HCPCS: 36415; 71045; 80053; 85025; 86850; 86900; 99284

== ENCOUNTER 2021-10-17 18:20 | Inpatient (IN) | payer OTHER ==
[~2021-10-17] VITALS: Ht 180.3 cm; Wt 92.6 kg
[~2021-10-17 18:20] MED LIST changes: -APIX5TAB PO; +OMEP40CA20 MT
[2021-10-17] MEDS ORDERED: DIPHENHYDRAMINE 50MG/ML VIAL IM ONE (19:00)
[2021-10-17] MEDS ORDERED: DIPHENHYDRAMINE 50MG/ML VIAL IV ONE (19:30)
[2021-10-17 19:33] LABS: BASOPHILS % 1.2 % (0.0-2.0); EOSINOPHILS % 2.7 % (0.0-5.0); HEMATOCRIT. 24.9 % (42.0-52.0); HEMOGLOBIN. 8.2 g/dL (14.0-18.0); MEAN CORPUSCULAR HEMOGLOBIN 30.8 pg (28.0-32.0); MEAN CORPUSCULAR VOLUME 93.8 fL (80.0-94.0); MEAN PLATELET VOLUME 8.1 fl (7.4-10.4); MONOCYTES % 12.1 % (2.0-8.0); PLATELET 152 x1000/uL (130-400); RED BLOOD CELL COUNT 2.65 mill/uL (4.7-6.1); RED CELL DISTRIBUTION WIDTH 23.1 % (11.6-14.6)
[2021-10-17 19:40] LABS: CHLORIDE 108 mEq/L (98-107)
[2021-10-17] MEDS ORDERED: NITROGLYCERIN OINT 1GM/INCH UDPKT TD ONE (22:00)
[2021-10-17] MEDS ORDERED: METOPROLOL TARTRATE 50MG TABLET PO ONE (22:15)
[2021-10-17] MEDS ORDERED: ASPIRIN 325MG EC TABLET PO ONE (22:15)
[2021-10-18 04:30] VITALS: BP 134/91
[2021-10-18] MEDS ORDERED: DIPHENHYDRAMINE HCL 25 MG PO PRN (07:15)
[2021-10-18] MEDS ORDERED: MEDICATION NOT ON FORMULARY EA (Cyclobenzaprine Hcl 1 TAB) MT PRN (07:15)
[2021-10-18] MEDS ORDERED: ACETAMINOPHEN 325MG TABLET PO PRN (07:15)
[2021-10-18 08:15] VITALS: BP 124/65
[2021-10-18] MEDS ORDERED: DIPHENHYDRAMINE 25MG CAPSULE PO PRN (08:45)
[2021-10-18] MEDS ORDERED: MEDICATION NOT ON FORMULARY EA (Omeprazole 1 CAP) MT SCH (09:00)
[2021-10-18] MEDS ORDERED: CALCIUM ACETATE PO SCH (09:00)
[2021-10-18] MEDS: BENAZEPRIL 10MG TABLET PO SCH ×2 (09:15→21:00)
[2021-10-18] MEDS: CARVEDILOL 12.5MG TABLET PO SCH ×2 (09:15→21:00)
[2021-10-18] MEDS ORDERED: NALOXONE HCL 0.4MG/ML VIAL IV PRN (09:45)
[2021-10-18] MEDS: GUAIFENESIN 600MG ER TABLET PO SCH ×2 (10:16→22:52)
[2021-10-18] MEDS: FOLIC ACID/VITAMIN B COMP W-C TABLET PO SCH (10:17)
[2021-10-18] MEDS: OMEPRAZOLE 20MG CAPSULE EXTENDED RELEASE PO SCH (10:17)
[2021-10-18] MEDS: BENZONATATE 100MG CAPSULE PO SCH ×3 (10:18→22:53)
[2021-10-18] MEDS: ASPIRIN 81MG EC TABLET PO SCH (10:18)
[2021-10-18] MEDS: HYDROCODONE/ACETAMINOPHEN 10/325MG TABLET PO PRN ×2 (10:27→22:54)
[2021-10-18] MEDS ORDERED: CYCLOBENZAPRINE 10MG TABLET PO PRN (10:30)
[2021-10-18] MEDS: IRON SUCROSE COMPLEX 100 MG/5 ML ML IV SCH ×2 (12:00→12:52)
[2021-10-18 12:24] VITALS: BP 133/88
[2021-10-18] MEDS: CALCIUM ACETATE 667MG CAPSULE PO SCH ×2 (12:53→18:33)
[2021-10-18] MEDS ORDERED: DIPHENHYDRAMINE 50MG/ML VIAL IV PRN (14:30)
[2021-10-18 16:23] VITALS: BP 129/76
[2021-10-18 16:51] LABS: HEPATITIS B SURFACE ANTIGEN NEGATIVE
[2021-10-18 20:00] VITALS: BP 128/72
[2021-10-18] MEDS ORDERED: ATORVASTATIN CALCIUM 40MG TABLET PO SCH (21:00)
[2021-10-18] MEDS ORDERED: EPOETIN ALFA 4000UNITS/ML VIAL SUBCUT SCH (21:00)
[2021-10-19] VITALS: BP 133/80
[2021-10-19 04:00] VITALS: BP 131/78
[2021-10-19] MEDS: BENZONATATE 100MG CAPSULE PO SCH ×2 (06:52→15:00)
[2021-10-19] MEDS: OMEPRAZOLE 20MG CAPSULE EXTENDED RELEASE PO SCH (06:53)
[2021-10-19 07:16] LABS: BASOPHILS % 1.4 % (0.0-2.0); EOSINOPHILS % 3.4 % (0.0-5.0); HEMATOCRIT. 26.3 % (42.0-52.0); HEMOGLOBIN. 8.8 g/dL (14.0-18.0); LYMPHOCYTES % 16.7 % (20.0-50.0); MEAN CORPUSCULAR HEMOGLOBIN 31.6 pg (28.0-32.0); MEAN CORPUSCULAR VOLUME 94.4 fL (80.0-94.0); MEAN PLATELET VOLUME 8.8 fl (7.4-10.4); MONOCYTES % 13.4 % (2.0-8.0); NEUTROPHILS % 65.1 % (40.0-76.0); PLATELET 155 x1000/uL (130-400); RED BLOOD CELL COUNT 2.78 mill/uL (4.7-6.1); RED CELL DISTRIBUTION WIDTH 22.7 % (11.6-14.6)
[2021-10-19 07:31] LABS: CHLORIDE 107 mEq/L (98-107)
[2021-10-19 07:45] LABS: PHOSPHORUS 6.2 mg/dL (2.5-4.9)
[2021-10-19 07:46] LABS: LDL CHOLESTEROL 51 mg/dL (5-100)
[2021-10-19 07:48] LABS: HDL CHOLESTEROL 86 mg/dL (40-59)
[2021-10-19 08:06] VITALS: BP 144/87
[2021-10-19] MEDS: CALCIUM ACETATE 667MG CAPSULE PO SCH ×2 (08:33→13:46)
[2021-10-19] MEDS: ASPIRIN 81MG EC TABLET PO SCH (08:33)
[2021-10-19] MEDS: FOLIC ACID/VITAMIN B COMP W-C TABLET PO SCH (08:33)
[2021-10-19] MEDS: CARVEDILOL 12.5MG TABLET PO SCH (08:33)
[2021-10-19] MEDS: GUAIFENESIN 600MG ER TABLET PO SCH (08:34)
[2021-10-19] MEDS: BENAZEPRIL 10MG TABLET PO SCH (08:34)
[2021-10-19] MEDS: HYDROCODONE/ACETAMINOPHEN 10/325MG TABLET PO PRN (11:04)
[2021-10-19] MEDS: IRON SUCROSE COMPLEX 100 MG/5 ML ML IV SCH (11:08)
[2021-10-19] MEDS ORDERED: LIDOCAINE HCL 1% 10 MG/ML 10ML VIAL ONE (11:26)
[2021-10-19 12:10] VITALS: BP 150/85
[2021-10-19 14:20] VITALS: BP 114/69
== END 2021-10-19 16:15 | disposition home or self-care (01) | DRG 203 ==
LOC: ER 18:20 → MICUSO 23:26 → 6WST 10-18 02:31
PROVIDERS: ADMIT Internal Medicine; ATTEND Internal Medicine
PROC: 5A1D70Z Performance of Urinary Filtration, Intermittent, Less than 6 Hours Per Day (ICD-10-PCS; 2021-10-18)
PROC: 0JPT3XZ Removal of Tunneled Vascular Access Device from Trunk Subcutaneous Tissue and Fascia, Percutaneous Approach (ICD-10-PCS; principal; 2021-10-19)
PROC: 02PYX3Z Removal of Infusion Device from Great Vessel, External Approach (ICD-10-PCS; 2021-10-19)
DX: M94.0 Chondrocostal junction syndrome [Tietze] (principal); I13.2 Hypertensive heart and chronic kidney disease with heart failure and with stage 5 chronic kidney disease, or end stage renal disease; N18.6 End stage renal disease; E87.8 Other disorders of electrolyte and fluid balance, not elsewhere classified; D63.1 Anemia in chronic kidney disease; J39.8 Other specified diseases of upper respiratory tract; I50.9 Heart failure, unspecified; Z20.822 Contact with and (suspected) exposure to COVID-19; M19.90 Unspecified osteoarthritis, unspecified site; J44.9 Chronic obstructive pulmonary disease, unspecified; Z82.49 Family history of ischemic heart disease and other diseases of the circulatory system; Z99.2 Dependence on renal dialysis; Z79.899 Other long term (current) drug therapy; H54.61 Unqualified visual loss, right eye, normal vision left eye
CPT/HCPCS: 36415; 36589; 71045; 80053; 80061; 80069; 83036; 83880; 84484; 85025; 86705; 86709; 86803; 87340; 87426; 93005; 93306; 99285; J0885; J1200; J3490; Q0163

== ENCOUNTER 2022-03-07 11:21 | Inpatient (IN) | payer MEDICAID, OTHER ==
[~2022-03-07] VITALS: Ht 180.3 cm; Wt 95.3 kg
[2022-03-07 12:33] LABS: BASOPHILS % 1.1 % (0.0-2.0); EOSINOPHILS % 0.8 % (0.0-5.0); HEMATOCRIT. 22.8 % (42.0-52.0); HEMOGLOBIN. 7.5 g/dL (14.0-18.0); LYMPHOCYTES % 8.6 % (20.0-50.0); MEAN CORPUSCULAR VOLUME 97.4 fL (80.0-94.0); MEAN PLATELET VOLUME 8.8 fl (7.4-10.4); MONOCYTES % 11.2 % (2.0-8.0); NEUTROPHILS % 78.3 % (40.0-76.0); PLATELET 190 x1000/uL (130-400); RED BLOOD CELL COUNT 2.34 mill/uL (4.7-6.1)
[2022-03-07 12:44] LABS: CHLORIDE 101 mEq/L (98-107)
[2022-03-07] MEDS ORDERED: DIPHENHYDRAMINE 50MG/ML VIAL IV ONE (13:15)
[2022-03-07] MEDS ORDERED: ACETAMINOPHEN 325MG TABLET PO ONE (13:30)
[2022-03-07] MEDS ORDERED: LABETALOL HCL VIAL 20 MG/4 ML VIAL IV ONE (13:30)
[2022-03-07] MEDS ORDERED: LABETALOL 5MG/ML SYR 20 MG/4 ML SYRINGE IV NR (13:30)
[2022-03-07 18:00] VITALS: BP 158/94
[2022-03-07 18:12] VITALS: BP 158/94
[2022-03-07 20:00] VITALS: BP 166/100
[2022-03-07] MEDS ORDERED: CLONIDINE 0.1MG TABLET PO PRN (20:15)
[2022-03-07] MEDS ORDERED: IPRATROPIUM/ALBUTEROL 0.5-3(2.5)MG/3ML NEB HHN PRN (20:15)
[2022-03-07] MEDS ORDERED: ACETAMINOPHEN 325MG TABLET PO PRN (20:30)
[2022-03-07] MEDS ORDERED: NALOXONE HCL 0.4MG/ML VIAL IV PRN (20:45)
[2022-03-07] MEDS: CARVEDILOL 12.5MG TABLET PO SCH (21:10)
[2022-03-07] MEDS: AMLODIPINE 10MG TABLET PO SCH (21:10)
[2022-03-07] MEDS: ISOSORBIDE MONONITRATE 60MG TABLET SR 24HR PO SCH (21:11)
[2022-03-07] MEDS: GUAIFENESIN 600MG ER TABLET PO SCH (21:11)
[2022-03-07] MEDS: DIPHENHYDRAMINE 50MG/ML VIAL IV PRN (21:12)
[2022-03-07] MEDS: HYDROCODONE/ACETAMINOPHEN 10/325MG TABLET PO PRN (21:12)
[2022-03-07] MEDS: ATORVASTATIN CALCIUM 40MG TABLET PO SCH (21:12)
[2022-03-08] VITALS: BP 144/88
[2022-03-08] MEDS: DIPHENHYDRAMINE 50MG/ML VIAL IV PRN ×2 (03:24→21:28)
[2022-03-08] MEDS: HYDROCODONE/ACETAMINOPHEN 10/325MG TABLET PO PRN ×3 (03:24→14:21)
[2022-03-08 04:00] VITALS: BP 124/75
[2022-03-08 07:30] LABS: LYMPHOCYTES % 16.9 % (20.0-50.0); MEAN CORPUSCULAR HEMOGLOBIN 32.5 pg (28.0-32.0); MEAN PLATELET VOLUME 9.1 fl (7.4-10.4); MONOCYTES % 14.3 % (2.0-8.0); NEUTROPHILS % 64.8 % (40.0-76.0); PLATELET 183 x1000/uL (130-400); RED BLOOD CELL COUNT 2.15 mill/uL (4.7-6.1); RED CELL DISTRIBUTION WIDTH 14.8 % (11.6-14.6)
[2022-03-08 07:49] LABS: HEMATOCRIT. 21.1 % (42.0-52.0)
[2022-03-08 08:00] VITALS: BP 140/93
[2022-03-08] MEDS ORDERED: ASPIRIN 81MG EC TABLET PO SCH (09:00)
[2022-03-08] MEDS ORDERED: FOLIC ACID/VITAMIN B COMP W-C TABLET PO SCH (09:00)
[2022-03-08] MEDS: FOLIC ACID/VITAMIN B COMP W-C TABLET PO SCH (09:39)
[2022-03-08] MEDS: GUAIFENESIN 600MG ER TABLET PO SCH ×2 (09:40→18:59)
[2022-03-08] MEDS: FAMOTIDINE 20MG TABLET PO SCH (09:40)
[2022-03-08] MEDS: AMLODIPINE 10MG TABLET PO SCH (09:40)
[2022-03-08] MEDS: CARVEDILOL 12.5MG TABLET PO SCH ×2 (09:40→18:59)
[2022-03-08] MEDS: ISOSORBIDE MONONITRATE 60MG TABLET SR 24HR PO SCH (09:40)
[2022-03-08 12:00] VITALS: BP 147/88
[2022-03-08] MEDS: BENZONATATE 100MG CAPSULE PO PRN ×2 (14:22→21:13)
[2022-03-08 16:00] VITALS: BP 138/61
[2022-03-08] MEDS ORDERED: CYCLOBENZAPRINE 10MG TABLET PO NR (19:00)
[2022-03-08 20:00] VITALS: BP 126/85
[2022-03-08] MEDS ORDERED: IRON SUCROSE COMPLEX 100 MG/5 ML ML IV SCH (20:00)
[2022-03-08] MEDS ORDERED: EPOETIN ALFA-EPBX 4,000 UNIT/ML VIAL SUBCUT NR (21:00)
[2022-03-08] MEDS: ATORVASTATIN CALCIUM 40MG TABLET PO SCH (21:13)
[2022-03-08] MEDS: GUAIFENESIN-DM 200MG-20MG/10ML UDC PO PRN (21:16)
[2022-03-09] VITALS (9 sets, daily range): BP systolic 131–166; BP diastolic 71–100
[2022-03-09] MEDS: AMLODIPINE 10MG TABLET PO SCH (09:00)
[2022-03-09] MEDS: ISOSORBIDE MONONITRATE 60MG TABLET SR 24HR PO SCH (09:00)
[2022-03-09] MEDS: CARVEDILOL 12.5MG TABLET PO SCH ×2 (09:00→16:16)
[2022-03-09] MEDS: FAMOTIDINE 20MG TABLET PO SCH (09:03)
[2022-03-09] MEDS: DIPHENHYDRAMINE 50MG/ML VIAL IV PRN ×2 (09:03→14:45)
[2022-03-09] MEDS: GUAIFENESIN 600MG ER TABLET PO SCH ×2 (09:03→16:16)
[2022-03-09] MEDS: FOLIC ACID/VITAMIN B COMP W-C TABLET PO SCH (09:03)
[2022-03-09] MEDS: GUAIFENESIN-DM 200MG-20MG/10ML UDC PO PRN ×2 (09:17→13:30)
[2022-03-09] MEDS: BENZONATATE 100MG CAPSULE PO PRN (09:17)
[2022-03-09] MEDS: HYDROCODONE/ACETAMINOPHEN 10/325MG TABLET PO PRN (09:25)
[2022-03-09] MEDS ORDERED: BENZ100C86 MT (12:46)
[2022-03-09] MEDS ORDERED: TUSSL MT (12:46)
[2022-03-09 13:21] LABS: BASOPHILS % 0.7 % (0.0-2.0); EOSINOPHILS % 2.2 % (0.0-5.0); LYMPHOCYTES % 10.7 % (20.0-50.0); MEAN CORPUSCULAR HEMOGLOBIN 32.3 pg (28.0-32.0); MEAN PLATELET VOLUME 8.8 fl (7.4-10.4); MONOCYTES % 13.6 % (2.0-8.0); NEUTROPHILS % 72.8 % (40.0-76.0); PLATELET 165 x1000/uL (130-400); RED BLOOD CELL COUNT 2.05 mill/uL (4.7-6.1); RED CELL DISTRIBUTION WIDTH 14.7 % (11.6-14.6)
[2022-03-09 13:38] LABS: HEMATOCRIT. 20.3 % (42.0-52.0); HEMOGLOBIN. 6.6 g/dL (14.0-18.0)
[2022-03-09] MEDS ORDERED: CALCIUM GLUCONATE 100MG/ML 10ML VIAL IV ONE (14:00)
[2022-03-09 15:02] LABS: HEPATITIS B SURFACE ANTIGEN NEGATIVE
[2022-03-09] MEDS ORDERED: CALCIUM GLUCONATE 1GM PREMIX 50 ML IV NR (16:00)
[2022-03-09 17:03] LABS: HEMATOCRIT 28.5 % (42.0-52.0); HEMOGLOBIN 9.4 g/dL (14.0-18.0)
== END 2022-03-09 18:11 | disposition home or self-care (01) | DRG 203 ==
LOC: ER 11:21 → 6WST 16:15 → EDBEDREQTM 16:16 → EDBEDREQ 16:16 → ENRESERV 16:53
PROVIDERS: ADMIT Internal Medicine; ATTEND Internal Medicine
PROC: 5A1D70Z Performance of Urinary Filtration, Intermittent, Less than 6 Hours Per Day (ICD-10-PCS; 2022-03-07)
PROC: 30233N1 Transfusion of Nonautologous Red Blood Cells into Peripheral Vein, Percutaneous Approach (ICD-10-PCS; principal; 2022-03-09)
DX: M94.0 Chondrocostal junction syndrome [Tietze] (principal); I13.2 Hypertensive heart and chronic kidney disease with heart failure and with stage 5 chronic kidney disease, or end stage renal disease; D63.1 Anemia in chronic kidney disease; N18.6 End stage renal disease; E87.1 Hypo-osmolality and hyponatremia; Z20.822 Contact with and (suspected) exposure to COVID-19; J44.9 Chronic obstructive pulmonary disease, unspecified; I50.9 Heart failure, unspecified; M19.90 Unspecified osteoarthritis, unspecified site; J38.7 Other diseases of larynx; Z82.49 Family history of ischemic heart disease and other diseases of the circulatory system; Z99.2 Dependence on renal dialysis
CPT/HCPCS: 36415; 70490; 71045; 80048; 80053; 83880; 84484; 85014; 85018; 85025; 86705; 86709; 86803; 86850; 86900; 86920; 87340; 87426; 93005; 99285; J0610; J0885; J1200; J3490; P9016

== ENCOUNTER 2022-08-29 13:38 | Inpatient (IN) | payer OTHER ==
[~2022-08-29] VITALS: Ht 180.3 cm; Wt 96.6 kg
[~2022-08-29 13:38] MED LIST changes: -ASPI-1406 PO; +BENZ100C86 MT; +FLUT1DIS3 INH; +TUSSL MT
[2022-08-29] MEDS ORDERED: ASPIRIN 81MG TABLET PO ONE (16:00)
[2022-08-29] MEDS: ASPIRIN 81MG TABLET PO NR ×2 (16:00→20:25)
[2022-08-29 17:30] LABS: HEMATOCRIT. 24.6 % (42.0-52.0); HEMOGLOBIN. 7.9 g/dL (14.0-18.0); MEAN CORPUSCULAR VOLUME 96.2 fL (80.0-94.0); MEAN PLATELET VOLUME 8.9 fl (7.4-10.4); PLATELET 166 x1000/uL (130-400); RED BLOOD CELL COUNT 2.55 mill/uL (4.7-6.1); RED CELL DISTRIBUTION WIDTH 23.3 % (11.6-14.6)
[2022-08-29 17:31] LABS: CHLORIDE 104 mEq/L (98-107)
[2022-08-29] MEDS ORDERED: ALBUTEROL (0.083%) 2.5MG/3ML NEB HHN ONE (18:15)
[2022-08-29] MEDS ORDERED: SODIUM BICARBONATE 8.4% 1 MEQ/ML 50ML SYR IV ONE (18:15)
[2022-08-29] MEDS ORDERED: SODIUM POLYSTYRENE SULFONATE 15 G/60 ML BOT PO ONE (18:15)
[2022-08-29 18:30] LABS: PLATELET ESTIMATE NORMAL
[2022-08-30] VITALS (11 sets, daily range): BP systolic 144–182; BP diastolic 87–112
[2022-08-30] MEDS ORDERED: ONDANSETRON HCL 4MG TABLET PO PRN (01:45)
[2022-08-30] MEDS ORDERED: ZOLPIDEM TARTRATE 5MG TABLET PO PRN (01:45)
[2022-08-30] MEDS: DIPHENHYDRAMINE 50MG/ML VIAL IV PRN ×3 (02:18→17:21)
[2022-08-30] MEDS: HYDROCODONE/ACETAMINOPHEN 5/325MG TABLET PO PRN ×4 (02:19→20:14)
[2022-08-30 05:34] LABS: HEMATOCRIT. 22.2 % (42.0-52.0); HEMOGLOBIN. 7.2 g/dL (14.0-18.0); MEAN CORPUSCULAR VOLUME 95.1 fL (80.0-94.0); MEAN PLATELET VOLUME 9.5 fl (7.4-10.4); PLATELET 157 x1000/uL (130-400); RED BLOOD CELL COUNT 2.34 mill/uL (4.7-6.1); RED CELL DISTRIBUTION WIDTH 23.2 % (11.6-14.6)
[2022-08-30] MEDS: HYDRALAZINE HCL 100MG TABLET PO SCH ×3 (05:35→21:37)
[2022-08-30] MEDS ORDERED: IPRATROPIUM/ALBUTEROL 0.5-3(2.5)MG/3ML NEB HHN NR (08:00)
[2022-08-30] MEDS ORDERED: RACEPINEPHRINE 2.25% 0.5ML NEB VIAL HHN PRN ×2 (08:15)
[2022-08-30] MEDS: GUAIFENESIN 600MG ER TABLET PO SCH ×2 (08:23→21:06)
[2022-08-30] MEDS: SEVELAMER CARBONATE 800 MG TABLET PO SCH ×3 (08:26→17:21)
[2022-08-30] MEDS ORDERED: METHYLPREDNISOLONE SOD SUCC 40 MG/ML VIAL IV NR (08:30)
[2022-08-30] MEDS ORDERED: METHYLPREDNISOLONE SOD SUCC 125 MG/2 ML VIAL IV NR (08:30)
[2022-08-30] MEDS: AMLODIPINE 10MG TABLET PO SCH (09:00)
[2022-08-30] MEDS: FOLIC ACID/VITAMIN B COMP W-C TABLET PO SCH (09:00)
[2022-08-30] MEDS: CARVEDILOL 12.5MG TABLET PO SCH ×2 (09:00→21:06)
[2022-08-30] MEDS: IPRATROPIUM/ALBUTEROL 0.5-3(2.5)MG/3ML NEB HHN SCH ×3 (13:23→21:19)
[2022-08-30 13:31] LABS: PLATELET ESTIMATE NORMAL
[2022-08-30 14:10] LABS: HEPATITIS B SURFACE ANTIGEN NEGATIVE
[2022-08-30] MEDS: METHYLPREDNISOLONE SOD SUCC 40 MG/ML VIAL IV SCH ×2 (15:23→21:36)
[2022-08-30] MEDS ORDERED: CYCLOBENZAPRINE 10MG TABLET PO NR (19:45)
[2022-08-30] MEDS ORDERED: DIPHENHYDRAMINE 25MG CAPSULE PO NR (19:45)
[2022-08-30] MEDS ORDERED: EPOETIN ALFA-EPBX 4,000 UNIT/ML VIAL SUBCUT NR (21:00)
[2022-08-30] MEDS ORDERED: IRON SUCROSE COMPLEX 100 MG/5 ML ML IV SCH (21:00)
[2022-08-30] MEDS ORDERED: ATORVASTATIN CALCIUM 40MG TABLET PO SCH (21:00)
[2022-08-31] VITALS (14 sets, daily range): BP systolic 116–160; BP diastolic 53–91
[2022-08-31] MEDS: HYDROCODONE/ACETAMINOPHEN 5/325MG TABLET PO PRN ×2 (00:29→13:18)
[2022-08-31] MEDS: IPRATROPIUM/ALBUTEROL 0.5-3(2.5)MG/3ML NEB HHN SCH ×5 (01:20→16:55)
[2022-08-31] MEDS: DIPHENHYDRAMINE 50MG/ML VIAL IV PRN ×2 (01:35→09:44)
[2022-08-31] MEDS: METHYLPREDNISOLONE SOD SUCC 40 MG/ML VIAL IV SCH ×2 (06:35→14:31)
[2022-08-31] MEDS: HYDRALAZINE HCL 100MG TABLET PO SCH ×2 (06:35→14:31)
[2022-08-31] MEDS: FOLIC ACID/VITAMIN B COMP W-C TABLET PO SCH (08:31)
[2022-08-31] MEDS: SEVELAMER CARBONATE 800 MG TABLET PO SCH ×3 (08:31→17:00)
[2022-08-31] MEDS: AMLODIPINE 10MG TABLET PO SCH (08:31)
[2022-08-31] MEDS: GUAIFENESIN 600MG ER TABLET PO SCH (08:31)
[2022-08-31] MEDS: CARVEDILOL 12.5MG TABLET PO SCH (08:32)
[2022-08-31] MEDS ORDERED: BENZ100C86 MT (12:41)
[2022-08-31] MEDS ORDERED: FLUT1DIS3 INH (12:41)
[2022-08-31] MEDS ORDERED: P20 MT (12:41)
[2022-08-31 17:29] LABS: HEMOGLOBIN. 7.1 g/dL (14.0-18.0); MEAN CORPUSCULAR HEMOGLOBIN 30.5 pg (28.0-32.0); MEAN PLATELET VOLUME 9.6 fl (7.4-10.4); PLATELET 168 x1000/uL (130-400); RED BLOOD CELL COUNT 2.34 mill/uL (4.7-6.1); RED CELL DISTRIBUTION WIDTH 22.2 % (11.6-14.6)
[2022-08-31 20:59] LABS: PLATELET ESTIMATE NORMAL
[2022-08-31] MEDS ORDERED: EPOETIN ALFA-EPBX 4,000 UNIT/ML VIAL SUBCUT NR (21:00)
== END 2022-08-31 19:15 | disposition home health service (06) | DRG 194 ==
LOC: ER 13:38 → 3WST 18:59
PROVIDERS: ADMIT Internal Medicine; ATTEND Internal Medicine
PROC: 5A1D70Z Performance of Urinary Filtration, Intermittent, Less than 6 Hours Per Day (ICD-10-PCS; principal; 2022-08-30)
PROC: 5A1D70Z Performance of Urinary Filtration, Intermittent, Less than 6 Hours Per Day (ICD-10-PCS; 2022-08-31)
DX: I13.2 Hypertensive heart and chronic kidney disease with heart failure and with stage 5 chronic kidney disease, or end stage renal disease (principal); J96.00 Acute respiratory failure, unspecified whether with hypoxia or hypercapnia; N18.6 End stage renal disease; D63.1 Anemia in chronic kidney disease; E83.51 Hypocalcemia; I50.33 Acute on chronic diastolic (congestive) heart failure; J44.9 Chronic obstructive pulmonary disease, unspecified; E87.5 Hyperkalemia; J38.7 Other diseases of larynx; H54.8 Legal blindness, as defined in USA; F17.200 Nicotine dependence, unspecified, uncomplicated; Z99.2 Dependence on renal dialysis; Z82.49 Family history of ischemic heart disease and other diseases of the circulatory system; Z79.899 Other long term (current) drug therapy; Z91.15 Patient's noncompliance with renal dialysis
CPT/HCPCS: 36415; 71045; 80048; 80053; 80061; 83036; 83880; 84484; 85025; 86705; 86709; 86803; 87340; 90935; 93005; 94640; 99285; J0885; J1200; J2920; J2930; J3490; Q0162; Q0163

== ENCOUNTER 2022-09-02 11:26 | Inpatient (IN) | payer OTHER ==
[~2022-09-02] VITALS: Ht 175.3 cm; Wt 102.7 kg
[~2022-09-02 11:26] MED LIST changes: +P20 MT
[2022-09-02] MEDS ORDERED: ALBUTEROL (0.083%) 2.5MG/3ML NEB HHN STA (11:30)
[2022-09-02] MEDS ORDERED: IPRATROPIUM BROMIDE (0.02%) 0.5MG/2.5ML NEB HHN STA (11:30)
[2022-09-02 12:50] LABS: HEMATOCRIT. 25.3 % (42.0-52.0); HEMOGLOBIN. 8.1 g/dL (14.0-18.0); MEAN CORPUSCULAR HEMOGLOBIN 30.1 pg (28.0-32.0); MEAN CORPUSCULAR VOLUME 94.7 fL (80.0-94.0); MEAN PLATELET VOLUME 9.8 fl (7.4-10.4); PLATELET 217 x1000/uL (130-400); RED BLOOD CELL COUNT 2.68 mill/uL (4.7-6.1); RED CELL DISTRIBUTION WIDTH 22.3 % (11.6-14.6)
[2022-09-02 13:08] LABS: CHLORIDE 91 mEq/L (98-107)
[2022-09-02] MEDS ORDERED: VANCOMYCIN 1G PREMIX 200 ML IV ONE (13:15)
[2022-09-02] MEDS ORDERED: PIPERACILLIN/TAZ 3.375G PREMIX 50 ML IV ONE (13:15)
[2022-09-02] MEDS ORDERED: CALCIUM CHLORIDE 1,000 MG in DEXT 5% WATER 90 ML IV ONE (13:30)
[2022-09-02 13:33] LABS: NUCLEATED RED BLOOD CELLS 2 /100 WBC; PLATELET ESTIMATE NORMAL
[2022-09-02 14:39] LABS: BG BASE EXCESS -9.8 mmol/L (-2.0-2.0); BG CARBOXYHEMOGLOBIN 0.9 % (0.5-1.5); BG DEOXYHEMOGLOBIN 0.6 % (0.0-5.0); BG FRACTION INSPIRED OXYGEN 60; BG HCO3 ACT 15.9 mmol/L (22.0-26.0); BG METHEMOGLOBIN 0.3 % (0.0-1.5); BG OXYGEN SATURATION 99.4 % (92.0-98.5); BG OXYHEMOGLOBIN 98.2 % (94.0-97.0); BG PCO2 33.9 mmHg (35.0-45.0); BG PH 7.288 (7.350-7.450); BG PO2 203.2 mmHg (75.0-100.0); BG SAMPLE SITE RIGHT RADIAL; BG TOTAL HEMOGLOBIN 8.2 g/dL (12.0-18.0); BG VENT MODE MASK - BIPAP
[2022-09-02 17:46] LABS: HEPATITIS B SURFACE ANTIGEN NEGATIVE
[2022-09-02] MEDS: IRON SUCROSE COMPLEX 100 MG/5 ML ML IV SCH (20:00)
[2022-09-02] MEDS ORDERED: EPOETIN ALFA 4000UNITS/ML VIAL SUBCUT NR (21:00)
[2022-09-02] MEDS ORDERED: EPOETIN ALFA-EPBX 4,000 UNIT/ML VIAL SUBCUT NR (21:14)
[2022-09-02] MEDS ORDERED: DIPHENHYDRAMINE 50MG/ML VIAL IV PRN (23:00)
[2022-09-02 23:50] VITALS: BP 147/91
[2022-09-02 23:55] VITALS: BP 134/75
[2022-09-03] VITALS (17 sets, daily range): BP systolic 109–160; BP diastolic 62–91
[2022-09-03 10:56] LABS: HEMATOCRIT. 23.7 % (42.0-52.0); HEMOGLOBIN. 7.7 g/dL (14.0-18.0); MEAN CORPUSCULAR HEMOGLOBIN 30.4 pg (28.0-32.0); MEAN CORPUSCULAR VOLUME 93.6 fL (80.0-94.0); MEAN PLATELET VOLUME 9.6 fl (7.4-10.4); PLATELET 181 x1000/uL (130-400); RED BLOOD CELL COUNT 2.54 mill/uL (4.7-6.1); RED CELL DISTRIBUTION WIDTH 21.7 % (11.6-14.6)
[2022-09-03] MEDS ORDERED: ACETAMINOPHEN 325MG TABLET PO PRN (11:00)
[2022-09-03] MEDS ORDERED: ONDANSETRON HCL 4MG/2ML INJ IV PRN (11:00)
[2022-09-03] MEDS ORDERED: BENZONATATE 100MG CAPSULE PO PRN (11:00)
[2022-09-03] MEDS: PREDNISONE 20MG TABLET PO SCH (11:06)
[2022-09-03] MEDS ORDERED: IPRATROPIUM/ALBUTEROL 0.5-3(2.5)MG/3ML NEB HHN SCH (12:00)
[2022-09-03] MEDS ORDERED: PIPERACILLIN/TAZOBACTAM 3.375 G in DEXTROSE 5% WATER 50 ML IV SCH (12:30)
[2022-09-03] MEDS: ALBUTEROL (0.083%) 2.5MG/3ML NEB HHN SCH ×3 (14:15→21:23)
[2022-09-03] MEDS: IPRATROPIUM BROMIDE (0.02%) 0.5MG/2.5ML NEB HHN SCH ×3 (14:15→21:22)
[2022-09-03] MEDS ORDERED: DIPHENHYDRAMINE 50MG/ML VIAL IV NR (14:45)
[2022-09-03] MEDS ORDERED: NALOXONE HCL 0.4MG/ML VIAL IV PRN (15:00)
[2022-09-03] MEDS ORDERED: MAGNESIUM/ALUMINUM HYDROXIDE/SIMETHICONE 30ML UDC PO PRN (16:00)
[2022-09-03] MEDS: HYDROCODONE/ACETAMINOPHEN 5/325MG TABLET PO PRN (17:44)
[2022-09-03] MEDS: CALCIUM ACETATE 667MG CAPSULE PO SCH (17:44)
[2022-09-03 19:35] LABS: PLATELET ESTIMATE NORMAL
[2022-09-03] MEDS ORDERED: EPOETIN ALFA 3000UNITS/ML VIAL SUBCUT NR (21:00)
[2022-09-03] MEDS: IRON SUCROSE COMPLEX 100 MG/5 ML ML IV SCH (22:16)
[2022-09-03] MEDS: FAMOTIDINE 20MG TABLET PO SCH (22:17)
[2022-09-04] VITALS (22 sets, daily range): BP systolic 146–188; BP diastolic 80–141
[2022-09-04] MEDS: IPRATROPIUM BROMIDE (0.02%) 0.5MG/2.5ML NEB HHN SCH ×4 (01:13→21:25)
[2022-09-04] MEDS: ALBUTEROL (0.083%) 2.5MG/3ML NEB HHN SCH ×4 (01:13→21:25)
[2022-09-04] MEDS: HYDROCODONE/ACETAMINOPHEN 5/325MG TABLET PO PRN ×3 (02:44→22:54)
[2022-09-04] MEDS: CALCIUM ACETATE 667MG CAPSULE PO SCH ×3 (07:58→17:17)
[2022-09-04] MEDS: PREDNISONE 20MG TABLET PO SCH (08:00)
[2022-09-04] MEDS ORDERED: DIPHENHYDRAMINE 50MG/ML VIAL IV NR (08:00)
[2022-09-04] MEDS ORDERED: LEVOFLOXACIN 250MG TABLET PO SCH (11:00)
[2022-09-04] MEDS ORDERED: HYDRALAZINE HCL 50MG TABLET PO SCH (18:45)
[2022-09-04] MEDS ORDERED: IPRA3AMP9 NEB (19:55)
[2022-09-04] MEDS ORDERED: BUDESONIDE 0.5MG/2ML NEB HHN SCH (20:00)
[2022-09-04] MEDS ORDERED: ZOLPIDEM TARTRATE 5MG TABLET PO PRN (21:15)
[2022-09-04] MEDS ORDERED: CYCLOBENZAPRINE 10MG TABLET PO PRN (21:15)
[2022-09-04] MEDS: FAMOTIDINE 20MG TABLET PO SCH (22:53)
[2022-09-04] MEDS: IRON SUCROSE COMPLEX 100 MG/5 ML ML IV SCH (22:53)
[2022-09-05] VITALS: BP 144/88
[2022-09-05] MEDS: ALBUTEROL (0.083%) 2.5MG/3ML NEB HHN SCH (01:46)
[2022-09-05] MEDS: IPRATROPIUM BROMIDE (0.02%) 0.5MG/2.5ML NEB HHN SCH (01:46)
[2022-09-05 02:00] VITALS: BP 167/82
[2022-09-05 04:00] VITALS: BP 155/96
[2022-09-05 05:53] VITALS: BP 134/82
== END 2022-09-05 07:13 | disposition left against medical advice (07) | DRG 133 ==
LOC: ER 11:26 → MICUSO 12:18 → EDBEDREQ 12:37 → EDBEDREQTM 12:37 → 5EST 21:01
PROVIDERS: ADMIT Internal Medicine; ATTEND Internal Medicine
PROC: 5A09357 Assistance with Respiratory Ventilation, Less than 24 Consecutive Hours, Continuous Positive Airway Pressure (ICD-10-PCS; principal; 2022-09-02)
PROC: 5A1D70Z Performance of Urinary Filtration, Intermittent, Less than 6 Hours Per Day (ICD-10-PCS; 2022-09-02)
PROC: 5A09357 Assistance with Respiratory Ventilation, Less than 24 Consecutive Hours, Continuous Positive Airway Pressure (ICD-10-PCS; 2022-09-03)
PROC: 5A1D70Z Performance of Urinary Filtration, Intermittent, Less than 6 Hours Per Day (ICD-10-PCS; 2022-09-04)
DX: J96.00 Acute respiratory failure, unspecified whether with hypoxia or hypercapnia (principal); I50.33 Acute on chronic diastolic (congestive) heart failure; N18.6 End stage renal disease; E83.51 Hypocalcemia; D63.1 Anemia in chronic kidney disease; J44.9 Chronic obstructive pulmonary disease, unspecified; I13.2 Hypertensive heart and chronic kidney disease with heart failure and with stage 5 chronic kidney disease, or end stage renal disease; F17.210 Nicotine dependence, cigarettes, uncomplicated; F14.90 Cocaine use, unspecified, uncomplicated; J38.7 Other diseases of larynx; Z82.49 Family history of ischemic heart disease and other diseases of the circulatory system; Z99.2 Dependence on renal dialysis; Z91.199 Patient's noncompliance with other medical treatment and regimen due to unspecified reason; Z91.15 Patient's noncompliance with renal dialysis
CPT/HCPCS: 36415; 36600; 71045; 80048; 80053; 82375; 82805; 84484; 85025; 86705; 86709; 86803; 87340; 87426; 90935; 93005; 94640; 94644; 94660; 99291; C9803; J0885; J1200; J2543; J3370; J3490; J7060; J7512; J7626

== ENCOUNTER 2022-10-01 08:03 | Inpatient (IN) | payer OTHER ==
[2022-10-01] VITALS (30 sets, daily range): BP systolic 106–137; BP diastolic 49–70
[~2022-10-01] VITALS: Ht 172.7 cm; Wt 98.6 kg
[~2022-10-01 08:03] MED LIST changes: +IPRA3AMP9 NEB
[2022-10-01] MEDS ORDERED: FENTANYL 2500MCG/250ML PMX 250 ML IV ONE (08:45)
[2022-10-01] MEDS ORDERED: FENTANYL CITRATE/PF 50MCG/ML 2ML VIAL IV ONE (08:45)
[2022-10-01] MEDS ORDERED: ETOMIDATE 2MG/ML 10ML VIAL IV ONE (08:45)
[2022-10-01] MEDS ORDERED: FENTANYL CITRATE 2,500 MCG in SODIUM CHLORIDE 0.9% 200 ML IV PRN (09:15)
[2022-10-01 09:16] LABS: HEMATOCRIT. 28.4 % (42.0-52.0); HEMOGLOBIN. 9.3 g/dL (14.0-18.0); MEAN CORPUSCULAR HEMOGLOBIN 32.4 pg (28.0-32.0); MEAN PLATELET VOLUME 8.2 fl (7.4-10.4); PLATELET 255 x1000/uL (130-400); RED BLOOD CELL COUNT 2.87 mill/uL (4.7-6.1); RED CELL DISTRIBUTION WIDTH 20.7 % (11.6-14.6)
[2022-10-01 09:22] LABS: CHLORIDE 98 mEq/L (98-107)
[2022-10-01 09:25] LABS: PROTHROMBIN TIME 11.1 sec (9.6-11.0)
[2022-10-01] MEDS ORDERED: LIDOCAINE HCL 1% 30ML VIAL (10MG/ML) ONE (09:29)
[2022-10-01] MEDS ORDERED: ALBUTEROL (0.083%) 2.5MG/3ML NEB HHN STA (09:47)
[2022-10-01] MEDS ORDERED: METHYLPREDNISOLONE SOD SUCC 125 MG/2 ML VIAL IV STA (09:47)
[2022-10-01] MEDS ORDERED: IPRATROPIUM BROMIDE (0.02%) 0.5MG/2.5ML NEB HHN STA (09:47)
[2022-10-01 09:54] LABS: PLATELET ESTIMATE NORMAL
[2022-10-01 10:12] LABS: PHOSPHORUS 7.7 mg/dL (2.5-4.9)
[2022-10-01 10:26] LABS: BG BASE EXCESS -2.4 mmol/L (-2.0-2.0); BG CARBOXYHEMOGLOBIN 2.8 % (0.5-1.5); BG DEOXYHEMOGLOBIN 2.4 % (0.0-5.0); BG FRACTION INSPIRED OXYGEN 50; BG HCO3 ACT 23.6 mmol/L (22.0-26.0); BG METHEMOGLOBIN 0.2 % (0.0-1.5); BG OXYGEN SATURATION 97.5 % (92.0-98.5); BG OXYHEMOGLOBIN 94.6 % (94.0-97.0); BG PCO2 45.6 mmHg (35.0-45.0); BG PH 7.332 (7.350-7.450); BG SAMPLE SITE RIGHT RADIAL; BG TOTAL HEMOGLOBIN 11.6 g/dL (12.0-18.0); BG VENT MODE VENT - AC
[2022-10-01 10:39] LABS: CLARITY URINE CLEAR (CLEAR); COLOR URINE YELLOW (YELLOW); KETONES URINE TRACE (NEGATIVE); LEUKOCYTE ESTERASE URINE NEGATIVE (NEGATIVE); NITRITE URINE NEGATIVE (NEGATIVE); OCCULT BLOOD URINE TRACE (NEGATIVE); PH URINE 6.5 (4.5-8.0); PROTEIN URINE 2+ (NEGATIVE); SPECIFIC GRAVITY URINE 1.017 (1.005-1.030); UROBILINOGEN URINE 0.2 E.U./dL (0.2-1.0)
[2022-10-01] MEDS ORDERED: MORPHINE SULFATE 10 MG/ML CPJ IV ONE (11:00)
[2022-10-01] MEDS ORDERED: FENTANYL CITRATE/PF 2,500 MCG in SODIUM CHLORIDE 0.9% 200 ML IV PRN (12:30)
[2022-10-01] MEDS ORDERED: IPRATROPIUM/ALBUTEROL 0.5-3(2.5)MG/3ML NEB HHN PRN (12:30)
[2022-10-01] MEDS: PANTOPRAZOLE SODIUM 40 MG/VIAL IV SCH (13:01)
[2022-10-01] MEDS: CEFEPIME 2,000 MG in DEXT 5% WATER 100 ML IV SCH (13:01)
[2022-10-01] MEDS: METHYLPREDNISOLONE SOD SUCC 125 MG/2 ML VIAL IV SCH ×2 (13:02→21:30)
[2022-10-01] MEDS: PROPOFOL 10MG/ML 100ML 100 ML IV PRN ×3 (13:58→20:38)
[2022-10-01] MEDS ORDERED: VANCOMYCIN 1.25GM PMX (XELLIA) 250 ML IV NR (14:00)
[2022-10-01] MEDS ORDERED: VECURONIUM BROMIDE 10 MG/VIAL IV ONE (16:27)
[2022-10-01] MEDS ORDERED: SODIUM CHLORIDE 0.9% 10ML VIAL ONE (16:27)
[2022-10-01] MEDS: IPRATROPIUM/ALBUTEROL 0.5-3(2.5)MG/3ML NEB HHN SCH (21:20)
[2022-10-02] VITALS (93 sets, daily range): BP systolic 88–164; BP diastolic 53–102
[2022-10-02] MEDS: PROPOFOL 10MG/ML 100ML 100 ML IV PRN ×7 (00:14→23:42)
[2022-10-02] MEDS: IPRATROPIUM/ALBUTEROL 0.5-3(2.5)MG/3ML NEB HHN SCH ×4 (02:26→20:18)
[2022-10-02] MEDS: METHYLPREDNISOLONE SOD SUCC 125 MG/2 ML VIAL IV SCH (05:50)
[2022-10-02] MEDS ORDERED: FENTANYL CITRATE/PF 2,500 MCG in SODIUM CHLORIDE 0.9% 200 ML IV PRN (06:15)
[2022-10-02] MEDS: PANTOPRAZOLE SODIUM 40 MG/VIAL IV SCH (09:32)
[2022-10-02] MEDS ORDERED: VANCOMYCIN 1500MG in DEXTROSE 5% WATER 250ML IV NR (10:00)
[2022-10-02 10:04] LABS: HEMATOCRIT. 25.1 % (42.0-52.0); HEMOGLOBIN. 8.6 g/dL (14.0-18.0); MEAN CORPUSCULAR HEMOGLOBIN 33.4 pg (28.0-32.0); MEAN CORPUSCULAR VOLUME 97.6 fL (80.0-94.0); MEAN PLATELET VOLUME 8.4 fl (7.4-10.4); PLATELET 207 x1000/uL (130-400); RED BLOOD CELL COUNT 2.57 mill/uL (4.7-6.1); RED CELL DISTRIBUTION WIDTH 19.7 % (11.6-14.6)
[2022-10-02] MEDS ORDERED: PROPOFOL 10MG/ML 100ML 100 ML IV PRN (10:30)
[2022-10-02] MEDS ORDERED: DIPHENHYDRAMINE 50MG/ML VIAL IM PRN (10:45)
[2022-10-02] MEDS ORDERED: PIPERACILLIN/TAZOBACTAM 3.375GM/50ML PREMIX IV ONE (12:15)
[2022-10-02 12:59] LABS: BG BASE EXCESS -5.7 mmol/L (-2.0-2.0); BG DEOXYHEMOGLOBIN 2.4 % (0.0-5.0); BG FRACTION INSPIRED OXYGEN 50; BG HCO3 ACT 19.8 mmol/L (22.0-26.0); BG METHEMOGLOBIN 0.4 % (0.0-1.5); BG OXYGEN SATURATION 97.6 % (92.0-98.5); BG OXYHEMOGLOBIN 97.2 % (94.0-97.0); BG PCO2 38.6 mmHg (35.0-45.0); BG PH 7.327 (7.350-7.450); BG PO2 107.9 mmHg (75.0-100.0); BG SAMPLE SITE RIGHT RADIAL; BG TOTAL HEMOGLOBIN 9.1 g/dL (12.0-18.0); BG VENT MODE VENT - AC
[2022-10-02 13:02] LABS: PLATELET ESTIMATE NORMAL
[2022-10-02] MEDS ORDERED: NOREPINEPHRINE 32 MG in DEXT 5% WATER 218 ML IV PRN (14:45)
[2022-10-02] MEDS ORDERED: ALBUMIN HUMAN 25GM/100ML (25%) IV NR (15:21)
[2022-10-02] MEDS: METHYLPREDNISOLONE SOD SUCC 40 MG/ML VIAL IV SCH ×2 (16:04→21:00)
[2022-10-02] MEDS: CEFEPIME 2,000 MG in DEXT 5% WATER 100 ML IV SCH (16:36)
[2022-10-02] MEDS: DIPHENHYDRAMINE 50MG/ML VIAL IV PRN (17:55)
[2022-10-02] MEDS ORDERED: EPOETIN ALFA-EPBX 4,000 UNIT/ML VIAL SUBCUT NR (21:00)
[2022-10-03] VITALS (73 sets, daily range): BP systolic 98–187; BP diastolic 40–125
[2022-10-03] MEDS: IPRATROPIUM/ALBUTEROL 0.5-3(2.5)MG/3ML NEB HHN SCH ×4 (02:24→21:05)
[2022-10-03] MEDS: PROPOFOL 10MG/ML 100ML 100 ML IV PRN ×2 (03:20→07:52)
[2022-10-03] MEDS: DIPHENHYDRAMINE 50MG/ML VIAL IV PRN ×2 (03:20→15:27)
[2022-10-03] MEDS: METHYLPREDNISOLONE SOD SUCC 40 MG/ML VIAL IV SCH ×3 (05:34→21:05)
[2022-10-03 07:41] LABS: HEMATOCRIT. 23.8 % (42.0-52.0); HEMOGLOBIN. 7.8 g/dL (14.0-18.0); MEAN CORPUSCULAR HEMOGLOBIN 31.8 pg (28.0-32.0); MEAN CORPUSCULAR VOLUME 96.7 fL (80.0-94.0); MEAN PLATELET VOLUME 8.5 fl (7.4-10.4); PLATELET 174 x1000/uL (130-400); RED BLOOD CELL COUNT 2.46 mill/uL (4.7-6.1); RED CELL DISTRIBUTION WIDTH 19.8 % (11.6-14.6)
[2022-10-03 08:48] LABS: BG BASE EXCESS -2.8 mmol/L (-2.0-2.0); BG CARBOXYHEMOGLOBIN 0.4 % (0.5-1.5); BG DEOXYHEMOGLOBIN 4.9 % (0.0-5.0); BG FRACTION INSPIRED OXYGEN 30; BG METHEMOGLOBIN 0.1 % (0.0-1.5); BG OXYGEN SATURATION 95.1 % (92.0-98.5); BG OXYHEMOGLOBIN 94.6 % (94.0-97.0); BG PCO2 37.8 mmHg (35.0-45.0); BG PH 7.382 (7.350-7.450); BG PO2 82.8 mmHg (75.0-100.0); BG SAMPLE SITE RIGHT RADIAL; BG TOTAL HEMOGLOBIN 9.2 g/dL (12.0-18.0); BG TOTAL RESPIRATORY RATE 20 b/min; BG VENT MODE VENT - AC
[2022-10-03] MEDS ORDERED: LORAZEPAM 2MG/ML CPJ IV NR (09:45)
[2022-10-03 09:59] LABS: NUCLEATED RED BLOOD CELLS 1 /100 WBC; PLATELET ESTIMATE NORMAL
[2022-10-03 10:17] LABS: BG BASE EXCESS -2.2 mmol/L (-2.0-2.0); BG CARBOXYHEMOGLOBIN 0.2 % (0.5-1.5); BG DEOXYHEMOGLOBIN 6.7 % (0.0-5.0); BG FRACTION INSPIRED OXYGEN 30; BG HCO3 ACT 23.6 mmol/L (22.0-26.0); BG METHEMOGLOBIN 0.3 % (0.0-1.5); BG OXYGEN SATURATION 93.3 % (92.0-98.5); BG OXYHEMOGLOBIN 92.8 % (94.0-97.0); BG PH 7.337 (7.350-7.450); BG PO2 75.1 mmHg (75.0-100.0); BG SAMPLE SITE RIGHT RADIAL; BG TOTAL HEMOGLOBIN 9.9 g/dL (12.0-18.0); BG TOTAL RESPIRATORY RATE 22 b/min; BG VENT MODE VENT - CPAP
[2022-10-03] MEDS ORDERED: RACEPINEPHRINE 2.25% 0.5ML NEB VIAL HHN PRN (10:45)
[2022-10-03] MEDS: PANTOPRAZOLE SODIUM 40 MG/VIAL IV SCH (10:58)
[2022-10-03] MEDS ORDERED: CEFEPIME 2,000 MG in DEXT 5% WATER 100 ML IV SCH (15:00)
[2022-10-03] MEDS ORDERED: DILT300T10 MT (15:57)
[2022-10-03] MEDS ORDERED: APIX5TAB MT (15:57)
[2022-10-03] MEDS ORDERED: VANCOMYCIN 1G PREMIX 200 ML IV NR (16:00)
[2022-10-03] MEDS: CLONIDINE 0.1MG TABLET PO PRN (17:52)
[2022-10-03] MEDS: HYDROCODONE/ACETAMINOPHEN 10/325MG TABLET PO PRN (20:43)
[2022-10-03] MEDS: PIPERACILLIN/TAZOBACTAM 3.375 G in DEXTROSE 5% WATER 50 ML IV SCH ×2 (20:55→21:05)
[2022-10-03] MEDS ORDERED: IRON SUCROSE COMPLEX 100 MG/5 ML ML IV NR (22:00)
[2022-10-03] MEDS ORDERED: EPOETIN ALFA-EPBX 4,000 UNIT/ML VIAL SUBCUT NR (22:00)
[2022-10-04] VITALS (9 sets, daily range): BP systolic 112–169; BP diastolic 62–121
[2022-10-04 00:50] LABS: HEPATITIS B SURFACE ANTIGEN NEGATIVE
[2022-10-04] MEDS: IPRATROPIUM/ALBUTEROL 0.5-3(2.5)MG/3ML NEB HHN SCH ×2 (03:33→08:44)
[2022-10-04] MEDS: METHYLPREDNISOLONE SOD SUCC 40 MG/ML VIAL IV SCH ×3 (05:05→21:05)
[2022-10-04] MEDS: PANTOPRAZOLE SODIUM 40 MG/VIAL IV SCH (08:44)
[2022-10-04] MEDS: HYDROCODONE/ACETAMINOPHEN 10/325MG TABLET PO PRN ×3 (08:45→20:18)
[2022-10-04] MEDS: PIPERACILLIN/TAZOBACTAM 3.375 G in DEXTROSE 5% WATER 50 ML IV SCH ×2 (08:54→22:00)
[2022-10-04] MEDS ORDERED: NALOXONE HCL 0.4MG/ML VIAL IV PRN (13:15)
[2022-10-04] MEDS ORDERED: ALBUTEROL (0.083%) 2.5MG/3ML NEB HHN PRN (14:45)
[2022-10-04] MEDS ORDERED: IPRATROPIUM BROMIDE (0.02%) 0.5MG/2.5ML NEB HHN PRN (14:45)
[2022-10-04] MEDS: CLONIDINE 0.1MG TABLET PO PRN (16:04)
[2022-10-04] MEDS: IPRATROPIUM BROMIDE (0.02%) 0.5MG/2.5ML NEB HHN SCH ×2 (16:19→21:09)
[2022-10-04] MEDS: ALBUTEROL (0.083%) 2.5MG/3ML NEB HHN SCH ×2 (16:19→21:09)
[2022-10-04] MEDS: DIPHENHYDRAMINE 50MG/ML VIAL IV PRN (21:04)
[2022-10-04] MEDS: IRON SUCROSE COMPLEX 100 MG/5 ML ML IV SCH (21:59)
[2022-10-05] VITALS (14 sets, daily range): BP systolic 15–167; BP diastolic 60–100
[2022-10-05] MEDS: HYDROCODONE/ACETAMINOPHEN 10/325MG TABLET PO PRN ×5 (00:57→21:45)
[2022-10-05] MEDS: IPRATROPIUM BROMIDE (0.02%) 0.5MG/2.5ML NEB HHN SCH ×3 (01:24→20:02)
[2022-10-05] MEDS: ALBUTEROL (0.083%) 2.5MG/3ML NEB HHN SCH ×3 (01:25→20:03)
[2022-10-05] MEDS: METHYLPREDNISOLONE SOD SUCC 40 MG/ML VIAL IV SCH ×3 (05:05→21:43)
[2022-10-05] MEDS: CLONIDINE 0.1MG TABLET PO PRN (05:05)
[2022-10-05] MEDS ORDERED: ENOXAPARIN 40MG/0.4ML SYR SUBCUT SCH (09:00)
[2022-10-05] MEDS: PIPERACILLIN/TAZOBACTAM 3.375 G in DEXTROSE 5% WATER 50 ML IV SCH ×2 (09:07→21:43)
[2022-10-05] MEDS: PANTOPRAZOLE SODIUM 40 MG/VIAL IV SCH (09:08)
[2022-10-05] MEDS: DIPHENHYDRAMINE 50MG/ML VIAL IV PRN (16:38)
[2022-10-05] MEDS ORDERED: DIPHENHYDRAMINE 50MG CAPSULE PO PRN (18:30)
[2022-10-05] MEDS ORDERED: CARISOPRODOL 350 MG TABLET PO PRN (21:15)
[2022-10-05] MEDS: IRON SUCROSE COMPLEX 100 MG/5 ML ML IV SCH (21:43)
[2022-10-06] VITALS: BP 154/93
[2022-10-06] MEDS: IPRATROPIUM BROMIDE (0.02%) 0.5MG/2.5ML NEB HHN SCH ×2 (01:20→08:04)
[2022-10-06] MEDS: ALBUTEROL (0.083%) 2.5MG/3ML NEB HHN SCH ×2 (01:20→08:04)
[2022-10-06 04:00] VITALS: BP 155/95
[2022-10-06] MEDS: HYDROCODONE/ACETAMINOPHEN 10/325MG TABLET PO PRN ×2 (04:25→09:36)
[2022-10-06] MEDS: METHYLPREDNISOLONE SOD SUCC 40 MG/ML VIAL IV SCH (06:00)
[2022-10-06 08:00] VITALS: BP 135/83
[2022-10-06 09:36] VITALS: BP 153/95
[2022-10-06] MEDS: PIPERACILLIN/TAZOBACTAM 3.375 G in DEXTROSE 5% WATER 50 ML IV SCH (09:36)
[2022-10-06] MEDS: PANTOPRAZOLE SODIUM 40 MG/VIAL IV SCH (09:36)
[2022-10-06] MEDS ORDERED: VANCOMYCIN 1G PREMIX 200 ML IV NR (10:00)
== END 2022-10-06 11:35 | disposition left against medical advice (07) | DRG 133 ==
LOC: ER 08:03 → EDBEDREQ 10:13 → MICUSO 15:12 → ER 15:50 → MICUNO 10-03 23:40 → 6EST 10-04 14:28
PROVIDERS: ADMIT Internal Medicine; ATTEND Internal Medicine
PROC: 0BH17EZ Insertion of Endotracheal Airway into Trachea, Via Natural or Artificial Opening (ICD-10-PCS; principal; 2022-10-01)
PROC: 5A1945Z Respiratory Ventilation, 24-96 Consecutive Hours (ICD-10-PCS; 2022-10-01)
PROC: 05HM33Z Insertion of Infusion Device into Right Internal Jugular Vein, Percutaneous Approach (ICD-10-PCS; 2022-10-01)
PROC: B543ZZA Ultrasonography of Right Jugular Veins, Guidance (ICD-10-PCS; 2022-10-01)
PROC: 5A1D70Z Performance of Urinary Filtration, Intermittent, Less than 6 Hours Per Day (ICD-10-PCS; 2022-10-02)
PROC: 5A09357 Assistance with Respiratory Ventilation, Less than 24 Consecutive Hours, Continuous Positive Airway Pressure (ICD-10-PCS; 2022-10-03)
PROC: 5A1D70Z Performance of Urinary Filtration, Intermittent, Less than 6 Hours Per Day (ICD-10-PCS; 2022-10-03)
PROC: 5A1D70Z Performance of Urinary Filtration, Intermittent, Less than 6 Hours Per Day (ICD-10-PCS; 2022-10-05)
DX: J96.01 Acute respiratory failure with hypoxia (principal); J68.0 Bronchitis and pneumonitis due to chemicals, gases, fumes and vapors; I13.2 Hypertensive heart and chronic kidney disease with heart failure and with stage 5 chronic kidney disease, or end stage renal disease; N18.6 End stage renal disease; E83.51 Hypocalcemia; D63.1 Anemia in chronic kidney disease; T82.510A Breakdown (mechanical) of surgically created arteriovenous fistula, initial encounter; J96.02 Acute respiratory failure with hypercapnia; I50.32 Chronic diastolic (congestive) heart failure; F17.210 Nicotine dependence, cigarettes, uncomplicated; Y71.2 Prosthetic and other implants, materials and accessory cardiovascular devices associated with adverse incidents; Z53.29 Procedure and treatment not carried out because of patient's decision for other reasons; D72.825 Bandemia; E66.9 Obesity, unspecified; T59.891A Toxic effect of other specified gases, fumes and vapors, accidental (unintentional), initial encounter; E87.5 Hyperkalemia; H54.8 Legal blindness, as defined in USA; J38.7 Other diseases of larynx; L29.9 Pruritus, unspecified; Z91.199 Patient's noncompliance with other medical treatment and regimen due to unspecified reason; Z78.1 Physical restraint status; Z99.2 Dependence on renal dialysis; Y92.89 Other specified places as the place of occurrence of the external cause
CPT/HCPCS: 31500; 36415; 36573; 36600; 71045; 80048; 80053; 80202; 81003; 82330; 82375; 82805; 82962; 83605; 83735; 84100; 84145; 84478; 84484; 85025; 86705; 86709; 86803; 87340; 90935; 93005; 94002; 94003; 94640; 94644; 94660; 99285; C1725; C1760; C1769; C9113; J0692; J0885; J1200; J2060; J2270; J2543; J2704; J2920; J2930; J3010; J3370; J3490; J7050; J7060; P9047; Q0163; A4315

== ENCOUNTER 2022-10-07 12:31 | Inpatient (IN) | payer OTHER ==
[~2022-10-07] VITALS: Ht 152.4 cm; Wt 96.2 kg
[~2022-10-07 12:31] MED LIST changes: +APIX5TAB MT; +DILT300T10 MT
[2022-10-07] MEDS ORDERED: LIDOCAINE HCL/PF 1% 2ML VIAL ONE (13:44)
[2022-10-07] MEDS ORDERED: DEXAMETHASONE 10 MG/ML VIAL IV ONE (13:45)
[2022-10-07] MEDS ORDERED: IPRATROPIUM/ALBUTEROL 0.5-3(2.5)MG/3ML NEB HHN ONE (13:45)
[2022-10-07 14:32] LABS: HEMATOCRIT. 28.8 % (42.0-52.0); HEMOGLOBIN. 9.4 g/dL (14.0-18.0); MEAN CORPUSCULAR VOLUME 95.1 fL (80.0-94.0); MEAN PLATELET VOLUME 8.7 fl (7.4-10.4); PLATELET 214 x1000/uL (130-400); RED BLOOD CELL COUNT 3.03 mill/uL (4.7-6.1); RED CELL DISTRIBUTION WIDTH 21.1 % (11.6-14.6)
[2022-10-07 14:41] LABS: CHLORIDE 98 mEq/L (98-107)
[2022-10-07 14:48] LABS: BG BASE EXCESS -1.2 mmol/L (-2.0-2.0); BG CARBOXYHEMOGLOBIN 1.1 % (0.5-1.5); BG FRACTION INSPIRED OXYGEN 21; BG HCO3 ACT 24.9 mmol/L (22.0-26.0); BG METHEMOGLOBIN 0.6 % (0.0-1.5); BG OXYGEN SATURATION 91.9 % (92.0-98.5); BG OXYHEMOGLOBIN 90.3 % (94.0-97.0); BG PCO2 47.6 mmHg (35.0-45.0); BG PH 7.336 (7.350-7.450); BG PO2 70.4 mmHg (75.0-100.0); BG SAMPLE SITE RIGHT RADIAL; BG TOTAL HEMOGLOBIN 10.4 g/dL (12.0-18.0); BG VENT MODE ROOM AIR
[2022-10-07] MEDS ORDERED: CEFTRIAXONE 1GM PREMIX 50 ML IV ONE (16:45)
[2022-10-07] MEDS ORDERED: ACETAMINOPHEN 325MG TABLET PO ONE (17:30)
[2022-10-07] MEDS ORDERED: BENAZEPRIL 10MG TABLET PO NR (17:30)
[2022-10-07] MEDS ORDERED: CARVEDILOL 6.25 MG TABLET PO NR (17:30)
[2022-10-07 17:40] LABS: PLATELET ESTIMATE NORMAL
[2022-10-07] MEDS ORDERED: HYDROCODONE/ACETAMINOPHEN 10/325MG TABLET PO PRN (20:00)
[2022-10-07] MEDS ORDERED: NALOXONE HCL 0.4MG/ML VIAL IV PRN (20:00)
[2022-10-07 22:00] VITALS: BP 141/90
[2022-10-07 22:04] VITALS: BP 141/90
[2022-10-08] VITALS (15 sets, daily range): BP systolic 117–175; BP diastolic 68–94
[2022-10-08] MEDS: ZOLPIDEM TARTRATE 5MG TABLET PO PRN ×2 (00:50→23:25)
[2022-10-08] MEDS: HYDROCODONE/ACETAMINOPHEN 10/325MG TABLET PO PRN ×3 (00:51→19:05)
[2022-10-08] MEDS: DIPHENHYDRAMINE 50MG CAPSULE PO PRN ×3 (00:57→23:25)
[2022-10-08 06:13] LABS: HEMATOCRIT. 27.4 % (42.0-52.0); HEMOGLOBIN. 8.8 g/dL (14.0-18.0); MEAN CORPUSCULAR HEMOGLOBIN 30.5 pg (28.0-32.0); MEAN PLATELET VOLUME 8.7 fl (7.4-10.4); PLATELET 196 x1000/uL (130-400); RED BLOOD CELL COUNT 2.88 mill/uL (4.7-6.1); RED CELL DISTRIBUTION WIDTH 20.8 % (11.6-14.6)
[2022-10-08] MEDS: BENAZEPRIL 10MG TABLET PO SCH (09:20)
[2022-10-08] MEDS: CARVEDILOL 12.5MG TABLET PO SCH ×2 (09:21→23:25)
[2022-10-08] MEDS: APIXABAN 5 MG TABLET PO SCH ×2 (09:21→18:51)
[2022-10-08] MEDS: CALCIUM ACETATE 667MG CAPSULE PO SCH ×3 (09:21→18:51)
[2022-10-08] MEDS: GUAIFENESIN 600MG ER TABLET PO SCH ×2 (09:21→23:25)
[2022-10-08] MEDS: DILTIAZEM HCL 300MG CAPSULE SR 24HR PO SCH (09:25)
[2022-10-08] MEDS ORDERED: IPRATROPIUM/ALBUTEROL 0.5-3(2.5)MG/3ML NEB HHN PRN (10:30)
[2022-10-08] MEDS: IPRATROPIUM BROMIDE (0.02%) 0.5MG/2.5ML NEB HHN PRN ×3 (11:32→19:46)
[2022-10-08] MEDS: ALBUTEROL (0.083%) 2.5MG/3ML NEB HHN PRN ×3 (11:32→19:47)
[2022-10-08] MEDS ORDERED: RACEPINEPHRINE 2.25% 0.5ML NEB VIAL HHN PRN (13:30)
[2022-10-08 14:02] LABS: PLATELET ESTIMATE NORMAL
[2022-10-08] MEDS: METHYLPREDNISOLONE SOD SUCC 40 MG/ML VIAL IV SCH ×2 (14:26→23:36)
[2022-10-08] MEDS: RACEPINEPHRINE 2.25% 0.5ML NEB VIAL HHN NR ×2 (14:26→14:32)
[2022-10-08] MEDS: CEFEPIME 1GM PREMIX 50 ML IV SCH (14:27)
[2022-10-08] MEDS ORDERED: VANCOMYCIN 1500MG in DEXTROSE 5% WATER 250ML IV NR (15:00)
[2022-10-08 16:18] LABS: CLARITY URINE CLEAR (CLEAR); COLOR URINE YELLOW (YELLOW); KETONES URINE TRACE (NEGATIVE); LEUKOCYTE ESTERASE URINE NEGATIVE (NEGATIVE); NITRITE URINE NEGATIVE (NEGATIVE); OCCULT BLOOD URINE TRACE (NEGATIVE); PH URINE 5.5 (4.5-8.0); PROTEIN URINE 3+ (NEGATIVE); SPECIFIC GRAVITY URINE 1.017 (1.005-1.030); UROBILINOGEN URINE 0.2 E.U./dL (0.2-1.0)
[2022-10-08] MEDS: EPOETIN ALFA-EPBX 4,000 UNIT/ML VIAL SUBCUT SCH (23:33)
[2022-10-09] VITALS (7 sets, daily range): BP systolic 115–139; BP diastolic 63–86
[2022-10-09] MEDS: IPRATROPIUM BROMIDE (0.02%) 0.5MG/2.5ML NEB HHN PRN ×2 (02:18→13:40)
[2022-10-09] MEDS: ALBUTEROL (0.083%) 2.5MG/3ML NEB HHN PRN ×2 (02:31→13:40)
[2022-10-09] MEDS: HYDROCODONE/ACETAMINOPHEN 10/325MG TABLET PO PRN ×4 (02:41→22:01)
[2022-10-09] MEDS: METHYLPREDNISOLONE SOD SUCC 40 MG/ML VIAL IV SCH ×3 (05:10→21:43)
[2022-10-09] MEDS: DILTIAZEM HCL 300MG CAPSULE SR 24HR PO SCH (08:36)
[2022-10-09] MEDS: BENAZEPRIL 10MG TABLET PO SCH (08:37)
[2022-10-09] MEDS: CALCIUM ACETATE 667MG CAPSULE PO SCH ×3 (08:37→18:09)
[2022-10-09] MEDS: APIXABAN 5 MG TABLET PO SCH ×2 (08:38→18:10)
[2022-10-09] MEDS: CARVEDILOL 12.5MG TABLET PO SCH ×2 (08:38→22:01)
[2022-10-09] MEDS: GUAIFENESIN 600MG ER TABLET PO SCH ×2 (08:38→22:00)
[2022-10-09] MEDS: DIPHENHYDRAMINE 50MG CAPSULE PO PRN ×2 (11:36→22:00)
[2022-10-09] MEDS: CEFEPIME 1GM PREMIX 50 ML IV SCH (15:00)
[2022-10-09] MEDS ORDERED: IPRATROPIUM/ALBUTEROL 0.5-3(2.5)MG/3ML NEB HHN SCH (18:00)
[2022-10-09] MEDS: IPRATROPIUM BROMIDE (0.02%) 0.5MG/2.5ML NEB HHN SCH (20:51)
[2022-10-09] MEDS: ALBUTEROL (0.083%) 2.5MG/3ML NEB HHN SCH (20:52)
[2022-10-09] MEDS: EPOETIN ALFA-EPBX 4,000 UNIT/ML VIAL SUBCUT SCH (21:00)
[2022-10-10] VITALS (20 sets, daily range): BP systolic 118–178; BP diastolic 68–100
[2022-10-10] MEDS: ALBUTEROL (0.083%) 2.5MG/3ML NEB HHN SCH ×3 (01:55→14:12)
[2022-10-10] MEDS: IPRATROPIUM BROMIDE (0.02%) 0.5MG/2.5ML NEB HHN SCH ×3 (01:55→14:12)
[2022-10-10] MEDS: METHYLPREDNISOLONE SOD SUCC 40 MG/ML VIAL IV SCH ×2 (06:01→13:10)
[2022-10-10] MEDS: HYDROCODONE/ACETAMINOPHEN 10/325MG TABLET PO PRN (06:26)
[2022-10-10] MEDS ORDERED: ALTEPLASE 2MG/VIAL ITC NR (06:45)
[2022-10-10] MEDS ORDERED: CEFAZOLIN 1000MG PREMIX 50 ML IV NR (07:00)
[2022-10-10 08:44] LABS: HEMOGLOBIN. 9.2 g/dL (14.0-18.0); MEAN CORPUSCULAR HEMOGLOBIN 30.7 pg (28.0-32.0); MEAN PLATELET VOLUME 9.2 fl (7.4-10.4); PLATELET 224 x1000/uL (130-400); RED BLOOD CELL COUNT 2.99 mill/uL (4.7-6.1); RED CELL DISTRIBUTION WIDTH 21.9 % (11.6-14.6)
[2022-10-10 08:46] LABS: INR 1.1
[2022-10-10] MEDS: DILTIAZEM HCL 300MG CAPSULE SR 24HR PO SCH (09:00)
[2022-10-10] MEDS: GUAIFENESIN 600MG ER TABLET PO SCH (09:00)
[2022-10-10] MEDS: CALCIUM ACETATE 667MG CAPSULE PO SCH ×2 (09:00→13:10)
[2022-10-10] MEDS: APIXABAN 5 MG TABLET PO SCH (09:00)
[2022-10-10] MEDS: BENAZEPRIL 10MG TABLET PO SCH (09:00)
[2022-10-10] MEDS: CARVEDILOL 12.5MG TABLET PO SCH (09:00)
[2022-10-10] MEDS ORDERED: HEPARIN 1000 UNITS/ML 10ML ONE (09:05)
[2022-10-10] MEDS ORDERED: IOHEXOL-300 100 ML BOTTLE ONE (09:05)
[2022-10-10] MEDS ORDERED: LIDOCAINE HCL 1% 10 MG/ML 10ML VIAL ONE (09:05)
[2022-10-10] MEDS ORDERED: FENTANYL CITRATE/PF 50MCG/ML 2ML VIAL ONE (10:22)
[2022-10-10] MEDS ORDERED: FENTANYL CITRATE/PF 50MCG/ML 2ML VIAL IV SCH (11:00)
[2022-10-10] MEDS ORDERED: IPRATROPIUM/ALBUTEROL 0.5-3(2.5)MG/3ML NEB HHN PRN (13:00)
[2022-10-10] MEDS ORDERED: P20 MT (13:02)
[2022-10-10] MEDS ORDERED: LEVO250T74 MT (13:02)
[2022-10-10] MEDS: DIPHENHYDRAMINE 50MG CAPSULE PO PRN (13:35)
[2022-10-10] MEDS ORDERED: DIPHENHYDRAMINE 50MG/ML VIAL IV NR (13:45)
[2022-10-10 13:56] LABS: PLATELET ESTIMATE NORMAL
[2022-10-10] MEDS ORDERED: CYCLOBENZAPRINE 10MG TABLET PO SCH (14:00)
[2022-10-10] MEDS: CEFEPIME 1GM PREMIX 50 ML IV SCH (15:00)
[2022-10-10] MEDS ORDERED: IPRATROPIUM/ALBUTEROL 0.5-3(2.5)MG/3ML NEB HHN SCH (18:00)
== END 2022-10-10 15:15 | disposition home or self-care (01) | DRG 180 ==
LOC: ER 12:31 → 7EST 16:36 → EDBEDREQ 16:38 → EDBEDREQTM 16:38 → ENRESERV 20:45
PROVIDERS: ADMIT Internal Medicine; ATTEND Internal Medicine
PROC: 02HV33Z Insertion of Infusion Device into Superior Vena Cava, Percutaneous Approach (ICD-10-PCS; 2022-10-07)
PROC: 5A1D70Z Performance of Urinary Filtration, Intermittent, Less than 6 Hours Per Day (ICD-10-PCS; principal; 2022-10-08)
PROC: 5A1D70Z Performance of Urinary Filtration, Intermittent, Less than 6 Hours Per Day (ICD-10-PCS; 2022-10-10)
PROC: 03WY37Z Revision of Autologous Tissue Substitute in Upper Artery, Percutaneous Approach (ICD-10-PCS; 2022-10-10)
PROC: B5171ZZ Fluoroscopy of Left Subclavian Vein using Low Osmolar Contrast (ICD-10-PCS; 2022-10-10)
PROC: B5181ZZ Fluoroscopy of Superior Vena Cava using Low Osmolar Contrast (ICD-10-PCS; 2022-10-10)
PROC: 3E03317 Introduction of Other Thrombolytic into Peripheral Vein, Percutaneous Approach (ICD-10-PCS; 2022-10-10)
DX: T82.510A Breakdown (mechanical) of surgically created arteriovenous fistula, initial encounter (principal); J96.02 Acute respiratory failure with hypercapnia; A41.9 Sepsis, unspecified organism; I13.2 Hypertensive heart and chronic kidney disease with heart failure and with stage 5 chronic kidney disease, or end stage renal disease; D63.1 Anemia in chronic kidney disease; E83.51 Hypocalcemia; E87.1 Hypo-osmolality and hyponatremia; N18.6 End stage renal disease; J68.0 Bronchitis and pneumonitis due to chemicals, gases, fumes and vapors; I50.9 Heart failure, unspecified; D72.829 Elevated white blood cell count, unspecified; E66.9 Obesity, unspecified; E78.5 Hyperlipidemia, unspecified; F17.210 Nicotine dependence, cigarettes, uncomplicated; H54.8 Legal blindness, as defined in USA; J38.7 Other diseases of larynx; Z68.41 Body mass index [BMI] 40.0-44.9, adult; L29.9 Pruritus, unspecified; Y71.2 Prosthetic and other implants, materials and accessory cardiovascular devices associated with adverse incidents; Z99.2 Dependence on renal dialysis; F14.90 Cocaine use, unspecified, uncomplicated
CPT/HCPCS: 36415; 36600; 36902; 71045; 76937; 80048; 80053; 80202; 81003; 82375; 82805; 83880; 84066; 84145; 84484; 85025; 87070; 90935; 93005; 94640; 94644; 99152; 99153; 99285; C1725; C1766; C1769; J0692; J0696; J0885; J1100; J1200; J1644; J2920; J2997; J3010; J3370; J3490; J7060; Q0163; Q9967; G0500

== ENCOUNTER 2022-10-12 23:07 | Inpatient (IN) | payer MEDICAID, OTHER ==
[~2022-10-12] VITALS: Ht 180.3 cm; Wt 95.3 kg
[~2022-10-12 23:07] MED LIST changes: +LEVO250T74 MT
[2022-10-13 02:41] LABS: HEMATOCRIT. 29.9 % (42.0-52.0); HEMOGLOBIN. 9.6 g/dL (14.0-18.0); MEAN CORPUSCULAR HEMOGLOBIN 30.7 pg (28.0-32.0); MEAN CORPUSCULAR VOLUME 95.5 fL (80.0-94.0); MEAN PLATELET VOLUME 8.8 fl (7.4-10.4); PLATELET 242 x1000/uL (130-400); RED BLOOD CELL COUNT 3.13 mill/uL (4.7-6.1); RED CELL DISTRIBUTION WIDTH 22.8 % (11.6-14.6)
[2022-10-13 02:55] LABS: CHLORIDE 95 mEq/L (98-107)
[2022-10-13 03:38] LABS: PLATELET ESTIMATE NORMAL
[2022-10-13] MEDS ORDERED: IPRATROPIUM/ALBUTEROL 0.5-3(2.5)MG/3ML NEB HHN PRN (10:15)
[2022-10-13 11:46] VITALS: BP 123/69
[2022-10-13 11:58] VITALS: BP 123/69
[2022-10-13] MEDS ORDERED: CEFTRIAXONE 1,000 MG in DEXTROSE 5% WATER 50 ML IV SCH (13:00)
[2022-10-13 14:00] VITALS: BP 107/68
[2022-10-13] MEDS: IPRATROPIUM/ALBUTEROL 0.5-3(2.5)MG/3ML NEB HHN SCH ×2 (15:24→20:19)
[2022-10-13 16:00] VITALS: BP 129/92
[2022-10-13 20:00] VITALS: BP 136/85
[2022-10-13] MEDS: ONDANSETRON HCL 4MG/2ML INJ IV PRN (20:48)
[2022-10-13] MEDS: DIPHENHYDRAMINE 50MG CAPSULE PO PRN (20:49)
[2022-10-13 22:00] VITALS: BP 146/92
[2022-10-14] VITALS (22 sets, daily range): BP systolic 116–147; BP diastolic 32–110
[2022-10-14] MEDS: IPRATROPIUM/ALBUTEROL 0.5-3(2.5)MG/3ML NEB HHN SCH ×4 (01:57→21:14)
[2022-10-14 08:49] LABS: HEMATOCRIT. 31.4 % (42.0-52.0); HEMOGLOBIN. 9.8 g/dL (14.0-18.0); MEAN CORPUSCULAR HEMOGLOBIN 29.9 pg (28.0-32.0); MEAN CORPUSCULAR VOLUME 95.7 fL (80.0-94.0); MEAN PLATELET VOLUME 9.2 fl (7.4-10.4); PLATELET 216 x1000/uL (130-400); RED BLOOD CELL COUNT 3.28 mill/uL (4.7-6.1); RED CELL DISTRIBUTION WIDTH 21.1 % (11.6-14.6)
[2022-10-14 08:58] LABS: INR 1.1
[2022-10-14 09:12] LABS: CHLORIDE 96 mEq/L (98-107)
[2022-10-14 09:52] LABS: PLATELET ESTIMATE NORMAL
[2022-10-14] MEDS: FOLIC ACID/VITAMIN B COMP W-C TABLET PO SCH (09:52)
[2022-10-14] MEDS: CALCIUM ACETATE 667MG CAPSULE PO SCH ×3 (09:52→17:00)
[2022-10-14] MEDS: OMEPRAZOLE 20MG CAPSULE EXTENDED RELEASE PO SCH (09:53)
[2022-10-14] MEDS ORDERED: MAGNESIUM/ALUMINUM HYDROXIDE/SIMETHICONE 30ML UDC PO PRN (10:00)
[2022-10-14] MEDS ORDERED: SODIUM POLYSTYRENE SULFONATE 15 G/60 ML BOT PO NR (10:00)
[2022-10-14] MEDS ORDERED: INSULIN REGULAR (HUMULIN R) 300UNITS/3ML VIAL IV NR (10:00)
[2022-10-14] MEDS ORDERED: DEXTROSE 50% WATER 50ML SYRINGE IV NR (10:00)
[2022-10-14] MEDS ORDERED: SODIUM BICARBONATE 8.4% 1 MEQ/ML 50ML SYR IV NR (10:00)
[2022-10-14] MEDS ORDERED: CALCIUM GLUCONATE 1,000 MG in DEXT 5% WATER 90 ML IV ONE (10:00)
[2022-10-14] MEDS ORDERED: NALOXONE HCL 0.4MG/ML VIAL IV PRN (10:30)
[2022-10-14] MEDS ORDERED: VANCOMYCIN 1G PREMIX 200 ML IV SCH (10:45)
[2022-10-14] MEDS: PIPERACILLIN/TAZOBACTAM 3.375 G in DEXTROSE 5% WATER 50 ML IV SCH ×2 (11:00→21:06)
[2022-10-14] MEDS: METHYLPREDNISOLONE SOD SUCC 40 MG/ML VIAL IV SCH ×2 (11:28→17:00)
[2022-10-14] MEDS ORDERED: LIDOCAINE HCL/PF 1% 10 MG/ML 5ML VIAL ONE (11:29)
[2022-10-14] MEDS: ENOXAPARIN 30MG/0.3ML SYR SUBCUT SCH (11:31)
[2022-10-14] MEDS ORDERED: CALCIUM GLUCONATE 1GM PREMIX 50 ML IV NR (12:00)
[2022-10-14] MEDS ORDERED: VANCOMYCIN 2,000 MG in DEXT 5% WATER 500 ML IV NR (13:00)
[2022-10-14] MEDS: HYDROCODONE/ACETAMINOPHEN 5/325MG TABLET PO PRN ×2 (13:36→22:37)
[2022-10-14] MEDS ORDERED: VANCOMYCIN 750MG PREMIX 150 ML IV NR (21:00)
[2022-10-14] MEDS: GUAIFENESIN 600MG ER TABLET PO SCH (21:05)
[2022-10-14] MEDS: DIPHENHYDRAMINE 50MG CAPSULE PO PRN (21:05)
[2022-10-14 21:07] LABS: HEPATITIS B SURFACE ANTIGEN NEGATIVE
[2022-10-15] VITALS (11 sets, daily range): BP systolic 117–172; BP diastolic 52–91
[2022-10-15] MEDS: METHYLPREDNISOLONE SOD SUCC 40 MG/ML VIAL IV SCH ×2 (02:14→09:07)
[2022-10-15] MEDS: IPRATROPIUM/ALBUTEROL 0.5-3(2.5)MG/3ML NEB HHN SCH ×4 (02:23→20:50)
[2022-10-15] MEDS: HYDROCODONE/ACETAMINOPHEN 5/325MG TABLET PO PRN ×3 (05:14→22:45)
[2022-10-15] MEDS: OMEPRAZOLE 20MG CAPSULE EXTENDED RELEASE PO SCH (06:30)
[2022-10-15 07:32] LABS: MEAN CORPUSCULAR HEMOGLOBIN 29.7 pg (28.0-32.0); MEAN CORPUSCULAR VOLUME 94.2 fL (80.0-94.0); MEAN PLATELET VOLUME 9.4 fl (7.4-10.4); PLATELET 179 x1000/uL (130-400); RED BLOOD CELL COUNT 2.75 mill/uL (4.7-6.1); RED CELL DISTRIBUTION WIDTH 21.6 % (11.6-14.6)
[2022-10-15 07:37] LABS: HEMATOCRIT. 25.9 % (42.0-52.0); HEMOGLOBIN. 8.2 g/dL (14.0-18.0)
[2022-10-15] MEDS: FOLIC ACID/VITAMIN B COMP W-C TABLET PO SCH (09:07)
[2022-10-15] MEDS: ENOXAPARIN 30MG/0.3ML SYR SUBCUT SCH (09:08)
[2022-10-15] MEDS: GUAIFENESIN 600MG ER TABLET PO SCH ×2 (09:08→22:45)
[2022-10-15] MEDS: CALCIUM ACETATE 667MG CAPSULE PO SCH ×3 (09:08→17:48)
[2022-10-15] MEDS: PIPERACILLIN/TAZOBACTAM 3.375 G in DEXTROSE 5% WATER 50 ML IV SCH ×2 (09:37→22:46)
[2022-10-15 10:42] LABS: PLATELET ESTIMATE NORMAL
[2022-10-15] MEDS: DIPHENHYDRAMINE 50MG CAPSULE PO PRN (17:48)
[2022-10-16] VITALS (22 sets, daily range): BP systolic 101–167; BP diastolic 54–99
[2022-10-16] MEDS: IPRATROPIUM/ALBUTEROL 0.5-3(2.5)MG/3ML NEB HHN SCH ×4 (01:57→20:17)
[2022-10-16] MEDS: OMEPRAZOLE 20MG CAPSULE EXTENDED RELEASE PO SCH ×2 (07:51→11:59)
[2022-10-16] MEDS: DIPHENHYDRAMINE 50MG CAPSULE PO PRN ×2 (07:52→22:33)
[2022-10-16] MEDS: PIPERACILLIN/TAZOBACTAM 3.375 G in DEXTROSE 5% WATER 50 ML IV SCH ×2 (11:00→21:07)
[2022-10-16] MEDS: GUAIFENESIN 600MG ER TABLET PO SCH ×2 (11:59→21:06)
[2022-10-16] MEDS: PREDNISONE 20MG TABLET PO SCH (11:59)
[2022-10-16] MEDS: IRON SUCROSE COMPLEX 100 MG/5 ML ML IV SCH (11:59)
[2022-10-16] MEDS: ENOXAPARIN 30MG/0.3ML SYR SUBCUT SCH (12:00)
[2022-10-16] MEDS: FOLIC ACID/VITAMIN B COMP W-C TABLET PO SCH (12:35)
[2022-10-16] MEDS: CALCIUM ACETATE 667MG CAPSULE PO SCH ×3 (12:35→18:49)
[2022-10-16] MEDS: HYDROCODONE/ACETAMINOPHEN 5/325MG TABLET PO PRN ×2 (12:36→21:07)
[2022-10-16 19:08] LABS: MEAN CORPUSCULAR HEMOGLOBIN 29.9 pg (28.0-32.0); MEAN CORPUSCULAR VOLUME 93.9 fL (80.0-94.0); MEAN PLATELET VOLUME 9.5 fl (7.4-10.4); PLATELET 106 x1000/uL (130-400); RED BLOOD CELL COUNT 1.69 mill/uL (4.7-6.1); RED CELL DISTRIBUTION WIDTH 21.7 % (11.6-14.6)
[2022-10-16 20:00] LABS: HEMATOCRIT. 15.8 % (42.0-52.0)
[2022-10-16] MEDS ORDERED: VANCOMYCIN 750MG PREMIX 150 ML IV SCH (21:00)
[2022-10-16] MEDS: EPOETIN ALFA-EPBX 4,000 UNIT/ML VIAL SUBCUT SCH (22:33)
[2022-10-16 23:30] LABS: NUCLEATED RED BLOOD CELLS 1 /100 WBC
[2022-10-16 23:31] LABS: PLATELET ESTIMATE DECREASED
[2022-10-17] VITALS (13 sets, daily range): BP systolic 71–164; BP diastolic 50–81
[2022-10-17] MEDS ORDERED: SODIUM POLYSTYRENE SULFONATE 15 G/60 ML BOT PO NR
[2022-10-17] MEDS: IPRATROPIUM/ALBUTEROL 0.5-3(2.5)MG/3ML NEB HHN SCH ×4 (02:12→20:55)
[2022-10-17 07:18] LABS: HEMATOCRIT. 23.4 % (42.0-52.0); HEMOGLOBIN. 7.7 g/dL (14.0-18.0); MEAN CORPUSCULAR HEMOGLOBIN 29.8 pg (28.0-32.0); MEAN CORPUSCULAR VOLUME 90.9 fL (80.0-94.0); MEAN PLATELET VOLUME 8.8 fl (7.4-10.4); PLATELET 151 x1000/uL (130-400); RED BLOOD CELL COUNT 2.57 mill/uL (4.7-6.1); RED CELL DISTRIBUTION WIDTH 21.8 % (11.6-14.6)
[2022-10-17] MEDS: CALCIUM ACETATE 667MG CAPSULE PO SCH ×3 (09:00→18:55)
[2022-10-17] MEDS: PREDNISONE 20MG TABLET PO SCH (10:18)
[2022-10-17] MEDS: ENOXAPARIN 30MG/0.3ML SYR SUBCUT SCH (10:18)
[2022-10-17] MEDS: GUAIFENESIN 600MG ER TABLET PO SCH ×2 (10:19→20:57)
[2022-10-17] MEDS: FOLIC ACID/VITAMIN B COMP W-C TABLET PO SCH (10:19)
[2022-10-17] MEDS: IRON SUCROSE COMPLEX 100 MG/5 ML ML IV SCH (10:20)
[2022-10-17] MEDS: PIPERACILLIN/TAZOBACTAM 3.375 G in DEXTROSE 5% WATER 50 ML IV SCH ×2 (10:23→20:58)
[2022-10-17] MEDS: HYDROCODONE/ACETAMINOPHEN 5/325MG TABLET PO PRN (19:04)
[2022-10-17] MEDS: DIPHENHYDRAMINE 50MG CAPSULE PO PRN (21:00)
[2022-10-17] MEDS: EPOETIN ALFA-EPBX 4,000 UNIT/ML VIAL SUBCUT SCH (21:00)
[2022-10-17] MEDS ORDERED: DIPHENHYDRAMINE 50MG/ML VIAL IV NR (23:30)
[2022-10-18] VITALS (9 sets, daily range): BP systolic 125–163; BP diastolic 68–95
[2022-10-18] MEDS: IPRATROPIUM/ALBUTEROL 0.5-3(2.5)MG/3ML NEB HHN SCH (01:53)
[2022-10-18] MEDS: DIPHENHYDRAMINE 50MG CAPSULE PO PRN ×2 (06:20→18:05)
[2022-10-18] MEDS: OMEPRAZOLE 20MG CAPSULE EXTENDED RELEASE PO SCH (06:20)
[2022-10-18] MEDS: HYDROCODONE/ACETAMINOPHEN 5/325MG TABLET PO PRN ×2 (06:20→16:34)
[2022-10-18 06:39] LABS: HEMATOCRIT. 21.5 % (42.0-52.0); HEMOGLOBIN. 7.1 g/dL (14.0-18.0); MEAN CORPUSCULAR HEMOGLOBIN 29.6 pg (28.0-32.0); MEAN CORPUSCULAR VOLUME 90.1 fL (80.0-94.0); MEAN PLATELET VOLUME 8.8 fl (7.4-10.4); PLATELET 142 x1000/uL (130-400); RED BLOOD CELL COUNT 2.38 mill/uL (4.7-6.1); RED CELL DISTRIBUTION WIDTH 21.4 % (11.6-14.6)
[2022-10-18 07:03] LABS: NUCLEATED RED BLOOD CELLS 1 /100 WBC; PLATELET ESTIMATE NORMAL
[2022-10-18] MEDS ORDERED: PREDNISONE 20MG TABLET PO SCH (09:00)
[2022-10-18] MEDS: PIPERACILLIN/TAZOBACTAM 3.375 G in DEXTROSE 5% WATER 50 ML IV SCH ×2 (09:13→20:37)
[2022-10-18] MEDS: FOLIC ACID/VITAMIN B COMP W-C TABLET PO SCH (09:14)
[2022-10-18] MEDS: GUAIFENESIN 600MG ER TABLET PO SCH ×2 (09:14→20:37)
[2022-10-18] MEDS: IRON SUCROSE COMPLEX 100 MG/5 ML ML IV SCH (09:14)
[2022-10-18] MEDS: ENOXAPARIN 30MG/0.3ML SYR SUBCUT SCH (09:15)
[2022-10-18] MEDS: CALCIUM ACETATE 667MG CAPSULE PO SCH ×3 (09:16→18:04)
[2022-10-18 13:33] LABS: NUCLEATED RED BLOOD CELLS 1 /100 WBC; PLATELET ESTIMATE NORMAL
[2022-10-18] MEDS: AMLODIPINE 10MG TABLET PO SCH (16:34)
[2022-10-18] MEDS ORDERED: DIPHENHYDRAMINE 50MG/ML VIAL IV NR (18:30)
[2022-10-18] MEDS: EPOETIN ALFA-EPBX 4,000 UNIT/ML VIAL SUBCUT SCH (20:36)
[2022-10-19] VITALS: BP 138/82
[2022-10-19] MEDS ORDERED: IPRATROPIUM/ALBUTEROL 0.5-3(2.5)MG/3ML NEB HHN PRN (03:45)
[2022-10-19 04:00] VITALS: BP 150/81
[2022-10-19] MEDS: OMEPRAZOLE 20MG CAPSULE EXTENDED RELEASE PO SCH (05:56)
[2022-10-19] MEDS: DIPHENHYDRAMINE 50MG CAPSULE PO PRN ×2 (06:04→14:59)
[2022-10-19] MEDS: HYDROCODONE/ACETAMINOPHEN 5/325MG TABLET PO PRN ×3 (06:05→23:08)
[2022-10-19 08:00] VITALS: BP 135/55
[2022-10-19] MEDS: GUAIFENESIN 600MG ER TABLET PO SCH ×2 (08:50→21:25)
[2022-10-19] MEDS: PIPERACILLIN/TAZOBACTAM 3.375 G in DEXTROSE 5% WATER 50 ML IV SCH ×2 (08:50→21:18)
[2022-10-19] MEDS: FOLIC ACID/VITAMIN B COMP W-C TABLET PO SCH (08:50)
[2022-10-19] MEDS: IRON SUCROSE COMPLEX 100 MG/5 ML ML IV SCH (08:51)
[2022-10-19] MEDS: PREDNISONE 10MG TABLET PO SCH (08:51)
[2022-10-19] MEDS: CALCIUM ACETATE 667MG CAPSULE PO SCH ×3 (09:12→17:29)
[2022-10-19] MEDS: AMLODIPINE 10MG TABLET PO SCH (09:13)
[2022-10-19] MEDS: ENOXAPARIN 30MG/0.3ML SYR SUBCUT SCH (11:27)
[2022-10-19 12:00] VITALS: BP 132/76
[2022-10-19 16:00] VITALS: BP 102/59
[2022-10-19 20:00] VITALS: BP 145/70
[2022-10-19] MEDS: EPOETIN ALFA-EPBX 4,000 UNIT/ML VIAL SUBCUT SCH (21:00)
[2022-10-19] MEDS: IPRATROPIUM/ALBUTEROL 0.5-3(2.5)MG/3ML NEB HHN PRN (21:41)
[2022-10-20] VITALS (17 sets, daily range): BP systolic 112–198; BP diastolic 52–91
[2022-10-20] MEDS: DIPHENHYDRAMINE 50MG CAPSULE PO PRN (00:26)
[2022-10-20] MEDS: IPRATROPIUM/ALBUTEROL 0.5-3(2.5)MG/3ML NEB HHN PRN ×2 (02:20→21:03)
[2022-10-20] MEDS: OMEPRAZOLE 20MG CAPSULE EXTENDED RELEASE PO SCH (06:40)
[2022-10-20 07:19] LABS: MEAN CORPUSCULAR HEMOGLOBIN 29.2 pg (28.0-32.0); MEAN CORPUSCULAR VOLUME 91.6 fL (80.0-94.0); MEAN PLATELET VOLUME 9.3 fl (7.4-10.4); PLATELET 146 x1000/uL (130-400); RED BLOOD CELL COUNT 2.23 mill/uL (4.7-6.1); RED CELL DISTRIBUTION WIDTH 22.1 % (11.6-14.6)
[2022-10-20 07:56] LABS: HEMATOCRIT. 20.5 % (42.0-52.0); HEMOGLOBIN. 6.5 g/dL (14.0-18.0)
[2022-10-20] MEDS: PREDNISONE 10MG TABLET PO SCH (09:00)
[2022-10-20] MEDS: FOLIC ACID/VITAMIN B COMP W-C TABLET PO SCH (09:00)
[2022-10-20] MEDS: AMLODIPINE 10MG TABLET PO SCH (09:00)
[2022-10-20] MEDS: CALCIUM ACETATE 667MG CAPSULE PO SCH ×3 (09:00→18:32)
[2022-10-20] MEDS: GUAIFENESIN 600MG ER TABLET PO SCH ×2 (09:00→21:43)
[2022-10-20 09:51] LABS: PLATELET ESTIMATE NORMAL
[2022-10-20] MEDS: ENOXAPARIN 30MG/0.3ML SYR SUBCUT SCH (10:00)
[2022-10-20] MEDS ORDERED: HEPARIN 1000 UNITS/ML 10ML ONE (12:38)
[2022-10-20] MEDS ORDERED: LIDOCAINE HCL 1% 10 MG/ML 10ML VIAL ONE ×2 (12:38→12:41)
[2022-10-20] MEDS: CEFEPIME 1,000 MG in DEXTROSE 5% WATER 50 ML IV SCH (13:00)
[2022-10-20] MEDS: ONDANSETRON HCL 4MG/2ML INJ IV PRN (16:28)
[2022-10-20] MEDS: HYDROCODONE/ACETAMINOPHEN 5/325MG TABLET PO PRN (16:29)
[2022-10-20] MEDS ORDERED: VANCOMYCIN 500MG PREMIX 100 ML IV SCH (21:00)
[2022-10-20 21:30] LABS: HEMATOCRIT 21.1 % (42.0-52.0)
[2022-10-20 21:40] LABS: HEMOGLOBIN 6.5 g/dL (14.0-18.0)
[2022-10-20] MEDS: EPOETIN ALFA-EPBX 4,000 UNIT/ML VIAL SUBCUT SCH (21:43)
[2022-10-20] MEDS: IRON SUCROSE COMPLEX 100 MG/5 ML ML IV SCH (22:37)
[2022-10-21] VITALS (19 sets, daily range): BP systolic 102–158; BP diastolic 49–86
[2022-10-21 05:17] LABS: HEMATOCRIT 30.4 % (42.0-52.0); HEMOGLOBIN 9.2 g/dL (14.0-18.0)
[2022-10-21] MEDS: OMEPRAZOLE 20MG CAPSULE EXTENDED RELEASE PO SCH (06:01)
[2022-10-21] MEDS: ONDANSETRON HCL 4MG/2ML INJ IV PRN (09:49)
[2022-10-21] MEDS: GUAIFENESIN 600MG ER TABLET PO SCH ×2 (09:49→21:56)
[2022-10-21] MEDS: METOPROLOL TARTRATE 25MG TABLET PO SCH ×2 (09:49→21:56)
[2022-10-21] MEDS: CALCIUM ACETATE 667MG CAPSULE PO SCH ×3 (09:49→17:00)
[2022-10-21] MEDS: FOLIC ACID/VITAMIN B COMP W-C TABLET PO SCH (09:49)
[2022-10-21] MEDS: AMLODIPINE 10MG TABLET PO SCH (09:49)
[2022-10-21] MEDS: HYDROCODONE/ACETAMINOPHEN 5/325MG TABLET PO PRN (11:15)
[2022-10-21] MEDS: CEFEPIME 1,000 MG in DEXTROSE 5% WATER 50 ML IV SCH (13:32)
[2022-10-21] MEDS: DIPHENHYDRAMINE 50MG CAPSULE PO PRN ×2 (14:58→21:56)
[2022-10-21 16:41] LABS: HEMATOCRIT 26.2 % (42.0-52.0); HEMOGLOBIN 8.2 g/dL (14.0-18.0)
[2022-10-21] MEDS ORDERED: NALOXONE HCL 0.4MG/ML VIAL IV PRN (17:15)
[2022-10-21] MEDS: IRON SUCROSE COMPLEX 100 MG/5 ML ML IV SCH ×2 (21:00→21:57)
[2022-10-21] MEDS: EPOETIN ALFA-EPBX 4,000 UNIT/ML VIAL SUBCUT SCH (21:57)
[2022-10-22] VITALS: BP 107/55
[2022-10-22 00:15] LABS: CREATINE KINASE 49 IU/L (39-308); CREATINE KINASE MB FRACTION 3.2 ng/mL (0.5-3.6)
[2022-10-22 04:00] VITALS: BP 147/84
[2022-10-22] MEDS: OMEPRAZOLE 20MG CAPSULE EXTENDED RELEASE PO SCH (05:53)
[2022-10-22 08:00] VITALS: BP 143/58
[2022-10-22] MEDS: FOLIC ACID/VITAMIN B COMP W-C TABLET PO SCH (09:00)
[2022-10-22] MEDS: CALCIUM ACETATE 667MG CAPSULE PO SCH (09:04)
[2022-10-22] MEDS: GUAIFENESIN 600MG ER TABLET PO SCH (09:04)
[2022-10-22] MEDS: METOPROLOL TARTRATE 25MG TABLET PO SCH (09:14)
[2022-10-22] MEDS: AMLODIPINE 10MG TABLET PO SCH (09:15)
[2022-10-22 09:16] VITALS: BP 143/58
[2022-10-22] MEDS: HYDROCODONE/ACETAMINOPHEN 5/325MG TABLET PO PRN (09:16)
[2022-10-22] MEDS: IPRATROPIUM/ALBUTEROL 0.5-3(2.5)MG/3ML NEB HHN PRN (09:41)
== END 2022-10-22 12:15 | disposition left against medical advice (07) | DRG 466 ==
LOC: ER 23:07 → 5EST 10-13 06:03 → EDBEDREQTM 10-13 06:27 → EDBEDREQSVC 10-13 07:15 → 7EST 10-17 17:28
PROVIDERS: ADMIT Internal Medicine; ATTEND Internal Medicine
PROC: 5A09357 Assistance with Respiratory Ventilation, Less than 24 Consecutive Hours, Continuous Positive Airway Pressure (ICD-10-PCS; 2022-10-13)
PROC: 5A1D70Z Performance of Urinary Filtration, Intermittent, Less than 6 Hours Per Day (ICD-10-PCS; 2022-10-13)
PROC: 02HV33Z Insertion of Infusion Device into Superior Vena Cava, Percutaneous Approach (ICD-10-PCS; 2022-10-13)
PROC: B548ZZA Ultrasonography of Superior Vena Cava, Guidance (ICD-10-PCS; 2022-10-13)
PROC: 5A1D70Z Performance of Urinary Filtration, Intermittent, Less than 6 Hours Per Day (ICD-10-PCS; 2022-10-14)
PROC: 05HY33Z Insertion of Infusion Device into Upper Vein, Percutaneous Approach (ICD-10-PCS; 2022-10-14)
PROC: 30243N1 Transfusion of Nonautologous Red Blood Cells into Central Vein, Percutaneous Approach (ICD-10-PCS; principal; 2022-10-16)
PROC: 5A1D70Z Performance of Urinary Filtration, Intermittent, Less than 6 Hours Per Day (ICD-10-PCS; 2022-10-16)
PROC: 5A1D70Z Performance of Urinary Filtration, Intermittent, Less than 6 Hours Per Day (ICD-10-PCS; 2022-10-17)
PROC: 0JH63XZ Insertion of Tunneled Vascular Access Device into Chest Subcutaneous Tissue and Fascia, Percutaneous Approach (ICD-10-PCS; 2022-10-20)
PROC: 02H633Z Insertion of Infusion Device into Right Atrium, Percutaneous Approach (ICD-10-PCS; 2022-10-20)
PROC: B518YZA Fluoroscopy of Superior Vena Cava using Other Contrast, Guidance (ICD-10-PCS; 2022-10-20)
PROC: 5A1D70Z Performance of Urinary Filtration, Intermittent, Less than 6 Hours Per Day (ICD-10-PCS; 2022-10-21)
DX: T82.510A Breakdown (mechanical) of surgically created arteriovenous fistula, initial encounter (principal); N18.6 End stage renal disease; J96.00 Acute respiratory failure, unspecified whether with hypoxia or hypercapnia; A41.9 Sepsis, unspecified organism; I13.2 Hypertensive heart and chronic kidney disease with heart failure and with stage 5 chronic kidney disease, or end stage renal disease; I47.20 Ventricular tachycardia, unspecified; D63.1 Anemia in chronic kidney disease; E83.51 Hypocalcemia; J44.1 Chronic obstructive pulmonary disease with (acute) exacerbation; Z99.2 Dependence on renal dialysis; K21.9 Gastro-esophageal reflux disease without esophagitis; I50.9 Heart failure, unspecified; H54.8 Legal blindness, as defined in USA; E87.5 Hyperkalemia; F14.90 Cocaine use, unspecified, uncomplicated; J38.7 Other diseases of larynx; Z20.822 Contact with and (suspected) exposure to COVID-19; F17.210 Nicotine dependence, cigarettes, uncomplicated; Y71.2 Prosthetic and other implants, materials and accessory cardiovascular devices associated with adverse incidents; Z91.199 Patient's noncompliance with other medical treatment and regimen due to unspecified reason
CPT/HCPCS: 36415; 36556; 36558; 36573; 71045; 76937; 77001; 80048; 80053; 80202; 82550; 82553; 83605; 84145; 84484; 85014; 85018; 85025; 86705; 86709; 86803; 86850; 86900; 86920; 87070; 87340; 87426; 90935; 93971; 94640; 94660; 99285; C1725; C1752; C1887; C1893; J0610; J0692; J0696; J0885; J1200; J1644; J1650; J1815; J2405; J2543; J2920; J3370; J3490; J7060; J7512; P9016; Q0163

== ENCOUNTER 2023-06-05 10:09 | Inpatient (IN) | payer MEDICAID, OTHER ==
[~2023-06-05] VITALS: Ht 180.3 cm; Wt 83.9 kg
[~2023-06-05 10:09] MED LIST changes: -APIX5TAB MT; -LEVO250T74 MT
[2023-06-05 16:26] LABS: HEMATOCRIT. 25.2 % (42.0-52.0); HEMOGLOBIN. 7.9 g/dL (14.0-18.0); MEAN CORPUSCULAR HEMOGLOBIN 31.2 pg (28.0-32.0); MEAN CORPUSCULAR HGB CONC 31.4 g/dL (31.0-37.0); MEAN CORPUSCULAR VOLUME 99.3 fL (80.0-94.0); MEAN PLATELET VOLUME 8.9 fl (7.4-10.4); PLATELET 218 x1000/uL (130-400); RED BLOOD CELL COUNT 2.54 mill/uL (4.7-6.1); RED CELL DISTRIBUTION WIDTH 19.8 % (11.6-14.6); WHITE BLOOD COUNT 5.4 x1000/uL (4.5-11.0)
[2023-06-05 16:27] LABS: DIFFERENTIAL COMMENT 1
[2023-06-05 16:44] LABS: ANISOCYTOSIS 2+; PLATELET ESTIMATE NORMAL
[2023-06-05 16:46] LABS: ALANINE AMINOTRANSFERASE 15 IU/L (10-49); ASPARTATE AMINOTRANSFERASE 23 IU/L (<34); BILIRUBIN TOTAL < 0.2 mg/dL (0.1-1.0); CALCIUM 6.9 mg/dL (8.7-10.4); CARBON DIOXIDE 19 mEq/L (21-32); CHLORIDE 100 mEq/L (98-107); GLUCOSE 79 mg/dL (70-105); PROTEIN TOTAL 6.3 g/dL (6.0-8.3); SODIUM 138 mEq/L (136-145); TROPONIN I HIGH SENSITIVITY 26 ng/L (3.0-53); UREA NITROGEN BLOOD 76 mg/dL (9-23)
[2023-06-05 17:09] LABS: CREATININE 12.9 mg/dL (0.6-1.3); POTASSIUM 6.8 mEq/L (3.5-5.1)
[2023-06-05] MEDS ORDERED: CALCIUM GLUCONATE 100MG/ML 10ML VIAL IV SCH (18:00)
[2023-06-05] MEDS ORDERED: SODIUM BICARBONATE 8.4% 1 MEQ/ML 50ML SYR IV SCH (18:00)
[2023-06-05] MEDS ORDERED: INSULIN REGULAR (HUMULIN R) 300UNITS/3ML VIAL IV SCH (18:00)
[2023-06-05] MEDS ORDERED: DEXTROSE 50% WATER 50ML SYRINGE IV SCH (18:00)
[2023-06-05] MEDS ORDERED: ALBUTEROL (0.083%) 2.5MG/3ML NEB HHN SCH (18:00)
[2023-06-05] MEDS ORDERED: MORPHINE SULFATE 2 MG/ML CPJ (NOT FOR IM USE) IV ONE (18:15)
[2023-06-05] MEDS ORDERED: DIPHENHYDRAMINE 50MG/ML VIAL IV ONE (18:15)
[2023-06-05 19:25] VITALS: PULSE 94; RESP 20; O2SAT 99
[2023-06-05] MEDS ORDERED: SODIUM POLYSTYRENE SULFONATE 15 G/60 ML BOT PO ONE (20:45)
[2023-06-05 21:58] LABS: TROPONIN I HIGH SENSITIVITY 28 ng/L (3.0-53)
[2023-06-06] VITALS (11 sets, daily range): BP systolic 124–155; BP diastolic 66–95; PULSE 70–98; RESP 18–20; TEMP 97.1–99.1
[2023-06-06] MEDS: OMEPRAZOLE 20MG CAPSULE EXTENDED RELEASE PO SCH (06:55)
[2023-06-06] MEDS: CALCIUM ACETATE 667MG CAPSULE PO SCH ×3 (08:16→17:22)
[2023-06-06] MEDS: HYDROCODONE/ACETAMINOPHEN 10/325MG TABLET PO PRN ×3 (08:18→20:54)
[2023-06-06 10:27] LABS: BASOPHILS % 2.1 % (0.0-2.0); EOSINOPHILS % 1.7 % (0.0-5.0); HEMATOCRIT. 25.6 % (42.0-52.0); HEMOGLOBIN. 8.2 g/dL (14.0-18.0); LYMPHOCYTES % 12.3 % (20.0-50.0); MEAN CORPUSCULAR HEMOGLOBIN 30.6 pg (28.0-32.0); MEAN CORPUSCULAR VOLUME 95.4 fL (80.0-94.0); MONOCYTES % 14.4 % (2.0-8.0); NEUTROPHILS % 69.5 % (40.0-76.0); PLATELET 227 x1000/uL (130-400); RED BLOOD CELL COUNT 2.68 mill/uL (4.7-6.1); RED CELL DISTRIBUTION WIDTH 19.8 % (11.6-14.6); WHITE BLOOD COUNT 3.5 x1000/uL (4.5-11.0)
[2023-06-06 10:57] LABS: ALANINE AMINOTRANSFERASE 17 IU/L (10-49); ALBUMIN 4.5 g/dL (3.2-4.8); ASPARTATE AMINOTRANSFERASE 24 IU/L (<34); BILIRUBIN TOTAL 0.2 mg/dL (0.1-1.0); CALCIUM 7.9 mg/dL (8.7-10.4); CARBON DIOXIDE 28 mEq/L (21-32); CHLORIDE 96 mEq/L (98-107); GLUCOSE 159 mg/dL (70-105); PHOSPHORUS 5.3 mg/dL (2.5-4.9); POTASSIUM 3.9 mEq/L (3.5-5.1); PROTEIN TOTAL 7.5 g/dL (6.0-8.3); SODIUM 140 mEq/L (136-145); UREA NITROGEN BLOOD 61 mg/dL (9-23)
[2023-06-06] MEDS: CARVEDILOL 12.5MG TABLET PO SCH ×2 (11:06→17:23)
[2023-06-06] MEDS: DIPHENHYDRAMINE 50MG CAPSULE PO PRN ×2 (11:06→17:22)
[2023-06-06 11:11] LABS: CREATININE 8.5 mg/dL (0.6-1.3)
[2023-06-06] MEDS ORDERED: NALOXONE HCL 0.4MG/ML VIAL IV PRN (16:00)
[2023-06-06] MEDS ORDERED: DICL100G58 TP (16:55)
[2023-06-06] MEDS ORDERED: MELO-106 PO (16:55)
[2023-06-06] MEDS ORDERED: CYCL10TA21 PO (16:55)
[2023-06-06] MEDS ORDERED: DIPH50CA38 PO (17:00)
[2023-06-06] MEDS ORDERED: DOCU250C14 PO (17:00)
[2023-06-06 17:03] LABS: HEPATITIS A AB IGM NEGATIVE (Negative); HEPATITIS B CORE AB IGM NEGATIVE (Negative); HEPATITIS B SURFACE ANTIGEN NEGATIVE (Negative); HEPATITIS C AB NON REACTIVE (Neg) (Negative)
[2023-06-06] MEDS: ONDANSETRON HCL 4MG/2ML INJ IV PRN (20:43)
[2023-06-06] MEDS: ATORVASTATIN CALCIUM 40MG TABLET PO SCH (20:43)
[2023-06-06] MEDS ORDERED: EPOETIN ALFA 4000UNITS/ML VIAL SUBCUT NR (21:00)
[2023-06-06] MEDS: ALBUTEROL (0.083%) 2.5MG/3ML NEB HHN PRN (23:56)
[2023-06-07] VITALS (8 sets, daily range): BP systolic 32–141; BP diastolic 62–78; PULSE 76–81; RESP 18–20; TEMP 97.5–98.6
[2023-06-07] MEDS: DIPHENHYDRAMINE 50MG CAPSULE PO PRN ×3 (00:30→21:26)
[2023-06-07] MEDS: OMEPRAZOLE 20MG CAPSULE EXTENDED RELEASE PO SCH (07:48)
[2023-06-07] MEDS: HYDROCODONE/ACETAMINOPHEN 10/325MG TABLET PO PRN ×3 (07:49→23:57)
[2023-06-07] MEDS: CARVEDILOL 12.5MG TABLET PO SCH ×2 (09:00→17:00)
[2023-06-07 09:08] LABS: PARTIAL THROMBOPLASTIN TIME 32.1 sec (23.4-31.0); PROTHROMBIN TIME 10.6 sec (9.6-11.0)
[2023-06-07] MEDS: CALCIUM ACETATE 667MG CAPSULE PO SCH ×3 (09:31→17:34)
[2023-06-07] MEDS: ALBUTEROL (0.083%) 2.5MG/3ML NEB HHN PRN ×2 (10:23→14:19)
[2023-06-07] MEDS ORDERED: LIDOCAINE HCL 1% 10 MG/ML 10ML VIAL ONE (10:42)
[2023-06-07] MEDS ORDERED: HYDROCODONE/ACETAMINOPHEN 10/325MG TABLET PO SCH (12:00)
[2023-06-07] MEDS: ATORVASTATIN CALCIUM 40MG TABLET PO SCH (21:26)
[2023-06-08] VITALS (9 sets, daily range): BP systolic 112–166; BP diastolic 60–90; PULSE 74–89; RESP 16–22; TEMP 97.2–98.5; O2SAT 99
[2023-06-08] MEDS ORDERED: FAMOTIDINE 20MG TABLET PO SCH (09:00)
[2023-06-08] MEDS: CARVEDILOL 12.5MG TABLET PO SCH ×2 (09:00→09:29)
[2023-06-08] MEDS: CALCIUM ACETATE 667MG CAPSULE PO SCH ×2 (09:29→12:24)
[2023-06-08] MEDS: ONDANSETRON HCL 4MG/2ML INJ IV PRN (09:30)
[2023-06-08] MEDS: HYDROCODONE/ACETAMINOPHEN 10/325MG TABLET PO PRN ×2 (09:40→15:03)
[2023-06-08] MEDS: DIPHENHYDRAMINE 50MG CAPSULE PO PRN (12:24)
== END 2023-06-08 17:20 | disposition home or self-care (01) | DRG 48 ==
LOC: ER 10:09 → MICUSO 20:37 → EDBEDREQTM 20:39 → EDBEDREQ 20:39 → 8WST 06-06 06:03
PROVIDERS: ADMIT Internal Medicine; ATTEND Internal Medicine
PROC: 5A1D70Z Performance of Urinary Filtration, Intermittent, Less than 6 Hours Per Day (ICD-10-PCS; 2023-06-06)
PROC: 02PYX3Z Removal of Infusion Device from Great Vessel, External Approach (ICD-10-PCS; principal; 2023-06-07)
PROC: 5A1D70Z Performance of Urinary Filtration, Intermittent, Less than 6 Hours Per Day (ICD-10-PCS; 2023-06-08)
DX: G90.8 Other disorders of autonomic nervous system (principal); I13.2 Hypertensive heart and chronic kidney disease with heart failure and with stage 5 chronic kidney disease, or end stage renal disease; D63.1 Anemia in chronic kidney disease; N18.6 End stage renal disease; E83.51 Hypocalcemia; E87.5 Hyperkalemia; I50.9 Heart failure, unspecified; M48.00 Spinal stenosis, site unspecified; E83.52 Hypercalcemia; F17.210 Nicotine dependence, cigarettes, uncomplicated; J44.9 Chronic obstructive pulmonary disease, unspecified; M48.02 Spinal stenosis, cervical region; Z99.2 Dependence on renal dialysis
CPT/HCPCS: 36415; 36589; 71045; 72141; 72148; 80053; 83880; 84100; 84484; 85025; 86705; 86709; 87340; 90935; 93005; 94640; 97162; 99285; J0610; J0885; J1200; J1815; J2270; J2405; J3490; Q0163

== ENCOUNTER 2024-02-03 13:47 | Inpatient (IN) | payer MEDICAID, OTHER ==
[~2024-02-03] VITALS: Ht 182.9 cm; Wt 107.2 kg
[2024-02-03] VITALS (17 sets, daily range): BP systolic 120–193; BP diastolic 75–115; PULSE 110–122; RESP 13–27; TEMP 96.2
[2024-02-03] MEDS: FAMOTIDINE 20MG/2ML VIAL IV SCH (13:40)
[2024-02-03] MEDS: METHYLPREDNISOLONE SOD SUCC 500 MG in DEXT 5% WATER 100 ML IV ONE (13:40)
[~2024-02-03 13:47] MED LIST changes: +ALBU2.5V13 NEB; +AMLO5TAB88 MT; -BENA10TA74 PO; -BENZ100C86 MT; -BENZ100C86 PO; +CALC667C PO; -CALC667T2 PO; -COR12 PO; +CYCL10TA21 PO; -CYCL5TAB MT; +DICL100G58 TP; +DILT300C53 PO; -DILT300T10 MT; +DIPH-1205 PO; -DIPH25TA23 PO; +DIPH50CA38 PO; +DOCU250C14 PO; +ETOMIDATE 2MG/ML 10ML VIAL IV ONE; -GUAI600T26 MT; -HYDR-4009 MT; +HYDR-4009 PO; -IPRA3AMP9 NEB; +MELO-106 PO; +METH-774 PO; -TUSSL MT
[2024-02-03] MEDS ORDERED: CLINDAMYCIN 600 MG in DEXTROSE 5% WATER 50 ML IV ONE (14:45)
[2024-02-03] MEDS: CLINDAMYCIN 600MG PREMIX 50 ML IV NR (15:00)
[2024-02-03 15:09] LABS: HEMATOCRIT. 31.3 % (42.0-52.0); HEMOGLOBIN. 10.3 g/dL (14.0-18.0); MEAN CORPUSCULAR VOLUME 100.2 fL (80.0-94.0); MEAN PLATELET VOLUME 8.9 fl (7.4-10.4); PLATELET 281 x1000/uL (130-400); RED BLOOD CELL COUNT 3.13 mill/uL (4.7-6.1); RED CELL DISTRIBUTION WIDTH 17.1 % (11.6-14.6); WHITE BLOOD COUNT 6.7 x1000/uL (4.5-11.0)
[2024-02-03 15:12] LABS: DIFFERENTIAL COMMENT 1
[2024-02-03 15:13] LABS: CHLORIDE 100 mEq/L (98-107); POTASSIUM 4.5 mEq/L (3.5-5.1); SODIUM 137 mEq/L (136-145)
[2024-02-03 15:14] LABS: CALCIUM 8.4 mg/dL (8.7-10.4); CARBON DIOXIDE 25 mEq/L (21-32)
[2024-02-03 15:19] LABS: GLUCOSE 106 mg/dL (70-105); UREA NITROGEN BLOOD 45 mg/dL (9-23)
[2024-02-03 15:21] LABS: TROPONIN I HIGH SENSITIVITY 26 ng/L (3.0-53)
[2024-02-03 15:30] LABS: CREATININE 7.4 mg/dL (0.6-1.3)
[2024-02-03 15:39] LABS: ANISOCYTOSIS 1+; PLATELET ESTIMATE NORMAL
[2024-02-03] MEDS: EPINEPHRINE 1:1000 1 MG/ML AMP SUBCUT ONE (15:47)
[2024-02-03] MEDS ORDERED: NOREPINEPHRINE 8MG/250ML PMX 250 ML IV ONE (16:23)
[2024-02-03] MEDS: NOREPINEPHRINE 8MG/250ML PMX 250 ML IV ONE (16:45)
[2024-02-03] MEDS: SODIUM BICARBONATE 8.4% 50MEQ/50ML SYR IV ONE (16:46)
[2024-02-03 17:18] LABS: TROPONIN I HIGH SENSITIVITY 64 ng/L (3.0-53)
[2024-02-03] MEDS ORDERED: DOCUSATE SODIUM 100MG CAPSULE PO PRN (18:00)
[2024-02-03] MEDS ORDERED: ONDANSETRON HCL 4MG/2ML INJ IV PRN (18:00)
[2024-02-03] MEDS ORDERED: ACETAMINOPHEN 325MG TABLET PO PRN (18:00)
[2024-02-03] MEDS ORDERED: IPRATROPIUM/ALBUTEROL 0.5-3(2.5)MG/3ML NEB HHN PRN (18:00)
[2024-02-03] MEDS: TRANEXAMIC ACID 1,000MG/10ML TP ONE (18:20)
[2024-02-03 18:51] LABS: BG CARBOXYHEMOGLOBIN 1.3 % (0.5-1.5); BG DEOXYHEMOGLOBIN 0.3 % (0.0-5.0); BG FRACTION INSPIRED OXYGEN 100; BG HCO3 ACT 20.2 mmol/L (22.0-26.0); BG METHEMOGLOBIN 0.3 % (0.0-1.5); BG OXYGEN SATURATION 99.7 % (92.0-98.5); BG OXYHEMOGLOBIN 98.1 % (94.0-97.0); BG PCO2 42.6 mmHg (35.0-45.0); BG PH 7.293 (7.350-7.450); BG PO2 364.1 mmHg (75.0-100.0); BG SAMPLE SITE UC; BG TOTAL HEMOGLOBIN 10.3 g/dL (12.0-18.0); BG VENT MODE VENT - AC
[2024-02-03] MEDS: VANCOMYCIN 1.5GM/250ML 250 ML IV NR (19:14)
[2024-02-03] MEDS: PROPOFOL 10MG/ML 100ML 100 ML IV SCH (19:55)
[2024-02-03] MEDS: DIPHENHYDRAMINE 50MG/ML VIAL IV ONE (20:22)
[2024-02-03] MEDS: PIPERACILLIN/TAZO 3.375G/50ML 50 ML IV SCH (21:20)
[2024-02-03] MEDS: METHYLPREDNISOLONE SOD SUCC 40MG/ML (ACT-O-VIAL) IV SCH (21:21)
[2024-02-03] MEDS ORDERED: NICARDIPINE 40MG/200ML PREMIX 200 ML IV PRN (22:00)
[2024-02-03] MEDS: FENTANYL 2500MCG/250ML PMX 250 ML IV PRN (22:38)
[2024-02-03 23:14] LABS: CARBON DIOXIDE 19 mEq/L (21-32); CHLORIDE 101 mEq/L (98-107); POTASSIUM 4.5 mEq/L (3.5-5.1); SODIUM 138 mEq/L (136-145)
[2024-02-03 23:15] LABS: CALCIUM 8.2 mg/dL (8.7-10.4)
[2024-02-03 23:20] LABS: GLUCOSE 253 mg/dL (70-105); TRIGLYCERIDE 47 mg/dL (0-150); UREA NITROGEN BLOOD 48 mg/dL (9-23)
[2024-02-03 23:21] LABS: ALANINE AMINOTRANSFERASE 24 IU/L (10-49); ALBUMIN 3.9 g/dL (3.2-4.8); ASPARTATE AMINOTRANSFERASE 38 IU/L (<34); LDL CHOLESTEROL 62 mg/dL (5-100)
[2024-02-03 23:22] LABS: BILIRUBIN TOTAL 0.3 mg/dL (0.1-1.0); CHOLESTEROL 145 mg/dL (<200); HDL CHOLESTEROL 65 mg/dL (>55); PHOSPHORUS 7.7 mg/dL (2.5-4.9); PROTEIN TOTAL 6.6 g/dL (6.0-8.3)
[2024-02-03 23:24] LABS: TROPONIN I HIGH SENSITIVITY 793 ng/L (3.0-53)
[2024-02-04] VITALS (86 sets, daily range): BP systolic 76–167; BP diastolic 58–119; PULSE 106–130; RESP 12–30; TEMP 98–99.1
[2024-02-04 00:44] LABS: HEMATOCRIT. 33.2 % (42.0-52.0); HEMOGLOBIN. 10.2 g/dL (14.0-18.0); MEAN CORPUSCULAR HEMOGLOBIN 31.5 pg (28.0-32.0); MEAN CORPUSCULAR HGB CONC 30.8 g/dL (31.0-37.0); MEAN CORPUSCULAR VOLUME 102.3 fL (80.0-94.0); MEAN PLATELET VOLUME 9.3 fl (7.4-10.4); PLATELET 276 x1000/uL (130-400); RED BLOOD CELL COUNT 3.25 mill/uL (4.7-6.1); RED CELL DISTRIBUTION WIDTH 17.6 % (11.6-14.6); WHITE BLOOD COUNT 19.2 x1000/uL (4.5-11.0)
[2024-02-04 00:47] LABS: DIFFERENTIAL COMMENT 1
[2024-02-04 03:34] LABS: PLATELET ESTIMATE NORMAL
[2024-02-04 05:47] LABS: DIFFERENTIAL COMMENT 1; HEMATOCRIT. 28.3 % (42.0-52.0); HEMOGLOBIN. 9.1 g/dL (14.0-18.0); MEAN CORPUSCULAR HEMOGLOBIN 31.9 pg (28.0-32.0); MEAN CORPUSCULAR HGB CONC 32.1 g/dL (31.0-37.0); MEAN CORPUSCULAR VOLUME 99.4 fL (80.0-94.0); MEAN PLATELET VOLUME 9.5 fl (7.4-10.4); PLATELET 265 x1000/uL (130-400); RED BLOOD CELL COUNT 2.85 mill/uL (4.7-6.1); RED CELL DISTRIBUTION WIDTH 17.5 % (11.6-14.6); WHITE BLOOD COUNT 15.3 x1000/uL (4.5-11.0)
[2024-02-04 05:54] LABS: CALCIUM 8.3 mg/dL (8.7-10.4)
[2024-02-04 06:23] LABS: CREATININE 8.5 mg/dL (0.6-1.3); POTASSIUM 6.6 mEq/L (3.5-5.1)
[2024-02-04] MEDS ORDERED: PROPOFOL 10MG/ML 100ML 100 ML IV PRN (07:30)
[2024-02-04] MEDS ORDERED: LEVETIRACETAM 500MG in NACL 100ML PREMIX IV SCH (09:00)
[2024-02-04] MEDS: LEVETIRACETAM 500MG PREMIX 100 ML IV SCH (09:24)
[2024-02-04] MEDS: AZITHROMYCIN 500MG/250ML 250 ML IV SCH (09:24)
[2024-02-04 09:33] LABS: BG CARBOXYHEMOGLOBIN 0.4 % (0.5-1.5); BG DEOXYHEMOGLOBIN 0.6 % (0.0-5.0); BG FRACTION INSPIRED OXYGEN 60; BG HCO3 ACT 21.3 mmol/L (22.0-26.0); BG METHEMOGLOBIN 0.3 % (0.0-1.5); BG OXYGEN SATURATION 99.4 % (92.0-98.5); BG OXYHEMOGLOBIN 98.7 % (94.0-97.0); BG PCO2 50.5 mmHg (35.0-45.0); BG PH 7.242 (7.350-7.450); BG PO2 218.9 mmHg (75.0-100.0); BG SAMPLE SITE RIGHT RADIAL; BG TOTAL HEMOGLOBIN 9.9 g/dL (12.0-18.0); BG VENT MODE VENT - AC
[2024-02-04 10:53] LABS: HEMATOCRIT 30.7 % (42.0-52.0); HEMOGLOBIN 9.6 g/dL (14.0-18.0)
[2024-02-04 11:04] LABS: PROTHROMBIN TIME 11.4 sec (9.6-11.0)
[2024-02-04] MEDS: SODIUM BICARBONATE 8.4% 50MEQ/50ML SYR IV NR (11:36)
[2024-02-04] MEDS: SODIUM POLYSTYRENE SULFONATE 15 G/60 ML BOT PR NR (11:36)
[2024-02-04] MEDS: INSULIN REGULAR (HUMULIN R) 1000UNITS/10ML VIAL IV NR (11:38)
[2024-02-04] MEDS: VANCOMYCIN 750MG/250ML IV NR (11:47)
[2024-02-04] MEDS: CALCIUM GLUCONATE 1GM PREMIX 50 ML IV NR (11:48)
[2024-02-04] MEDS: DEXTROSE 50% WATER 50ML SYRINGE IV NR (11:48)
[2024-02-04] MEDS: IPRATROPIUM/ALBUTEROL 0.5-3(2.5)MG/3ML NEB HHN SCH (12:25)
[2024-02-04 12:48] LABS: HEPATITIS B SURFACE ANTIGEN NEGATIVE (Negative)
[2024-02-04 13:09] LABS: HEPATITIS A AB IGM NEGATIVE (Negative)
[2024-02-04 13:10] LABS: HEPATITIS B CORE AB IGM NEGATIVE (Negative); HEPATITIS C AB NON REACTIVE (Neg) (Negative)
[2024-02-04] MEDS: MIDAZOLAM 100MG/100ML PMX 100 ML IV PRN (13:54)
[2024-02-04] MEDS: METHYLPREDNISOLONE SOD SUCC 125MG/2ML (ACT-O-VIAL) IV SCH (14:08)
[2024-02-04 15:37] LABS: ANISOCYTOSIS 1+; PLATELET ESTIMATE NORMAL
[2024-02-04 15:44] LABS: BG CARBOXYHEMOGLOBIN 0.3 % (0.5-1.5); BG DEOXYHEMOGLOBIN 0.3 % (0.0-5.0); BG FRACTION INSPIRED OXYGEN 100; BG HCO3 ACT 25.9 mmol/L (22.0-26.0); BG METHEMOGLOBIN 0.3 % (0.0-1.5); BG OXYGEN SATURATION 99.7 % (92.0-98.5); BG OXYHEMOGLOBIN 99.1 % (94.0-97.0); BG PCO2 60.9 mmHg (35.0-45.0); BG PH 7.246 (7.350-7.450); BG PO2 424.9 mmHg (75.0-100.0); BG SAMPLE SITE LEFT RADIAL; BG TOTAL HEMOGLOBIN 10.3 g/dL (12.0-18.0); BG VENT MODE PRVC
[2024-02-04] MEDS: NOREPINEPHRINE 32 MG in DEXT 5% WATER 218 ML IV PRN (17:42)
[2024-02-04] MEDS: VASOPRESSIN 20 UNIT in SODIUM CHLORIDE 0.9% 99 ML IV PRN (17:53)
[2024-02-04] MEDS: PHENYLEPHRINE 50MG/250ML PMX 250 ML IV PRN (18:32)
[2024-02-04 19:40] LABS: BG BASE EXCESS -3.1 mmol/L (-2.0-2.0); BG CARBOXYHEMOGLOBIN 0.8 % (0.5-1.5); BG DEOXYHEMOGLOBIN 2.7 % (0.0-5.0); BG FRACTION INSPIRED OXYGEN 50; BG HCO3 ACT 24.2 mmol/L (22.0-26.0); BG METHEMOGLOBIN 0.3 % (0.0-1.5); BG OXYGEN SATURATION 97.3 % (92.0-98.5); BG OXYHEMOGLOBIN 96.2 % (94.0-97.0); BG PCO2 54.7 mmHg (35.0-45.0); BG PH 7.264 (7.350-7.450); BG PO2 104.8 mmHg (75.0-100.0); BG SAMPLE SITE LEFT RADIAL; BG VENT MODE PRVC
[2024-02-04 19:41] LABS: POTASSIUM 6.1 mEq/L (3.5-5.1)
[2024-02-04 19:43] LABS: CALCIUM 8.3 mg/dL (8.7-10.4)
[2024-02-04 19:50] LABS: CREATININE 6.3 mg/dL (0.6-1.3)
[2024-02-05] VITALS (116 sets, daily range): BP systolic 74–197; BP diastolic 31–100; PULSE 107–130; RESP 15–32; TEMP 98.1–98.9
[2024-02-05 10:48] LABS: HEMATOCRIT 26.7 % (42.0-52.0); HEMOGLOBIN 8.4 g/dL (14.0-18.0); MEAN CORPUSCULAR HEMOGLOBIN 31.9 pg (28.0-32.0); MEAN CORPUSCULAR HGB CONC 31.5 g/dL (31.0-37.0); MEAN CORPUSCULAR VOLUME 101.3 fL (80.0-94.0); PLATELET 279 x1000/uL (130-400); RED BLOOD CELL COUNT 2.64 mill/uL (4.7-6.1); RED CELL DISTRIBUTION WIDTH 18.2 % (11.6-14.6); WHITE BLOOD COUNT 22.5 x1000/uL (4.5-11.0)
[2024-02-05 10:52] LABS: CHLORIDE 99 mEq/L (98-107); POTASSIUM 5.9 mEq/L (3.5-5.1); SODIUM 136 mEq/L (136-145)
[2024-02-05 10:53] LABS: CARBON DIOXIDE 20 mEq/L (21-32)
[2024-02-05 10:54] LABS: CALCIUM 7.2 mg/dL (8.7-10.4)
[2024-02-05 10:58] LABS: GLUCOSE 133 mg/dL (70-105); UREA NITROGEN BLOOD 60 mg/dL (9-23)
[2024-02-05] MEDS: LORAZEPAM 2MG/ML INJ IV PRN (11:07)
[2024-02-05 11:10] LABS: PHOSPHORUS 10.7 mg/dL (2.5-4.9)
[2024-02-05] MEDS: PROPOFOL 10MG/ML 100ML 100 ML IV PRN (11:30)
[2024-02-05] MEDS: PANTOPRAZOLE SODIUM 40 MG/VIAL IV SCH (13:33)
[2024-02-05] MEDS ORDERED: LIDOCAINE HCL 1% 10 MG/ML 10ML VIAL ONE (13:57)
[2024-02-05] MEDS: VANCOMYCIN 500MG/100ML IV NR (18:14)
[2024-02-05] MEDS: PHENYLEPHRINE 100 MG in DEXT 5% WATER 240 ML IV PRN (18:14)
[2024-02-05] MEDS ORDERED: ALTEPLASE 100MG/VIAL IV ONE (20:45)
[2024-02-05] MEDS ORDERED: ALTEPLASE 2MG/VIAL ITC NR ×2 (22:00)
[2024-02-06] VITALS (114 sets, daily range): BP systolic 67–197; BP diastolic 11–110; PULSE 82–129; RESP 20–32; TEMP 98–99.1
[2024-02-06] MEDS: LACTULOSE 20G/30ML UDC NG NR (01:36)
[2024-02-06] MEDS: SODIUM POLYSTYRENE SULFONATE 15 G/60 ML BOT NG NR (01:36)
[2024-02-06] MEDS: LACTULOSE 20G/30ML UDC PO NR (01:58)
[2024-02-06 05:04] LABS: HEMATOCRIT. 27.1 % (42.0-52.0); HEMOGLOBIN. 8.6 g/dL (14.0-18.0); MEAN CORPUSCULAR HEMOGLOBIN 31.5 pg (28.0-32.0); MEAN CORPUSCULAR HGB CONC 31.6 g/dL (31.0-37.0); MEAN PLATELET VOLUME 9.3 fl (7.4-10.4); PLATELET 289 x1000/uL (130-400); RED BLOOD CELL COUNT 2.71 mill/uL (4.7-6.1); RED CELL DISTRIBUTION WIDTH 18.1 % (11.6-14.6); WHITE BLOOD COUNT 28.8 x1000/uL (4.5-11.0)
[2024-02-06 05:09] LABS: CHLORIDE 97 mEq/L (98-107); POTASSIUM 5.2 mEq/L (3.5-5.1); SODIUM 135 mEq/L (136-145)
[2024-02-06 05:10] LABS: CALCIUM 6.9 mg/dL (8.7-10.4); CARBON DIOXIDE 21 mEq/L (21-32)
[2024-02-06 05:15] LABS: GLUCOSE 138 mg/dL (70-105); TRIGLYCERIDE 120 mg/dL (0-150); UREA NITROGEN BLOOD 72 mg/dL (9-23)
[2024-02-06 05:16] LABS: ALANINE AMINOTRANSFERASE 644 IU/L (10-49); ASPARTATE AMINOTRANSFERASE 474 IU/L (<34)
[2024-02-06 05:17] LABS: ALBUMIN 3.5 g/dL (3.2-4.8); BILIRUBIN TOTAL 0.5 mg/dL (0.1-1.0)
[2024-02-06 05:39] LABS: DIFFERENTIAL COMMENT 1
[2024-02-06 05:41] LABS: CREATININE 8.5 mg/dL (0.6-1.3)
[2024-02-06] MEDS ORDERED: DEXTROSE 50% WATER 50ML SYRINGE IV PRN (09:15)
[2024-02-06] MEDS ORDERED: BLOOD SUGAR DIAGNOSTIC STRIP TEST SCH (09:15)
[2024-02-06] MEDS: CALCIUM ACETATE 667MG CAPSULE GT SCH (09:26)
[2024-02-06] MEDS: DOXYCYCLINE 100MG/100ML 100 ML IV SCH (09:26)
[2024-02-06 10:34] LABS: BG BASE EXCESS -4.7 mmol/L (-2.0-2.0); BG CARBOXYHEMOGLOBIN 0.5 % (0.5-1.5); BG DEOXYHEMOGLOBIN 1.6 % (0.0-5.0); BG FRACTION INSPIRED OXYGEN 50; BG HCO3 ACT 20.4 mmol/L (22.0-26.0); BG METHEMOGLOBIN 0.3 % (0.0-1.5); BG OXYGEN SATURATION 98.4 % (92.0-98.5); BG OXYHEMOGLOBIN 97.6 % (94.0-97.0); BG PCO2 37.5 mmHg (35.0-45.0); BG PH 7.353 (7.350-7.450); BG SAMPLE SITE RIGHT RADIAL; BG TOTAL HEMOGLOBIN 9.5 g/dL (12.0-18.0); BG TOTAL RESPIRATORY RATE 30 b/min; BG VENT MODE VENTPRVC
[2024-02-06] MEDS ORDERED: INSULIN LISPRO 100 UNITS/ML SUBCUT SCH (12:00)
[2024-02-06] MEDS: BLOOD SUGAR DIAGNOSTIC STRIP TEST SCH (12:43)
[2024-02-06] MEDS: INSULIN LISPRO 100 UNITS/ML SUBCUT SCH (12:43)
[2024-02-06] MEDS: MIDAZOLAM HCL 100 MG in SODIUM CHLORIDE 0.9% 100 ML IV PRN (12:45)
[2024-02-06 13:06] LABS: INR 1.1; PARTIAL THROMBOPLASTIN TIME 29.6 sec (23.4-31.0); PROTHROMBIN TIME 12.5 sec (9.6-11.0)
[2024-02-06] MEDS: CALCIUM GLUCONATE 1GM PREMIX 50 ML IV NR (14:42)
[2024-02-06 14:49] LABS: POTASSIUM 4.8 mEq/L (3.5-5.1)
[2024-02-06 14:50] LABS: CALCIUM 6.4 mg/dL (8.7-10.4)
[2024-02-06 15:19] LABS: NUCLEATED RED BLOOD CELLS 1 /100 WBC
[2024-02-06 15:20] LABS: ANISOCYTOSIS 2+; PLATELET ESTIMATE NORMAL
[2024-02-06 15:27] LABS: CREATININE 8.6 mg/dL (0.6-1.3)
[2024-02-06] MEDS ORDERED: ROCURONIUM BROMIDE 10MG/ML VIAL 5ML IV ONE ×2 (17:10→18:23)
[2024-02-06] MEDS ORDERED: DEXAMETHASONE 4MG/ML 1ML VIAL ONE (18:24)
[2024-02-06] MEDS ORDERED: ONDANSETRON HCL 4MG/2ML INJ ONE (18:24)
[2024-02-06] MEDS ORDERED: SUCCINYLCHOLINE CHLORIDE 200MG/10ML IV ONE (18:25)
[2024-02-06 21:08] LABS: BG BASE EXCESS -2.4 mmol/L (-2.0-2.0); BG CARBOXYHEMOGLOBIN 0.9 % (0.5-1.5); BG DEOXYHEMOGLOBIN 4.2 % (0.0-5.0); BG FRACTION INSPIRED OXYGEN 50; BG HCO3 ACT 23.6 mmol/L (22.0-26.0); BG METHEMOGLOBIN 0.3 % (0.0-1.5); BG OXYGEN SATURATION 95.7 % (92.0-98.5); BG OXYHEMOGLOBIN 94.6 % (94.0-97.0); BG PCO2 45.5 mmHg (35.0-45.0); BG PH 7.332 (7.350-7.450); BG PO2 90.3 mmHg (75.0-100.0); BG SAMPLE SITE RIGHT RADIAL; BG TOTAL HEMOGLOBIN 10.4 g/dL (12.0-18.0); BG VENT MODE VENT - AC
[2024-02-07] VITALS (99 sets, daily range): BP systolic 76–186; BP diastolic 16–97; PULSE 105–138; RESP 13–34; TEMP 98–99
[2024-02-07 04:55] LABS: HEMOGLOBIN 8.6 g/dL (14.0-18.0); MEAN CORPUSCULAR HEMOGLOBIN 31.9 pg (28.0-32.0); MEAN CORPUSCULAR HGB CONC 31.8 g/dL (31.0-37.0); PLATELET 284 x1000/uL (130-400); RED CELL DISTRIBUTION WIDTH 18.1 % (11.6-14.6); WHITE BLOOD COUNT 29.4 x1000/uL (4.5-11.0)
[2024-02-07 04:57] LABS: CARBON DIOXIDE 24 mEq/L (21-32); CHLORIDE 96 mEq/L (98-107); POTASSIUM 4.4 mEq/L (3.5-5.1); SODIUM 134 mEq/L (136-145)
[2024-02-07 05:03] LABS: GLUCOSE 152 mg/dL (70-105); UREA NITROGEN BLOOD 67 mg/dL (9-23)
[2024-02-07 05:09] LABS: CREATININE 7.2 mg/dL (0.6-1.3)
[2024-02-07 07:42] LABS: BG BASE EXCESS -2.1 mmol/L (-2.0-2.0); BG CARBOXYHEMOGLOBIN 0.5 % (0.5-1.5); BG DEOXYHEMOGLOBIN 0.9 % (0.0-5.0); BG FRACTION INSPIRED OXYGEN 50; BG HCO3 ACT 22.1 mmol/L (22.0-26.0); BG METHEMOGLOBIN 0.3 % (0.0-1.5); BG OXYGEN SATURATION 99.1 % (92.0-98.5); BG OXYHEMOGLOBIN 98.3 % (94.0-97.0); BG PCO2 35.8 mmHg (35.0-45.0); BG PH 7.409 (7.350-7.450); BG PO2 128.7 mmHg (75.0-100.0); BG SAMPLE SITE RIGHT RADIAL; BG TOTAL HEMOGLOBIN 9.6 g/dL (12.0-18.0); BG VENT MODE VENT - AC/VC
[2024-02-07] MEDS: ENOXAPARIN 30MG/0.3ML SYR SUBCUT SCH (18:05)
[2024-02-07] MEDS: METOCLOPRAMIDE HCL 10MG/2ML VIAL IV SCH (21:03)
[2024-02-08] VITALS (89 sets, daily range): BP systolic 92–148; BP diastolic 53–92; PULSE 100–126; RESP 14–26; TEMP 97.7–99
[2024-02-08 11:26] LABS: HEMOGLOBIN. 8.7 g/dL (14.0-18.0); MEAN CORPUSCULAR HEMOGLOBIN 31.5 pg (28.0-32.0); MEAN CORPUSCULAR HGB CONC 32.1 g/dL (31.0-37.0); MEAN CORPUSCULAR VOLUME 98.3 fL (80.0-94.0); MEAN PLATELET VOLUME 9.6 fl (7.4-10.4); PLATELET 266 x1000/uL (130-400); RED BLOOD CELL COUNT 2.75 mill/uL (4.7-6.1); RED CELL DISTRIBUTION WIDTH 18.1 % (11.6-14.6)
[2024-02-08 11:32] LABS: DIFFERENTIAL COMMENT 1
[2024-02-08] MEDS ORDERED: BISACODYL 10MG SUPP PR PRN (12:45)
[2024-02-08] MEDS: DOCUSATE SODIUM SUGAR FREE 100MG/10ML UDC NG SCH (13:37)
[2024-02-08] MEDS: LACTULOSE 20G/30ML UDC NG NR (13:37)
[2024-02-08] MEDS: FOLIC ACID/VITAMIN B COMP W-C TABLET PO SCH (13:38)
[2024-02-08 16:17] LABS: ANISOCYTOSIS 1+; NUCLEATED RED BLOOD CELLS 2 /100 WBC; PLATELET ESTIMATE NORMAL
[2024-02-08] MEDS ORDERED: LACTULOSE 20G/30ML UDC NG PRN (21:00)
[2024-02-08] MEDS: METHYLPREDNISOLONE SOD SUCC 125MG/2ML (ACT-O-VIAL) IV SCH (21:04)
[2024-02-08 22:17] LABS: CHLORIDE 95 mEq/L (98-107); POTASSIUM 4.3 mEq/L (3.5-5.1); SODIUM 133 mEq/L (136-145)
[2024-02-08 22:18] LABS: CALCIUM 7.7 mg/dL (8.7-10.4); CARBON DIOXIDE 22 mEq/L (21-32)
[2024-02-08 22:23] LABS: GLUCOSE 166 mg/dL (70-105); UREA NITROGEN BLOOD 88 mg/dL (9-23)
[2024-02-08 22:25] LABS: ALANINE AMINOTRANSFERASE 312 IU/L (10-49); ALBUMIN 3.4 g/dL (3.2-4.8); ASPARTATE AMINOTRANSFERASE 114 IU/L (<34); BILIRUBIN TOTAL 0.6 mg/dL (0.1-1.0); PROTEIN TOTAL 5.8 g/dL (6.0-8.3)
[2024-02-08 22:29] LABS: CREATININE 8.4 mg/dL (0.6-1.3)
[2024-02-09] VITALS (88 sets, daily range): BP systolic 126–176; BP diastolic 78–103; PULSE 117–125; RESP 17–27; TEMP 98–99
[2024-02-09 05:45] LABS: CHLORIDE 93 mEq/L (98-107); POTASSIUM 4.7 mEq/L (3.5-5.1); SODIUM 133 mEq/L (136-145)
[2024-02-09 05:46] LABS: CALCIUM 8.4 mg/dL (8.7-10.4); CARBON DIOXIDE 21 mEq/L (21-32)
[2024-02-09 05:49] LABS: FERRITIN 272 ng/mL (22-322); VITAMIN B12 SERUM 1408 pg/mL (211-911)
[2024-02-09 05:51] LABS: GLUCOSE 149 mg/dL (70-105); IRON 20 ug/dL (65-175)
[2024-02-09 05:52] LABS: INR 1.1; PROTHROMBIN TIME 12.3 sec (9.6-11.0); TOTAL IRON BINDING CAPACITY 408 ug/dl (250-425)
[2024-02-09 05:53] LABS: ALANINE AMINOTRANSFERASE 291 IU/L (10-49); ALBUMIN 3.7 g/dL (3.2-4.8); ASPARTATE AMINOTRANSFERASE 104 IU/L (<34); BILIRUBIN DIRECT 0.3 mg/dL (<=3.0); BILIRUBIN TOTAL 0.5 mg/dL (0.1-1.0)
[2024-02-09 05:54] LABS: PROTEIN TOTAL 6.1 g/dL (6.0-8.3)
[2024-02-09 06:03] LABS: CREATININE 8.8 mg/dL (0.6-1.3); HEMATOCRIT. 22.1 % (42.0-52.0); MEAN CORPUSCULAR HEMOGLOBIN 31.6 pg (28.0-32.0); MEAN CORPUSCULAR HGB CONC 31.8 g/dL (31.0-37.0); MEAN CORPUSCULAR VOLUME 99.4 fL (80.0-94.0); MEAN PLATELET VOLUME 9.5 fl (7.4-10.4); PLATELET 219 x1000/uL (130-400); RED BLOOD CELL COUNT 2.23 mill/uL (4.7-6.1); RED CELL DISTRIBUTION WIDTH 17.5 % (11.6-14.6); UREA NITROGEN BLOOD 105 mg/dL (9-23)
[2024-02-09 06:30] LABS: WHITE BLOOD COUNT 42.2 x1000/uL (4.5-11.0)
[2024-02-09 06:32] LABS: DIFFERENTIAL COMMENT 1
[2024-02-09] MEDS: PANTOPRAZOLE SODIUM 40 MG/VIAL IV SCH (10:30)
[2024-02-09 13:13] LABS: HEMATOCRIT 23.9 % (42.0-52.0); HEMOGLOBIN 7.4 g/dL (14.0-18.0)
[2024-02-09 21:04] LABS: HEMATOCRIT 24.9 % (42.0-52.0); HEMOGLOBIN 7.6 g/dL (14.0-18.0)
[2024-02-09] MEDS: FERROUS SULFATE 325MG TABLET PO SCH (21:09)
[2024-02-09] MEDS: ASCORBIC ACID 250 MG TABLET NG SCH (21:10)
[2024-02-09] MEDS: CLONIDINE 0.1MG TABLET PO PRN (22:41)
[2024-02-09] MEDS: ACETAMINOPHEN 650MG/20.3ML UDC GT PRN (22:41)
[2024-02-10] VITALS (114 sets, daily range): BP systolic 79–186; BP diastolic 35–114; PULSE 80–123; RESP 16–39; TEMP 97–98.7; O2SAT 94
[2024-02-10] MEDS: NICARDIPINE 50 MG in SODIUM CHLORIDE 0.9% 250 ML IV PRN (00:16)
[2024-02-10 00:59] LABS: ANISOCYTOSIS 1+; NUCLEATED RED BLOOD CELLS 4 /100 WBC; PLATELET ESTIMATE NORMAL
[2024-02-10] MEDS: LACTULOSE 20G/30ML UDC GT PRN (01:45)
[2024-02-10 04:23] LABS: HEMATOCRIT. 24.8 % (42.0-52.0); HEMOGLOBIN. 7.6 g/dL (14.0-18.0); MEAN CORPUSCULAR HEMOGLOBIN 30.4 pg (28.0-32.0); MEAN CORPUSCULAR HGB CONC 30.4 g/dL (31.0-37.0); MEAN CORPUSCULAR VOLUME 99.8 fL (80.0-94.0); MEAN PLATELET VOLUME 9.7 fl (7.4-10.4); PLATELET 289 x1000/uL (130-400); RED BLOOD CELL COUNT 2.49 mill/uL (4.7-6.1)
[2024-02-10 04:33] LABS: CHLORIDE 93 mEq/L (98-107); SODIUM 132 mEq/L (136-145)
[2024-02-10 04:34] LABS: CALCIUM 8.7 mg/dL (8.7-10.4); CARBON DIOXIDE 13 mEq/L (21-32)
[2024-02-10 04:39] LABS: GLUCOSE 271 mg/dL (70-105)
[2024-02-10 04:41] LABS: ALANINE AMINOTRANSFERASE 262 IU/L (10-49); ALBUMIN 3.8 g/dL (3.2-4.8); ASPARTATE AMINOTRANSFERASE 110 IU/L (<34); BILIRUBIN TOTAL 0.6 mg/dL (0.1-1.0); PROTEIN TOTAL 6.6 g/dL (6.0-8.3)
[2024-02-10 04:54] LABS: CREATININE 10.3 mg/dL (0.6-1.3); UREA NITROGEN BLOOD 138 mg/dL (9-23)
[2024-02-10 05:11] LABS: DIFFERENTIAL COMMENT 1; WHITE BLOOD COUNT 49.7 x1000/uL (4.5-11.0)
[2024-02-10 07:02] LABS: ANISOCYTOSIS 2+; NUCLEATED RED BLOOD CELLS 11 /100 WBC; PLATELET ESTIMATE NORMAL
[2024-02-10] MEDS: ALTEPLASE 2MG/VIAL ITC NR (09:00)
[2024-02-10 09:37] LABS: HEMATOCRIT 28.2 % (42.0-52.0); HEMOGLOBIN 8.7 g/dL (14.0-18.0)
[2024-02-10] MEDS ORDERED: HYDRALAZINE 20MG/ML VIAL IV PRN (10:45)
[2024-02-10] MEDS: NA PHOS,M-B/NA PHOS,DI-BA ENEMA 118ML PR NR (11:15)
[2024-02-10] MEDS: METOCLOPRAMIDE HCL 10MG/2ML VIAL IV SCH (12:06)
[2024-02-10] MEDS: LORAZEPAM 2MG/ML INJ IV NR (12:07)
[2024-02-10] MEDS ORDERED: DOCUSATE SODIUM SUGAR FREE 100MG/10ML UDC GT PRN (14:15)
[2024-02-10] MEDS: FENTANYL CITRATE/PF 50MCG/ML 2ML VIAL IV NR (14:36)
[2024-02-10 14:45] LABS: POTASSIUM 5.1 mEq/L (3.5-5.1)
[2024-02-10] MEDS ORDERED: DEXMEDETOMIDINE 400 MCG/100 ML 100 ML IV PRN (15:45)
[2024-02-10] MEDS: DEXTROSE 5% WATER 1,000 ML IV SCH (15:45)
[2024-02-10] MEDS: FERROUS SULFATE 300MG/5ML UDC GT SCH (17:00)
[2024-02-10] MEDS: FENTANYL 2500MCG/250ML PMX 250 ML IV PRN (19:58)
[2024-02-11] VITALS (106 sets, daily range): BP systolic 78–148; BP diastolic 8–79; PULSE 14–139; RESP 17–33; TEMP 97.8–100.4
[2024-02-11 05:43] LABS: HEMATOCRIT. 23.7 % (42.0-52.0); HEMOGLOBIN. 7.1 g/dL (14.0-18.0); MEAN CORPUSCULAR HEMOGLOBIN 30.5 pg (28.0-32.0); MEAN CORPUSCULAR HGB CONC 29.8 g/dL (31.0-37.0); MEAN CORPUSCULAR VOLUME 102.3 fL (80.0-94.0); MEAN PLATELET VOLUME 10.1 fl (7.4-10.4); PLATELET 264 x1000/uL (130-400); RED BLOOD CELL COUNT 2.32 mill/uL (4.7-6.1); RED CELL DISTRIBUTION WIDTH 17.8 % (11.6-14.6)
[2024-02-11 05:50] LABS: LACTIC ACID 4.9 mmol/L (0.4-2.0)
[2024-02-11 05:53] LABS: CREATININE 10.7 mg/dL (0.6-1.3); POTASSIUM 7.5 mEq/L (3.5-5.1)
[2024-02-11 06:05] LABS: INR 1.8; PROTHROMBIN TIME 19.2 sec (9.6-11.0)
[2024-02-11 06:53] LABS: DIFFERENTIAL COMMENT 1
[2024-02-11] MEDS: DEXTROSE 50% WATER 50ML SYRINGE IV NR (07:06)
[2024-02-11] MEDS: INSULIN REGULAR (HUMULIN R) 1000UNITS/10ML VIAL IV NR (07:06)
[2024-02-11] MEDS: DEXT 5%/0.45% NACL 1000ML 1,000 ML IV SCH (07:06)
[2024-02-11 11:23] LABS: ANISOCYTOSIS 2+; NUCLEATED RED BLOOD CELLS 29 /100 WBC; PLATELET ESTIMATE NORMAL
[2024-02-11] MEDS: CALCIUM GLUCONATE 100MG/ML 10ML VIAL IV NR (12:19)
[2024-02-11] MEDS: METOCLOPRAMIDE HCL 10MG/2ML VIAL IV SCH (12:20)
[2024-02-11] MEDS: PIPERACILLIN/TAZO 3.375G/50ML 50 ML IV SCH (12:22)
[2024-02-11] MEDS: THIAMINE HCL 100 MG in SODIUM CHLORIDE 0.9% 49 ML IV SCH (17:38)
[2024-02-11 18:58] LABS: POTASSIUM 5.3 mEq/L (3.5-5.1)
[2024-02-11 18:59] LABS: CALCIUM 7.5 mg/dL (8.7-10.4)
[2024-02-11 19:04] LABS: CREATININE 6.4 mg/dL (0.6-1.3)
[2024-02-11] MEDS ORDERED: FENTANYL CITRATE/PF 2,500 MCG in SODIUM CHLORIDE 0.9% 200 ML IV PRN (20:45)
[2024-02-11] MEDS ORDERED: FENTANYL 2500MCG/250ML PMX 250 ML IV PRN (20:45)
[2024-02-11] MEDS: DILTIAZEM HCL 5MG/ML 5ML VIAL IV NR (23:29)
[2024-02-12] VITALS (104 sets, daily range): BP systolic 76–154; BP diastolic 45–93; PULSE 90–143; RESP 16–29; TEMP 97.5–100.8
[2024-02-12 05:32] LABS: CARBON DIOXIDE 17 mEq/L (21-32); CHLORIDE 93 mEq/L (98-107); POTASSIUM 5.9 mEq/L (3.5-5.1); SODIUM 133 mEq/L (136-145)
[2024-02-12 05:38] LABS: GLUCOSE 159 mg/dL (70-105)
[2024-02-12 05:42] LABS: INR 2.8; PROTHROMBIN TIME 28.7 sec (9.6-11.0)
[2024-02-12 05:50] LABS: CREATININE 7.7 mg/dL (0.6-1.3); UREA NITROGEN BLOOD 108 mg/dL (9-23)
[2024-02-12 07:00] LABS: HEMATOCRIT. 25.7 % (42.0-52.0); HEMOGLOBIN. 7.6 g/dL (14.0-18.0); MEAN CORPUSCULAR HEMOGLOBIN 30.4 pg (28.0-32.0); MEAN CORPUSCULAR HGB CONC 29.5 g/dL (31.0-37.0); MEAN PLATELET VOLUME 10.1 fl (7.4-10.4); PLATELET 238 x1000/uL (130-400); RED BLOOD CELL COUNT 2.49 mill/uL (4.7-6.1); RED CELL DISTRIBUTION WIDTH 18.3 % (11.6-14.6)
[2024-02-12 07:35] LABS: DIFFERENTIAL COMMENT 1
[2024-02-12] MEDS ORDERED: MORPHINE SULFATE 2 MG/ML INJ (NOT FOR IM USE) IV PRN (09:30)
[2024-02-12 10:21] LABS: ANISOCYTOSIS 2+; NUCLEATED RED BLOOD CELLS 8 /100 WBC; PLATELET ESTIMATE NORMAL
[2024-02-12] MEDS: PHENYLEPHRINE 100 MG in DEXT 5% WATER 240 ML IV PRN (10:36)
[2024-02-12] MEDS: OLANZAPINE 10 MG/VIAL IM SCH (10:37)
[2024-02-12 13:19] LABS: WHITE BLOOD COUNT 50.1 x1000/uL (4.5-11.0)
[2024-02-12 17:02] LABS: POTASSIUM 4.6 mEq/L (3.5-5.1)
[2024-02-12] MEDS: PHYTONADIONE 10MG/ML INJ SUBCUT SCH (17:08)
[2024-02-12] MEDS: DEXT 5%/0.9% NACL 1,000 ML IV SCH (20:25)
[2024-02-12] MEDS: ACETAMINOPHEN 650MG/20.3ML UDC GT PRN (21:52)
[2024-02-13] VITALS (77 sets, daily range): BP systolic 77–145; BP diastolic 49–79; PULSE 105–130; RESP 15–33; TEMP 97.6–99.5
[2024-02-13 14:11] LABS: BG BASE EXCESS 0.2 mmol/L (-2.0-2.0); BG CARBOXYHEMOGLOBIN 1.4 % (0.5-1.5); BG FRACTION INSPIRED OXYGEN 60; BG HCO3 ACT 23.4 mmol/L (22.0-26.0); BG METHEMOGLOBIN 0.3 % (0.0-1.5); BG OXYGEN SATURATION 88.8 % (92.0-98.5); BG OXYHEMOGLOBIN 87.3 % (94.0-97.0); BG PCO2 31.9 mmHg (35.0-45.0); BG PH 7.484 (7.350-7.450); BG PO2 59.5 mmHg (75.0-100.0); BG SAMPLE SITE RIGHT RADIAL; BG TOTAL HEMOGLOBIN 8.3 g/dL (12.0-18.0); BG VENT MODE VENT - AC
[2024-02-13] MEDS: METOCLOPRAMIDE HCL 10MG/2ML VIAL IV SCH (17:43)
[2024-02-13 18:43] LABS: HEMATOCRIT. 26.8 % (42.0-52.0); MEAN CORPUSCULAR HEMOGLOBIN 30.6 pg (28.0-32.0); MEAN CORPUSCULAR HGB CONC 29.9 g/dL (31.0-37.0); MEAN CORPUSCULAR VOLUME 102.3 fL (80.0-94.0); MEAN PLATELET VOLUME 9.7 fl (7.4-10.4); PLATELET 251 x1000/uL (130-400); RED BLOOD CELL COUNT 2.62 mill/uL (4.7-6.1); RED CELL DISTRIBUTION WIDTH 18.1 % (11.6-14.6)
[2024-02-13 18:44] LABS: DIFFERENTIAL COMMENT 1
[2024-02-13 18:45] LABS: WHITE BLOOD COUNT 60.3 x1000/uL (4.5-11.0)
[2024-02-13 18:50] LABS: CARBON DIOXIDE 25 mEq/L (21-32); CHLORIDE 99 mEq/L (98-107); POTASSIUM 3.9 mEq/L (3.5-5.1); SODIUM 140 mEq/L (136-145)
[2024-02-13 18:51] LABS: CALCIUM 7.6 mg/dL (8.7-10.4)
[2024-02-13 18:56] LABS: GLUCOSE 142 mg/dL (70-105); UREA NITROGEN BLOOD 61 mg/dL (9-23)
[2024-02-13 18:57] LABS: ALANINE AMINOTRANSFERASE > 1100 IU/L (10-49); LACTIC ACID 3.3 mmol/L (0.4-2.0)
[2024-02-13 18:58] LABS: ALBUMIN 2.8 g/dL (3.2-4.8); ASPARTATE AMINOTRANSFERASE > 1000 IU/L (<34); BILIRUBIN TOTAL 1.5 mg/dL (0.1-1.0); CREATINE KINASE 379 IU/L (46-171); PHOSPHORUS 6.4 mg/dL (2.5-4.9)
[2024-02-13 19:03] LABS: CREATININE 4.4 mg/dL (0.6-1.3)
[2024-02-13 19:13] LABS: INR 1.7; PROTHROMBIN TIME 17.9 sec (9.6-11.0)
[2024-02-13 19:42] LABS: ANISOCYTOSIS 1+; NUCLEATED RED BLOOD CELLS 5 /100 WBC; PLATELET ESTIMATE NORMAL
[2024-02-14] VITALS (82 sets, daily range): BP systolic 87–131; BP diastolic 41–66; PULSE 60–130; RESP 0–25; TEMP 98.5–100.9
[2024-02-14 04:39] LABS: MEAN CORPUSCULAR HEMOGLOBIN 31.9 pg (28.0-32.0); MEAN CORPUSCULAR HGB CONC 31.5 g/dL (31.0-37.0); MEAN CORPUSCULAR VOLUME 101.3 fL (80.0-94.0); MEAN PLATELET VOLUME 9.8 fl (7.4-10.4); PLATELET 213 x1000/uL (130-400); RED BLOOD CELL COUNT 2.18 mill/uL (4.7-6.1); RED CELL DISTRIBUTION WIDTH 17.7 % (11.6-14.6)
[2024-02-14 04:42] LABS: CHLORIDE 98 mEq/L (98-107); POTASSIUM 3.9 mEq/L (3.5-5.1); SODIUM 141 mEq/L (136-145)
[2024-02-14 04:43] LABS: CALCIUM 7.5 mg/dL (8.7-10.4); CARBON DIOXIDE 27 mEq/L (21-32)
[2024-02-14 04:48] LABS: GLUCOSE 161 mg/dL (70-105); UREA NITROGEN BLOOD 82 mg/dL (9-23)
[2024-02-14 04:49] LABS: ALANINE AMINOTRANSFERASE > 1100 IU/L (10-49); ASPARTATE AMINOTRANSFERASE 792 IU/L (<34); LACTIC ACID 2.4 mmol/L (0.4-2.0)
[2024-02-14 04:50] LABS: ALBUMIN 2.9 g/dL (3.2-4.8); BILIRUBIN TOTAL 1.4 mg/dL (0.1-1.0); CREATINE KINASE 256 IU/L (46-171); PHOSPHORUS 7.6 mg/dL (2.5-4.9)
[2024-02-14 04:51] LABS: INR 1.4; PROTHROMBIN TIME 14.9 sec (9.6-11.0)
[2024-02-14 05:05] LABS: CREATININE 5.3 mg/dL (0.6-1.3)
[2024-02-14 06:38] LABS: DIFFERENTIAL COMMENT 1
[2024-02-14 06:42] LABS: HEMOGLOBIN. 6.9 g/dL (14.0-18.0); WHITE BLOOD COUNT 48.7 x1000/uL (4.5-11.0)
[2024-02-14 08:45] LABS: BG BASE EXCESS 4.2 mmol/L (-2.0-2.0); BG CARBOXYHEMOGLOBIN 0.6 % (0.5-1.5); BG FRACTION INSPIRED OXYGEN 70; BG HCO3 ACT 26.8 mmol/L (22.0-26.0); BG METHEMOGLOBIN 0.3 % (0.0-1.5); BG OXYHEMOGLOBIN 95.1 % (94.0-97.0); BG PCO2 31.4 mmHg (35.0-45.0); BG PH 7.549 (7.350-7.450); BG PO2 83.8 mmHg (75.0-100.0); BG SAMPLE SITE RIGHT RADIAL; BG TOTAL HEMOGLOBIN 7.2 g/dL (12.0-18.0); BG VENT MODE VENT - AC/VC
[2024-02-14 11:07] LABS: NUCLEATED RED BLOOD CELLS 4 /100 WBC
[2024-02-14 11:08] LABS: ANISOCYTOSIS 1+; PLATELET ESTIMATE NORMAL
[2024-02-14] MEDS: ACETAMINOPHEN 650MG SUPP PR PRN (12:00)
[2024-02-14 18:17] LABS: HEMATOCRIT 23.4 % (42.0-52.0); HEMOGLOBIN 7.1 g/dL (14.0-18.0); MEAN CORPUSCULAR HEMOGLOBIN 31.1 pg (28.0-32.0); MEAN CORPUSCULAR HGB CONC 30.3 g/dL (31.0-37.0); MEAN CORPUSCULAR VOLUME 102.6 fL (80.0-94.0); PLATELET 184 x1000/uL (130-400); RED BLOOD CELL COUNT 2.28 mill/uL (4.7-6.1); RED CELL DISTRIBUTION WIDTH 18.1 % (11.6-14.6)
[2024-02-14 18:30] LABS: WHITE BLOOD COUNT 46.6 x1000/uL (4.5-11.0)
[2024-02-15] VITALS (80 sets, daily range): BP systolic 32–125; BP diastolic 22–101; PULSE 61–130; RESP 18–34; TEMP 97.7–99.5
[2024-02-15] MEDS: ACETAMINOPHEN 325MG TABLET PO PRN (02:50)
[2024-02-15 05:52] LABS: HEMOGLOBIN. 7.1 g/dL (14.0-18.0); MEAN CORPUSCULAR HEMOGLOBIN 31.5 pg (28.0-32.0); MEAN CORPUSCULAR HGB CONC 30.7 g/dL (31.0-37.0); MEAN CORPUSCULAR VOLUME 102.5 fL (80.0-94.0); MEAN PLATELET VOLUME 9.8 fl (7.4-10.4); PLATELET 205 x1000/uL (130-400); RED BLOOD CELL COUNT 2.25 mill/uL (4.7-6.1); RED CELL DISTRIBUTION WIDTH 17.9 % (11.6-14.6)
[2024-02-15 05:53] LABS: INR 1.3
[2024-02-15 05:57] LABS: CALCIUM 7.2 mg/dL (8.7-10.4); CHLORIDE 99 mEq/L (98-107); POTASSIUM 4.1 mEq/L (3.5-5.1); SODIUM 140 mEq/L (136-145)
[2024-02-15 05:58] LABS: CARBON DIOXIDE 25 mEq/L (21-32)
[2024-02-15 06:03] LABS: ALBUMIN 2.6 g/dL (3.2-4.8); ASPARTATE AMINOTRANSFERASE 408 IU/L (<34); GLUCOSE 138 mg/dL (70-105); UREA NITROGEN BLOOD 99 mg/dL (9-23)
[2024-02-15 06:05] LABS: BILIRUBIN TOTAL 1.7 mg/dL (0.1-1.0); PROTEIN TOTAL 4.7 g/dL (6.0-8.3)
[2024-02-15 06:15] LABS: ALANINE AMINOTRANSFERASE 1317 IU/L (10-49)
[2024-02-15 06:20] LABS: CREATININE 6.9 mg/dL (0.6-1.3)
[2024-02-15 06:32] LABS: DIFFERENTIAL COMMENT 1
[2024-02-15 06:34] LABS: WHITE BLOOD COUNT 44.2 x1000/uL (4.5-11.0)
[2024-02-15] MEDS: DEXAMETHASONE 4MG/ML 1ML VIAL ONE (14:41)
[2024-02-15] MEDS: METOCLOPRAMIDE HCL 10MG/2ML VIAL IV SCH (15:06)
[2024-02-15 16:06] LABS: ANISOCYTOSIS 1+; PLATELET ESTIMATE NORMAL
[2024-02-16] VITALS (23 sets, daily range): BP systolic 67–120; BP diastolic 42–62; PULSE 104–117; RESP 17–27; TEMP 97–98.1
[2024-02-16 06:59] LABS: POTASSIUM 4.4 mEq/L (3.5-5.1)
[2024-02-16 07:04] LABS: HEMATOCRIT. 23.7 % (42.0-52.0); HEMOGLOBIN. 7.3 g/dL (14.0-18.0); MEAN CORPUSCULAR HEMOGLOBIN 31.4 pg (28.0-32.0); MEAN CORPUSCULAR VOLUME 101.5 fL (80.0-94.0); MEAN PLATELET VOLUME 9.9 fl (7.4-10.4); PLATELET 219 x1000/uL (130-400); RED BLOOD CELL COUNT 2.34 mill/uL (4.7-6.1); RED CELL DISTRIBUTION WIDTH 18.3 % (11.6-14.6)
[2024-02-16 07:17] LABS: DIFFERENTIAL COMMENT 1
[2024-02-16 07:21] LABS: CREATININE 6.3 mg/dL (0.6-1.3)
[2024-02-16] MEDS: MIDODRINE HCL 5MG TABLET PO SCH (10:31)
[2024-02-16 16:07] LABS: PLATELET ESTIMATE NORMAL
[2024-02-16 16:08] LABS: ANISOCYTOSIS 2+
[2024-02-16] MEDS ORDERED: NALOXONE HCL 0.4MG/ML VIAL IV PRN (16:45)
[2024-02-17] VITALS (35 sets, daily range): BP systolic 97–136; BP diastolic 48–62; PULSE 99–109; RESP 15–25; TEMP 97–99
[2024-02-17 09:23] LABS: MEAN CORPUSCULAR HEMOGLOBIN 31.1 pg (28.0-32.0); MEAN CORPUSCULAR HGB CONC 30.8 g/dL (31.0-37.0); MEAN CORPUSCULAR VOLUME 101.1 fL (80.0-94.0); MEAN PLATELET VOLUME 9.6 fl (7.4-10.4); PLATELET 186 x1000/uL (130-400); RED BLOOD CELL COUNT 2.02 mill/uL (4.7-6.1); RED CELL DISTRIBUTION WIDTH 19.4 % (11.6-14.6); WHITE BLOOD COUNT 20.9 x1000/uL (4.5-11.0)
[2024-02-17 09:29] LABS: POTASSIUM 4.3 mEq/L (3.5-5.1)
[2024-02-17 09:31] LABS: CALCIUM 7.8 mg/dL (8.7-10.4)
[2024-02-17 09:36] LABS: DIFFERENTIAL COMMENT 1
[2024-02-17 09:39] LABS: HEMATOCRIT. 20.4 % (42.0-52.0); HEMOGLOBIN. 6.3 g/dL (14.0-18.0)
[2024-02-17 09:46] LABS: CREATININE 7.2 mg/dL (0.6-1.3)
[2024-02-17 17:27] LABS: ANISOCYTOSIS 1+; PLATELET ESTIMATE NORMAL
[2024-02-18] VITALS (23 sets, daily range): BP systolic 76–137; BP diastolic 45–64; PULSE 96–109; RESP 17–28; TEMP 97–98.7
[2024-02-18 11:48] LABS: HEMATOCRIT 23.2 % (42.0-52.0); HEMOGLOBIN 7.3 g/dL (14.0-18.0)
[2024-02-18 11:57] LABS: INR 1.2; PROTHROMBIN TIME 12.7 sec (9.6-11.0)
[2024-02-18] MEDS: DEXT 5%/0.9% NACL 1,000 ML IV SCH (20:53)
[2024-02-18] MEDS: LACTOBACILLUS GG CAPSULE GT SCH (20:58)
[2024-02-18] MEDS: MEROPENEM 1G/100ML 100 ML IV SCH (22:43)
[2024-02-19] VITALS (19 sets, daily range): BP systolic 78–146; BP diastolic 46–73; PULSE 101–108; RESP 18–30; TEMP 97.1–98.5
[2024-02-19] MEDS: MORPHINE SULFATE 2 MG/ML INJ (NOT FOR IM USE) IV NR (16:27)
[2024-02-19] MEDS ORDERED: MORPHINE SULFATE 2 MG/ML INJ (NOT FOR IM USE) IV PRN (17:00)
[2024-02-19] MEDS ORDERED: NALOXONE HCL 0.4MG/ML VIAL IV PRN (17:00)
[2024-02-19] MEDS: LORAZEPAM 2MG/ML INJ IV PRN (18:41)
[2024-02-20] VITALS: BP 82/49; PULSE 105; RESP 27
[2024-02-20 02:00] VITALS: BP 90/51; PULSE 106; RESP 27
== END 2024-02-20 02:47 | DRG 5 ==
LOC: ER 13:55 → MICUNO 16:50 → EDBEDREQSVC 16:51 → EDBEDREQTM 16:51 → EDBEDREQ 16:51 → 5EST 02-15 23:45
PROVIDERS: ADMIT Internal Medicine; ATTEND Internal Medicine
PROC: 0B113F4 Bypass Trachea to Cutaneous with Tracheostomy Device, Percutaneous Approach (ICD-10-PCS; principal; 2024-02-03)
PROC: 5A1955Z Respiratory Ventilation, Greater than 96 Consecutive Hours (ICD-10-PCS; 2024-02-03)
PROC: 5A1D70Z Performance of Urinary Filtration, Intermittent, Less than 6 Hours Per Day (ICD-10-PCS; 2024-02-04)
PROC: 02HV33Z Insertion of Infusion Device into Superior Vena Cava, Percutaneous Approach (ICD-10-PCS; 2024-02-05)
PROC: B548ZZA Ultrasonography of Superior Vena Cava, Guidance (ICD-10-PCS; 2024-02-05)
PROC: 0BW10FZ Revision of Tracheostomy Device in Trachea, Open Approach (ICD-10-PCS; 2024-02-06)
PROC: 30233K1 Transfusion of Nonautologous Frozen Plasma into Peripheral Vein, Percutaneous Approach (ICD-10-PCS; 2024-02-13)
PROC: 30233K1 Transfusion of Nonautologous Frozen Plasma into Peripheral Vein, Percutaneous Approach (ICD-10-PCS; 2024-02-14)
PROC: 30233N1 Transfusion of Nonautologous Red Blood Cells into Peripheral Vein, Percutaneous Approach (ICD-10-PCS; 2024-02-17)
DX: A41.9 Sepsis, unspecified organism (principal); I46.9 Cardiac arrest, cause unspecified; I63.541 Cerebral infarction due to unspecified occlusion or stenosis of right cerebellar artery; G93.40 Encephalopathy, unspecified; K56.7 Ileus, unspecified; N18.6 End stage renal disease; D68.9 Coagulation defect, unspecified; E87.20 Acidosis, unspecified; J96.02 Acute respiratory failure with hypercapnia; J96.01 Acute respiratory failure with hypoxia; J44.9 Chronic obstructive pulmonary disease, unspecified; J05.10 Acute epiglottitis without obstruction; E83.39 Other disorders of phosphorus metabolism; E83.51 Hypocalcemia; I13.2 Hypertensive heart and chronic kidney disease with heart failure and with stage 5 chronic kidney disease, or end stage renal disease; E11.22 Type 2 diabetes mellitus with diabetic chronic kidney disease; D53.9 Nutritional anemia, unspecified; E87.5 Hyperkalemia; T78.3XXA Angioneurotic edema, initial encounter; I50.30 Unspecified diastolic (congestive) heart failure; I69.30 Unspecified sequelae of cerebral infarction; D50.9 Iron deficiency anemia, unspecified; R13.12 Dysphagia, oropharyngeal phase; T38.0X5A Adverse effect of glucocorticoids and synthetic analogues, initial encounter; D63.1 Anemia in chronic kidney disease; E87.1 Hypo-osmolality and hyponatremia; G93.1 Anoxic brain damage, not elsewhere classified; I63.81 Other cerebral infarction due to occlusion or stenosis of small artery; I47.10 Supraventricular tachycardia, unspecified; I48.0 Paroxysmal atrial fibrillation
CPT/HCPCS: 36415; 36573; 36600; 70486; 70551; 71045; 74018; 76700; 80048; 80053; 80061; 80076; 80202; 82270; 82330; 82375; 82550; 82607; 82728; 82746; 82805; 82962; 83540; 83550; 83605; 83735; 83880; 84100; 84132; 84145; 84478; 84484; 85014; 85018; 85025; 85027; 85044; 85049; 85362; 85384; 86705; 86709; 86850; 86900; 86920; 86927; 87070; 87340; 87804; 90935; 93005; 93971; 94003; 94640; 95816; 99291; A6261; C1725; C1893; J0330; J0456; J0461; J0610; J1100; J1200; J1650; J1815; J1953; J2060; J2185; J2250; J2270; J2405; J2470; J2543; J2704; J2765; J2919; J2920; J2930; J2997; J3010; J3370; J3411; J3430; J3490; J7042; J7050; J7060; P9016; P9017; Q9957